=== PATIENT | male | born 1940 | race Caucasian/White ===

== ENCOUNTER 2019-09-06 23:20 | Emergency (ER) | payer OTHER, BC ==
[2019-09-07 00:04] VITALS: BP 121/58; PULSE 66; TEMP 98.1; BMI 41.3
[2019-09-07] MEDS ORDERED: ACETAMINOPHEN 500 MG TABLET (FP) PO ONE (00:17)
--- NOTE | 2019-09-07 00:17 | PDOC ---
History of Present Illness - General Chief Complaint: Injury Stated Complaint: FALL Time Seen by Provider: 09/06/19 23:56 Past History - Medical History Allergies/Adverse Reactions: Allergies Allergy/AdvReac Type Severity Reaction Status Date / Time No Known Allergies Allergy Verified 09/06/19 23:54 - Psycho-Social/Smoking History Smoking History: Never smoked - Substance Abuse Hx (Audit-C & DAST Scrn) How often the patient has a drink containing alcohol: Never Score: In Men: 4 or > Positive; In Women: 3 or > Positive: 0 Screen Result (Pos requires Nsg. Audit-10AR): Negative In the last yr the pt used illegal drug/Rx for NonMed reason: No Score: Yes response is considered Positive: 0 Screen Result (Positive result requires Nsg. DAST-10): Negative *Physical Exam - Vital Signs Last Vital Signs Temp Pulse Resp BP Pulse Ox 98.1 F 66 20 121/58 L 98 09/06/19 23:25 09/06/19 23:25 09/06/19 23:25 09/06/19 23:25 09/06/19 23:25 Discharge - Discharge Information Condition: Fair - Follow up/Referral - Patient Discharge Instructions - Post Discharge Activity
--- NOTE | 2019-09-07 00:35 | PDOC ---
History of Present Illness - General Chief Complaint: Injury Stated Complaint: FALL Time Seen by Provider: 09/06/19 23:56 History Source: Patient Exam Limitations: No Limitations - History of Present Illness Initial Comments: 09/07/19 00:19 78y M with PMH of CAD s/p stent x3, CHF, COPD (on 3L prn), SBO 01/2019, HTN, IDDM, BPH, Parkinson's Disease presenting to the ER via EMS s/p fall today. Pt states he was in the bathroom and when he got off the toilet, he lost balance and fell. He thinks he may have hit his head on the sink and his back on the tub. He did not attempt to stand up afterward. He is endorsing pain in the lower back. Denies numbness, LOC, headache, changes in vision, chest pain, sob, weakness, abdominal pain, n/v. Per daughter, pt has has been falling frequently, most recently last month where he was evaluated at [facility] and the month prior when he obtained a laceration. PMD has arranged [employer] DEVELOP[employer] but per insurance problems, there is no aide at home at the moment. Uses a walker/wheelchair at home. Daughter also states that patient has chronic erythema of the lower extremity proximal to the ankles for which he has taken antibiotics for 1.5 months ago. Shes states that there is no acute flair up and the erythema is getting better. Pt has been in his usual state of health prior to the fall. PMD: N[place]? PMH: see hpi PSh: see hpi Meds: see med rec Allergies: nkda Social: denies Past History - Medical History Allergies/Adverse Reactions: Allergies Allergy/AdvReac Type Severity Reaction Status Date / Time No Known Allergies Allergy Verified 09/06/19 23:54 - Psycho-Social/Smoking History Smoking History: Never smoked - Substance Abuse Hx (Audit-C & DAST Scrn) How often the patient has a drink containing alcohol: Never Score: In Men: 4 or > Positive; In Women: 3 or > Positive: 0 Screen Result (Pos requires Nsg. Audit-10AR): Negative In the last yr the pt used illegal drug/Rx for NonMed reason: No Score: Yes response is considered Positive: 0 Screen Result (Positive result requires Nsg. DAST-10): Negative Review of Systems - Review of Systems Constitutional: No: Symptoms Reported HEENTM: No: Symptoms Reported Respiratory: No: Symptoms reported Cardiac (ROS): No: Symptoms Reported ABD/GI: No: Symptoms Reported : No: Symptoms Reported Musculoskeletal: Yes: See HPI Integumentary: No: Symptoms Reported Neurological: Yes: See HPI *Physical Exam - Vital Signs Last Vital Signs Temp Pulse Resp BP Pulse Ox 98.1 F 66 20 121/58 L 98 09/06/19 23:25 09/06/19 23:25 09/06/19 23:25 09/06/19 23:25 09/06/19 23:25 - Physical Exam General Appearance: Yes: Nourished, Appropriately Dressed, Obese. No: Apparent Distress HEENT: positive: EOMI, CHRISTINE, Normal ENT Inspection Neck: positive: Trachea midline, Supple Respiratory/Chest: positive: Lungs Clear, Normal Breath Sounds. negative: Chest Tender, Paradoxal Breathing, Crackles, Rales, Rhonchi, Stridor, Wheezing Cardiovascular: positive: Regular Rhythm, Regular Rate, S1, S2. negative: JVD, Murmur Vascular Pulses: Dorsalis-Pedis (R): 2+, Doralis-Pedis (L): 2+ Gastrointestinal/Abdominal: positive: Normal Bowel Sounds, Soft, Other (healed surgical incision scar from suprapubic area to umbilicus). negative: Tender Musculoskeletal: negative: CVA Tenderness, Decreased Range of Motion, Muscle Spasm, Vertebral Tenderness Extremity: positive: Normal Capillary Refill, Pedal Edema (swelling of bilateral feet to ankles) Integumentary: positive: Normal Color, Dry, Warm, Erythema (of BLE proximal to a nkles with induration and warmth. 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 vitals wnl pt complaining of lower back pain. otherwise no neurological deficits, full ROM. erythema and warmth of ble appears cellutic, per pt and daughter, pt has chronic erythema, has been getting treatment. will hold off on abx/labs. -ct head, cspine, lumbar spine. -tylenol ct's negative for fracture. pt is able to ambulate with assistance. spoke to daughter about findings. will dc home. given return precatuions. ambulance called to take pt home. Discharge - Discharge Information Problems reviewed: Yes Clinical Impression/Diagnosis: Fall Qualifiers: Encounter type: initial encounter Qualified Code(s): W19.XXXA - Unspecified fall, initial encounter Condition: Fair Disposition: HOME - Admission No - Follow up/Referral - Patient Discharge Instructions Patient Printed Discharge Instructions: How to Prevent Falls Additional Instructions: You were seen in the ER today for a fall. The CT scans do not show a fracture. I recommend using your walker and/or wheelchair at all times. Please call your primary care doctor about needing assistance at home. Come back to the ER if you have a head injury, have weakness in the arm or leg, have stroke-like symptoms, have difficulty breathing, or if any new or concerning symptom develops. Thank you - Post Discharge Activity
[2019-09-07] MEDS ORDERED: ACETAMINOPHEN 325 MG TABLET (FP) ONE (00:37)
--- NOTE | 2019-09-07 00:58 | PDOC ---
Documentation entered by Barrie Staley SCRIBE, acting as scribe for Luis F Rojas MD. Luis F Rojas MD: This documentation has been prepared by the Rebeka hurley Nirvannie, SCRIBE, under my direction and personally reviewed by me in its entirety. I confirm that the documentation accurately reflects all work, treatment, procedures, and medical decision making performed by me. Attending Attestation - Resident Resident Name: Luzmaria Mathews - ED Attending Attestation I have performed the following: I have examined & evaluated the patient, The case was reviewed & discussed with the resident, I agree w/resident's findings & plan, Exceptions are as noted - HPI HPI: 09/07/19 00:47 The patient is a 78 year old male with a significant past medical hisotry of CAD (s/p cardiac stenting x3), CHF, COPD (3L as needed), HTN, IDDM, Parkinsons Disease, BPH, SBO (01/2019), who presents to the ED s/p fall. Pt states he lost his balance in the bathroom and fell backwards. Patient is unaware if he hit his head on the bathtub. He denies any LOC. Was unable to get up on his own after the fall so called EMS. Pt denies any lightheadedness/SOB/chest pain, or focal weakness/change in sensation. Allergies: NKDA - Physicial Exam PE: 09/07/19 00:59 See resident exam - Medical Decision Making 09/07/19 00:59 78 M with mechanical fall at home. No LOC. - CTs 09/07/19 02:30 CTs unremarkable Incidentally found to have bibasilar atelectasis vs PNA. Pt without respiratory symptoms, no cough, no fever. Low suspicion for PNA Pt ambulatory in ED with minimal assistance (at his baseline) Pt is well appearing, with normal vitals. Clinically stable for DC at this time. I discussed the physical exam findings, ancillary test results and final diagnoses with the patient. I answered all of the patient's questions. The patient was satisfied with the care received and felt comfortable with the discharge plan and treatment plan. The patient agrees to follow up with the primary care physician within 24-72 hours. Please note this patient was evaluated during the COVID-19 crisis with the presidential [place] Act Declaration and the [place] governor executive order number 202. He/she was evaluated and clinical decisions were made relative to healthcare system resources as well as clinical picture during a pandemic crisis situation. Discharge - Discharge Information Problems reviewed: Yes Clinical Impression/Diagnosis: Fall Qualifiers: Encounter type: initial encounter Qualified Code(s): W19.XXXA - Unspecified fall, initial encounter Condition: Fair Disposition: HOME - Follow up/Referral - Patient Discharge Instructions Patient Printed Discharge Instructions: How to Prevent Falls Additional Instructions: You were seen in the ER today for a fall. The CT scans do not show a fracture. I recommend using your walker and/or wheelchair at all times. Please call your primary care doctor about needing assistance at home. Come back to the ER if you have a head injury, have weakness in the arm or leg, have stroke-like symptoms, have difficulty breathing, or if any new or concerning symptom develops. Thank you - Post Discharge Activity
== END 2019-09-07 01:00 | disposition home or self-care (01) ==
LOC: JER 23:20
DX: S09.90XA Unspecified injury of head, initial encounter (principal); W19.XXXA Unspecified fall, initial encounter
CPT/HCPCS: 70450-TC; 72125-TC; 72131-TC; 99284-25

== ENCOUNTER 2019-12-12 13:52 | Inpatient (IN) | payer OTHER, BC ==
--- OUTSIDE RECORDS SUMMARY | 2019-12-12 14:12 | XMS ---
:1940 [facility] Providers Name Role Phone MD Gaudencio Unavailable Unavailable MD Gaudencio Unavailable Unavailable MD Gaudencio Unavailable Unavailable MD Gaudencio Unavailable Unavailable MD Gaudencio Unavailable Unavailable ESTHER KIMBROUGH Unavailable Unavailable KEVIN THAKKAR Unavailable Unavailable LILIANA RIVERA Unavailable Unavailable AMOS, ELENA Unavailable Unavailable NAV CARMONA Unavailable Unavailable EDILSON POLLARD Unavailable Unavailable DANIELLE CHACKO Unavailable Unavailable MD DESTINEY W Unavailable Unavailable EMERGENCY SERVICE, X Unavailable Unavailable Chandy Unavailable Unavailable Chandy Unavailable Unavailable Chandy Unavailable Unavailable Chandy Unavailable Unavailable Chandy Unavailable Unavailable DESTINEY, Devan Unavailable Devan CABELLO Unavailable Devan CABELLO Unavailable Devan CABELLO Unavailable CABELLO, W Unavailable CABELLO, W Unavailable DESTINEY, W Unavailable DESTINEY W Unavailable DESTINEY W Unavailable DESTINEY W Unavailable CABELLO, W Unavailable DESTINEY W Unavailable Devan CABELLO Unavailable MD DESTINEY W Unavailable Unavailable MD DESTINEY W Unavailable Unavailable Re-disclosure Warning The records that you are about to access may contain information from federally- assisted alcohol or drug abuse programs. If such information is present, then the following federally mandated warning applies: This information has been disclosed to you from records protected by federal confidentiality rules (42 CFR part 2). The federal rules prohibit you from making any further disclosure of this information unless further disclosure is expressly permitted by the written consent of the person to whom it pertains or as otherwise permitted by 42 CFR part 2. A general authorization for the release of medical or other information is NOT sufficient for this purpose. The Federal rules restrict any use of the information to criminally investigate or prosecute any alcohol or drug abuse patient.The records that you are about to access may contain highly sensitive health information, the redisclosure of which is protected by Article 27-F of the [facility] Public Health law. If you continue you may haveaccess to information: Regarding HIV / AIDS; Provided by facilities licensed or operated by the [facility] Office of Mental Health; or Provided by the [facility] Office for People With Developmental Disabilities. If such information is present, then the following [facility] mandated warning applies: This information has been disclosed to you from confidential records which are protected by state law. State law prohibits you from making any further disclosure of this information without the specific written consent of the person to whom it pertains, or as otherwise permitted by law. Any unauthorized further disclosure in violation of state law may result in a fine or half-way sentence or both. A general authorization for the release of medical or other information is NOT sufficient authorization for further disclosure. Allergies and Adverse Reactions Type Description Substance Reaction Status Data Source(s ) 9 N/A N/A [facility]) Encounters Encounter Providers Location Date Indications Data Source(s ) Emergency Attender: ATUL 07/19/2019 FINGER INJURY [facility] IVANAttender: 06:01:00 PM Health Car e EMERGENCY SERVICE, EDT Corpor ation XAdmitter: EDILSON POLLARD FINGER INJURY Emergency Attender: Cullen 05/22/2019 BOWEL OBSTUCTION [facility] MDAttender: 12:26:00 PM EDT Health Care EMERGENCY SERVICE, Corpor ation XAdmitter: Cullen Ratliff MD BOWEL OBSTUCTION Outpatient Attender: Woody 05/18/2019 06:00:00 R06.02 [facility] ChandyAdmitter: Woody AM EDT [facility] Care RobertoyReferrer: Woody Cor poration Marie R06.02 Outpatient Attender: AMOS 03/11/2019 06:00:00 S09.90 XA [facility] ZVIAdmitter: AM EST [facility] Care ActiveO ZVIReferrer: ELENA TRINIDAD S09.90XA Inpatient Attender: MIGUEL 01/08/2019 06:01:00 [facility] MARU [facility]A EST - 01/21/2019 [facility] MIGUEL, 06:44:00 PM [facility] Patient admitted. Emergency Attender: MIGUEL 01/08/2019 01:25:00 [facility] MARU RIVERA EST [facility] PAIN Outpatient Attender: MD STACIE RANDLE XR-YSKY 01/05/2019 lab test JEFF Alarcon: 06:00:00 AM [facility]: MD STACIE Alarcon: STACIE CABELLOReferrer: MD STACIE CABELLO lab test P Attender: MD STACIE RANDLE XR-YSKY 01/02/2019 lab test JEFF Alarcon: 10:37:46 PM EDT H [facility] Dorian: MD STACIE Alarcon: MD STACIE CABELLOReferrer: MD STACIE CABELLO lab test Inpatient Attender: 5th Floor-5th 01/02/2019 [facility] ( Abdi View [facility] 01:00:00 PM EDT - Rehabil itation & CABELLO 01/08/2019 Health Care nter 12:30:00 AM EST LLC) Patient discharged. Inpatient Attender: BIJAN 12/25/2018 01:55:00 [facility] PM EDT - 01/02/2019 [facility] 01:40:00 PM EDT Corporati on DISABILITY Patient admitted. Inpatient Attender: BIJAN 12/25/2018 12:58:00 DISABILIT [facility] MARIOAdmitter: BIJAN, PM EDT [facility] DISABILITY Inpatient Attender: BIJAN, 12/25/2018 06:00:00 DISABILIT Y [facility] MARIOAdmitter: BIJAN, AM EDT [facility] Inpatient Attender: LUIS E, 12/20/2018 10:40:00 [facility]BD [facility] MARU CARMONA EDT - 12/25/2018 Health Care NEALAttender: GINNA, 01:54:00 PM EDT C orporation RICHARDAdmitter: ESTHER KIMBROUGH COBD EXAC Outpatient Attender: GINNA, 12/18/2018 COBD EXAC [facility] RICHARDAttender: LUIS E, 02:22:00 PM EDT Health Care CHIKEREAdmitter: Maryse KIMBROUGH rpananya SANTANA COBD EXAC Emergency Attender: LUIS E, 12/18/2018 08:44:00 [facility]U KIMBROUGH EDT [facility] FoxyP2 Outpatient Attender: Woody 04/02/2018 06:00:00 J44.9 [facility] Woody MAHONEY EST [facility] Care ChandyReferrer: Woody Cor poration [facility] J44.9 Medications Medication Brand Start Product Dose Route Administrative Pharmacy [facility] Indications Reaction Description Data Name Date Form Instructions Instructions Source(s) Tdap Tdap 0.5 UNK active Tdap [facility] (Adacel) (Adace 2019 mL (Adacel) Inj r [facility] Inj l) Inj 07:14: 0.5 mL Health 53 PM Care EDT Corporatio n Medication administered onsite Lidocaine 1% Lidocaine 1% 07/19/2019 0 MG UNK active Lidocaine [place] ; Give ; Give 05:52:48 PM 1% ; Give [facility] EDT to provider Care to admin [facility] Medication administered onsite Ondansetron 05/22/2019 999 UNK completed On dansetron [place] HCl 4 MG Oral 05:23:16 PM MG HCl 4 MG [facility] [place] [place] EDT Oral Tablet Health C are TAKE 1 Corporation TABLET EVERY 6 TO 8 HOURS NEEDED FOR PAIN. Dispense: 12 Supervising physician: Cullen Ratliff MD Ondansetron 05/22/2019 999 UNK completed On dansetron [place] HCl 4 MG Oral 05:23:16 PM MG HCl 4 MG [facility] Tab EDT Oral Tablet Health C are TAKE 1 Corporation TABLET EVERY 6 TO 8 HOURS NEEDED FOR PAIN. Dispense: 12 Supervising physician: Cullen Ratliff MD Gastroview PO Gastroview 05/22/2019 1000 UNK active Gastroview [place] Contra PO Contra 01:04:55 PM mL PO Con trast [facility] EDT (Adult) 1000 Health Care mL PO Corporation Medication administered onsite 0.9% 0.9% 05/22/2019 1000 mL UNK active 0.9% NaC l [place] NaCl IV NaCl IV 01:04:55 PM IV 1000 mL; [facility] EDT IV rate: Care Bolus over Corporati on 30 minutes Medication administered onsite Zofran Zofran 05/22/2019 4 mg UNK active Zofran 4mg/2mL [place] 4mg/2mL 4mg/2mL 01:04:55 PM (Ondans etron) [facility] (Onda (Onda EDT Injection 4 mg Car e IV Corporation Medication administered onsite Zofran Zofran 01/08/2019 4 mg UNK active Zofran 4mg/2mL [place] 4mg/2mL 4mg/2mL 03:26:31 AM (Ondans etron) [facility] (Onda (Onda EST Injection 4 mg Car e IVP Corporation Medication administered onsite 0.9% 0.9% 01/08/2019 1000 mL UNK active 0.9% NaC l [place] NaCl IV NaCl IV 01:58:07 AM IV 1000 mL; [facility] EST IV rate: Care Bolus over Corporati on 30 minutes Medication administered onsite Gastroview Gastroview 01/08/2019 1000 UNK active Gastroview [place] PO Contra PO Contra 01:44:50 AM mL PO Contrast [facility] EST (Adult) Health Care 1000 mL PO Corporati on Medication administered onsite lactulose 10 Lactulose 667 01/07/2019 completed lactulose 10 [facility] (Abdi gram/15 mL MG/ML Oral 11:41:11 AM g deamrco/15 mL View oral solution Solution EST oral Re habilitation solution & Health Ca re [facility]) prednisone Prednisone 01/05/2019 completed prednisone [facility] (Abdi 2.5 mg tablet 2.5 MG Oral 11:00:00 PM 2.5 mg View Tablet EST tablet Rehabilitat ion & [facility] Care [facility]) Miriam [id number] 01/05/2019 completed Mylanta [facility] (Abdi Maximum 07:00:00 PM Maximum Vi ew Strength EST Strength 400 Jane abilitation (alum-mag mg-400 mg-40 & Health Care hydroxide-sim mg/5 mL ora l [facility]) eth) 400 suspension mg-400 mg-40 mg/5 mL oral suspension Prilosec [id number] 01/05/2019 completed Prilosec 20 [facility] (Abdi (omeprazole) 07:00:00 PM mg View 20 mg EST capsule,hermes Rehabi litation capsule,delay yed release & Health Care ed release [place] [facility]) Miriam [id number] 01/05/2019 completed Mylanta [facility] (Abdi Maximum 01:33:41 AM Maximum Vi ew Strength EST Strength 400 Jane abilitation (alum-mag mg-400 mg-40 & Health Care hydroxide-sim mg/5 mL [facility]) eth) 400 suspension mg-400 mg-40 mg/5 mL oral suspension Zofran [id number] 01/04/2019 completed Zofran 8 mg [facility] (Abdi (ondansetron 08:00:00 PM table t View hcl) 8 mg EST Rehabilita tion tablet & [facility]) metoprolol [id number] 01/04/2019 completed metoprolol [facility] (Abdi succinate ER 03:46:26 PM succi lissette ER View 50 mg EST 50 mg Rehabilitatio n tablet,extend tablet,exte n & Health Care ed release 24 ded release [facility]) hr 24 hr Fleet Enema Sodium 01/04/2019 completed Fleet Enema [facility] (Abdi (sodium Phosphate, 01:56:53 PM 19 g demarco-7 View phosphates) Dibasic 59.3 EST gram/ 118 mL Rehabilitation 19 gram-7 MG/ML / & Healt h Care gram/118 mL Sodium [facility]) Phosphate, Monobasic 161 MG/ML Enema [Fleet Enema] prednisone 5 Prednisone 5 01/03/2019 completed prednisone 5 [facility] (Abdi mg tablet MG Oral 12:00:00 AM mg ta blet View Tablet EDT Rehabilitatio n & Health Care [facility]) zinc oxide 20 Zinc Oxide 01/02/2019 completed zinc oxide [facility] (Abdi % topical 0.2 MG/MG 10:20:49 AM 20 % topical View ointment Topical EDT ointment Reha bilitation Ointment & Health [facility]) ammonium ammonium 01/02/2019 completed a mmonium [facility] (Abdi lactate 12 % lactate 120 10:20:49 AM lactate 12 % View lotion MG/ML Topical EDT lotion Re habilitation Lotion & Health Care [facility]) Lantus 3 ML Insulin 01/02/2019 completed Lantus [facility] (Abdi Solostar Glargine 100 08:20:13 AM S olostar View U-100 Insulin UNT/ML Pen EDT U-100 Rehabilitation (insulin Injector Insulin 100 & Health Care glargine) 100 [Lantus] unit/mL ( Center [facility]) unit/mL (3 mL) mL) subcutaneous subcutaneous pen pen Humalog 3 ML Insulin 01/02/2019 completed Humalog [facility] (Abdi KwikPen Lispro 100 06:25:45 AM Kwik Pen View (U-100) UNT/ML Pen EDT (U-100) Jane abilitation (insulin Injector Insulin 100 & Health Care lispro) [Humalog] unit/mL [facility]) Insulin 100 subcutaneous unit/mL subcutaneous senna 8.6 mg sennosides, 01/02/2019 completed senna 8.6 mg [facility] (Abdi tablet SENIOR CARE 8.6 MG 06:12:04 AM table t View Oral Tablet EDT Rehabili [facility] & [facility] Care [facility]) Spiriva with tiotropium 01/02/2019 completed Spiriva with [facility] (Abdi HandiHaler 0.018 MG 06:12:04 AM Win diHaler View (tiotropium Inhalation EDT 18 mcg and Rehabilitation bromide) 18 Powder inhalation & Health Care mcg and [Spiriva] capsules [facility]) inhalation capsules Saline Nasal Sodium 01/02/2019 completed Saline Nasal [facility] (Abdi [place] (sodium Chloride 06:12:04 AM [place] 0.65 % View chloride) 0.111 MEQ/ML EDT aerosol Rehabilitation 0.65 % Nasal [place] & [facility] aerosol [facility]) Symbicort 120 ACTUAT 01/02/2019 completed Symbicort [facility] (Abdi (budesonide-f Budesonide 06:12:04 AM 160 mcg-4.5 View ormoterol) 0.16 EDT mcg/actuatio R ehabilitation 160 mcg-4.5 MG/ACTUAT / n HFA & Health Care mcg/actuation formoterol [facility] ol [facility]) HFA aerosol fumarate inhaler inhaler 0.0045 MG/ACTUAT Metered Dose Inhaler [Symbicort] Flomax [id number] 01/02/2019 completed Flomax 0.4 [facility] (Abdi (tamsulosin) 06:12:04 AM mg ca psule View 0.4 mg [facility]T [facility] & Health Car e [facility]) mirtazapine Mirtazapine 01/02/2019 completed mirtazapine [facility] (Abdi 15 mg tablet 15 MG Oral 06:12:04 AM 15 mg tablet View Tablet EDT [facility] [place] [facility] & [facility]) metoprolol Metoprolol 01/02/2019 completed metoprolol [facility] (Abdi tartrate 50 Tartrate 50 06:12:04 AM tartrate 50 View mg tablet MG Oral EDT mg tablet Re habilitation Tablet & [facility] Care [facility]) losartan 50 Losartan 01/02/2019 completed losartan 50 [facility] (Abdi mg tablet Potassium 50 06:12:04 AM mg tablet View MG Oral EDT Rehabilitati on Tablet & [facility] Care [facility]) potassium Microencapsul 01/02/2019 completed potassium [facility] (Abdi chloride ER ated 06:12:04 AM chlori de ER View 20 mEq Potassium EDT 20 mEq Rehabi litation tablet,extend Chloride 20 tabl et,exten & Health Care ed MEQ Extended ded [facility]) release(part/ Release Oral rel ease(part cryst) Tablet /cryst) isosorbide 24 HR 01/02/2019 completed is osorbide [facility] (Abdi mononitrate Isosorbide 06:12:03 AM mononitrate View ER 60 mg Mononitrate EDT ER 60 mg Rehabilitation tablet,extend 60 MG tablet,ext en & Health Care ed release 24 Extended ded rel ease [facility]) hr Release Oral 24 hr Tablet gabapentin gabapentin 01/02/2019 completed gabapentin [facility] (Abdi 600 mg tablet 600 MG Oral 05:53:08 AM 600 mg View Tablet EDT tablet Rehabilitat ion & Health [facility] [place] [facility]) heparin heparin 01/02/2019 completed hep cydney [facility] (Abdi (porcine) sodium, 05:53:08 AM (porc ine) View 5,000 unit/mL porcine 5000 EDT 5,0 00 Rehabilitation injection UNT/ML unit/mL & [facility] Care solution Injectable injection [facility]) Solution solution finasteride 5 Finasteride 5 01/02/2019 completed finasteride [facility] (Abdi mg tablet MG Oral 05:53:08 AM 5 mg tablet View Tablet EDT Rehabilitatio n & Health Care [facility]) Lasix Furosemide 80 01/02/2019 completed Lasix 80 mg [facility] (Abdi (furosemide) MG Oral 05:53:08 AM ta blet View 80 mg tablet Tablet EDT Rehab ilitation [Lasix] & Health Car e [facility]) Cymbalta duloxetine 60 01/02/2019 completed Cymbalta 60 [facility] (Abdi (duloxetine) MG Delayed 05:53:07 AM mg View 60 mg Release Oral EDT capsule,del a Rehabilitation capsule,delay Capsule yed rele [facility] & Health Care ed release [Cymbalta] [facility]) docusate [id number] 01/02/2019 completed docusate [facility] (Abdi sodium 100 mg 05:53:07 AM sodi um 100 View tablet EDT mg tablet [facility] Health Care [facility]) Plavix clopidogrel 01/02/2019 completed Plavix 75 mg [facility] (Abdi (clopidogrel) 75 MG Oral 05:53:07 AM tablet View 75 mg tablet Tablet EDT Rehab ilitation [Plavix] & Health Ca re [facility]) Aspirin Aspirin 81 MG 01/02/2019 completed Aspirin [facility] (Abdi Childrens Chewable 05:53:07 AM Chil drens 81 View (aspirin) 81 Tablet EDT mg chewabl e Rehabilitation mg chewable tablet & [facility] tablet [facility]) carbidopa 25 Carbidopa 25 01/02/2019 completed carbidopa 25 [facility] (Abdi mg-levodopa MG / Levodopa 05:53:07 AM mg-levodopa View 100 mg tablet 100 MG Oral EDT 100 mg Rehabilitation Tablet tablet & Health Ca re Center [facility]) Wellbutrin XL 24 HR 01/02/2019 completed Wellbutrin [facility] (Abdi (bupropion Bupropion 05:53:07 AM XL 300 mg 24 View hcl) 300 mg Hydrochloride EDT hr t ablet, Rehabilitation 24 hr tablet, 300 MG extended & Health Care extended Extended [facility]) release Release Oral Tablet [Wellbutrin] atorvastatin atorvastatin 01/02/2019 completed atorvastatin [facility] (Abdi 80 mg tablet 80 MG Oral 05:53:07 AM 80 mg tablet View Tablet EDT [facility] Care [facility]) amlodipine 10 Amlodipine 10 01/02/2019 completed amlodipine [facility] (Abdi mg tablet MG Oral 05:53:07 AM 10 mg tablet View Tablet EDT [facility] & [facility] Care [facility]) Tubersol Purified 01/02/2019 completed T ubersol 5 [facility] (Abdi (tuberculin Protein 05:40:09 AM tub . View ppd) 5 tub. Derivative of EDT unit /0.1 mL Rehabilitation unit/0.1 mL Tuberculin 50 intr adermal & Health Care intradermal UNT/ML injection C enter [facility]) injection Injectable solution solution Solution [Tubersol] Milk of Magnesium 01/02/2019 completed M ilk of [facility] (Abdi Magnesia Hydroxide 80 05:40:09 AM M agnesia 400 View (magnesium MG/ML Oral EDT mg/5 mL oral Rehabilitation hydroxide) Suspension suspensi on & Health Care 400 mg/5 mL Center L ) oral suspension acetaminophen Acetaminophen 01/02/2019 completed acetaminophe [facility] (Abdi 325 mg tablet 325 MG Oral 05:40:09 AM n 325 mg View Tablet EDT tablet Rehabilitat ion & Health Care [facility]) bisacodyl 5 Bisacodyl 5 01/02/2019 completed bisacodyl 5 [facility] (Abdi mg MG Delayed 05:40:08 AM mg Vi ew tablet,delaye Release Oral EDT tab let,delay Rehabilitation d release Tablet ed release & Health Care Center [facility]) Solu-Medrol Solu-Medrol 12/18/2018 40 UNK active Solu-Medrol [place] (Methylp (Methylp 01:33:41 PM mg (Meth ylpredn [facility] EDT isolone Sod Care Succ) Corporation Injection 40 mg IVP Medication administered onsite Diazepam Diazepam 12/18/2018 2 mg UNK active Sharifa zepam [place] 10mg / 2 mL 10mg / 2 mL 10:37:19 AM 10mg/2mL [facility] EDT (Valium) Care Injection 2 Corporat ion mg IVP Medication administered onsite Ketorolac 30 Ketorolac 30 12/18/2018 15 UNK active Ketorolac [place] mg / mL mg / mL 10:37:10 AM mg 30 mg/m L [facility] EDT (Toradol) Care Injection Corporatio n 15 mg IVP Medication administered onsite DuoNeb DuoNeb 12/18/2018 0.5 UNK active DuoNeb 0.5/3mg/3mL [place] 0.5/3mg/3mL 0.5/3mg/3mL 09:03:35 AM /3 (Ipratropium/Albuterol) [facility] EDT Inh Give 0.5/3mg /3 mL Health Care Inhalation (3 times in May) Medication administered onsite Furosemide Furosemide 12/18/2018 80 UNK active Furosemide [place] (Lasix) I (Lasix) I 09:03:35 AM mg (La six) [facility] Give 80 mg Corporat ion IVP Medication administered onsite 3 ML Insulin Lantus Solostar 12/18/2018 completed [place] Glargine 100 (Insulin 12:00:00 AM [facility] UNT/ML Pen Glargine) [100 EDT Care Injector Lantus unit/mL (3 mL) Corporation Solostar Insulin Pen]: 38 (Insulin Unit Glargine) [100 Subcutaneous unit/mL (3 mL) DAILY Insulin Pen]: 38 Unit Subcutaneous DAILY Insurance Providers Payer name Policy type Policy ID Covered Covered republican's Policy P nathan / Coverage republican ID relationship to Foster Inf ormation type foster PPO [id number] MEDICARE [id number] SP [id number] UNK UNK UNK UNK [id number] UNK UNK UNK Blue Cross / Blue Cross / [id number] Self [id number] [facility] 79 Medicare Medicare [id number] Self [id number] Part B Part B 8 Medicare Medicare [id number] Self [id number] Part A Part A 8 SELF PAY SP Medicare Medicare [id number] Self [id number] Part A Part A 8 UNK [id number] UNK UNK UNK Blue Cross / 6 [id number] Self [id number] [place] [id number] Medicare 2 [id number] Self [id number] Part B 8 Medicare 18 [id number] Self [id number] Part A 8 SELF PAY SP UNK [id number] UNK UNK UNK Problems, Conditions, and Diagnoses Code Display Name Description Problem Type Effective Data Sour ce(s) Dates Z79.4 [facility] (current) RESIDENTIAL [facility] (CURRENT) USE OF 06:01:00 PM Cou [facility] [employer] INSULIN EDT Care Corporati on G20 Parkinson's disease PARKINSON'S Diagnosis 07/19/2019 [facility] DISEASE 06:01:00 PM [facility] EDT Care Corporati on 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 07/19/2019 [facility] infarction INFARCTION 06:01:00 PM [facility] EDT Care Corporati on J44.9 Chronic obstructive CHRONIC Diagnosis 07/19/2019 [facility], OBSTRUCTIVE 06:01:00 PM [facility] unspecified PULMONARY EDT Care Corporat ion DISEASE, UNSPECIFIED E11.9 Type 2 diabetes TYPE 2 DIABETES [facility]LL[facility] WITHOUT 06:01:00 PM C ount Health complications COMPLICATIONS EDT Care Cor poration I50.32 Chronic diastolic CHRONIC DIASTOLIC Diagnosis 07/19/2019 [place] (congestive) heart (CONGESTIVE) 06:01:00 PM [facility] [employer] [facility] failure HEART FAILURE EDT Care Corpor ation I11.0 Hypertensive heart HYPERTENSIVE Diagnosis 07/19/2019 [place] [facility] disease with heart HEART DISEASE 06:01:00 PM Co unty Health failure WITH HEART EDT Care Corporati on FAILURE Z23 Encounter for ENCOUNTER FOR Diagnosis 07/19/2019 [facility] immunization IMMUNIZATION 06:01:00 [facility] alth EDT Care Corporati on Y99.8 Other external OTHER EXTERNAL Diagnosis 07/19/2019 [facility] geraldine cause status CAUSE STATUS 06:01:00 [facility] EDT Care Corporati on Y92.[address] O[address] PLACE IN OTH Diagnosis 07/19/2019 [place] other NON-INSTITUTIONAL 06:01:00 PM [facility] non-institutional RESIDENCE EDT Care Corporation residence as the PLACE place of occurrence of the external cause W05.0XXA Fall from FALL FROM Diagnosis 07/19/2019 [place] non-moving NON-MOVING 06:01:00 PM [facility] wheelchair, initial WHEELCHAIR, EDT Care Corporation encounter INITIAL ENCOUNTER S80.11XA Contusion of right CONTUSION OF Diagnosis 07/19/2019 [place] lower leg, initial RIGHT LOWER LEG, 06:01:00 PM [facility] encounter INITIAL ENCOUNTER EDT Care Co rporation S50.01XA Contusion of right CONTUSION OF Diagnosis 07/19/2019 [place] elbow, initial RIGHT ELBOW, 06:01:00 [facility] encounter INITIAL ENCOUNTER EDT Care Co rporation S61.216A Laceration without LAC W/O FB OF R Diagnosis 07/19/2019 [facility] foreign body of LITTLE FINGER W/O 06:01:00 PM [facility] [employer] right little finger DAMAGE TO NAIL, EDT [facility] [employer] without damage to INIT nail, initial encounter Z98.890 Other specified OTHER SPECIFIED Diagnosis 05/22/2019 [place] postprocedural POSTPROCEDURAL 12:26:00 PM [facility] y Health states STATES EDT Care [facility] on 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 05/22/2019 [facility] use of oral (CURRENT) USE OF 12:26:00 PM [facility] hypoglycemic drugs ORAL HYPOGLYCEMIC EDT Care [employer] DRUGS Z87.2 Personal history of PERSONAL HISTORY Diagnosis 05/22/2019 [place] diseases of the OF DISEASES OF 12:26:00 PM [facility] skin and THE SKIN, SUBCU EDT Care Janie oration subcutaneous tissue E04.9 Nontoxic goiter, NONTOXIC GOITER, Diagnosis 05/22/2019 Reynaldo jacinto unspecified UNSPECIFIED 12:26:00 [facility] EDT Care [employer] on M19.90 Unspecified UNSPECIFIED Diagnosis 05/22/2019 [place] osteoarthritis, OSTEOARTHRITIS, 12:26:00 PM [facility] Health unspecified site UNSPECIFIED SITE EDT Ca re Corporation F32.9 Major depressive MAJOR DEPRESSIVE Diagnosis 05/22/2019 Reynaldo [facility] disorder, single DISORDER, SINGLE 12:26:00 PM [facility] episode, EPISODE, EDT Care [employer] on unspecified UNSPECIFIED I50.30 Unspecified UNSPECIFIED Diagnosis 05/22/2019 [place] diastolic DIASTOLIC 12:26:00 PM [facility] (congestive) heart (CONGESTIVE) EDT [facility] failure HEART FAILURE J45.909 Unspecified asthma, UNSPECIFIED Diagnosis 05/22/2019 [place] uncomplicated ASTHMA, 12:26:00 PM [facility] UNCOMPLICATED EDT Care Corpor ation R10.84 Generalized GENERALIZED Diagnosis 05/22/2019 [place] abdominal pain ABDOMINAL PAIN 12:26:00 PM [facility] Health EDT Care [employer] on R19.7 Diarrhea, DIARRHEA, Diagnosis 05/22/2019 [place] unspecified UNSPECIFIED 12:26:00 PM [facility] EDT Care [facility] on R11.2 Nausea with NAUSEA WITH Diagnosis 05/22/2019 [place] vomiting, VOMITING, 12:26:00 PM [facility] unspecified UNSPECIFIED EDT Care Corpora tion R06.02 Shortness of breath SHORTNESS OF Diagnosis 05/18/2019 [place] BREATH 06:00:00 AM [facility] EDT Care Corpor[facility] on S09.90XA Unspecified injury UNSPECIFIED Diagnosis 03/11/2019 [facility] lopez of head, initial INJURY OF HEAD, 06:00:00 AM [facility] Health encounter INITIAL ENCOUNTER EST Care Co rporation 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 ACQUIRED ABSENCE Diagnosis 01/21/2019 [place] stomach [part of] OF STOMACH (PART 06:44:00 PM [facility] OF) EST [facility] [employer] on E66.9 Obesity, OBESITY, Diagnosis 01/21/2019 [place] unspecified UNSPECIFIED 06:44:00 PM [facility] EST [facility] on K59.09 Other constipation OTHER Diagnosis 01/21/2019 [facility] geraldine CONSTIPATION 06:44:00 PM [facility] EST [facility] on Z87.891 Personal history of PERSONAL HISTORY Diagnosis 01/21/2019 [place] nicotine dependence OF NICOTINE 06:44:00 PM [facility] Health DEPENDENCE EST [facility] [employer] on Z79.899 Other shelter OTHER RESIDENTIAL Diagnosis 01/21/2019 [place] (current) drug (CURRENT) DRUG 06:44:00 PM Count y Health therapy THERAPY EST [facility] [employer] on 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 01/21/2019 [facility] heart disease of DISEASE OF [place] 06:44:00 PM [facility] kashia coronary CORONARY ARTERY EST [facility] artery without W/O ANG PCTRS angina pectoris Z68.41 Body mass index BODY MASS INDEX Diagnosis 01/21/2019 [place] (BMI) 40.0-44.9, (BMI) 40.0-44.9, 06:44:00 PM [facility] [employer] adult ADULT EST [facility] [employer] on K56.50 Intestinal INTESTNL Diagnosis 01/08/2019 [place] adhesions [bands], ADHESIONS, UNSP 06:01:00 AM [facility] unspecified as to TO PARTIAL EST [facility] partial versus VERSUS COMPLETE complete OBST obstruction E66.01 Morbid (severe) Morbid (severe) Diagnosis 01/08/2019 [facility] ([place] obesity due to obesity due to 12:00:00 AM View excess calories excess calories EST [facility]ha bilitation & [facility]) 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 01/08/2019 [facility] ([place] peripheral peripheral 12:00:00 AM View autonomic autonomic EST Rehabilitation & neuropathy neuropathy [facility]) K30 Functional Functional Diagnosis 01/05/2019 [facility] ([place] dyspepsia dyspepsia 12:00:00 AM View EST [facility]) R11.2 Nausea with Nausea with Diagnosis 01/05/2019 [facility] ([place] vomiting, vomiting, 12:00:00 AM View unspecified unspecified EST Rehabilitati on & [facility]) I50.33 Acute on chronic Acute on chronic Diagnosis 01/05/2019 [facility] ([place] diastolic diastolic 12:00:00 AM View (congestive) heart (congestive) EST Reha bilitation & failure heart failure [facility]) K59.09 Other constipation Other Diagnosis 01/04/2019 [facility] (Abdi constipation 12:00:00 AM View ED [facility]) Z95.1 Presence of PRESENCE OF Diagnosis 01/02/2019 [place] aortocoronary AORTOCORONARY 01:40:00 PM [facility] bypass graft BYPASS GRAFT EDT Care [employer]po ration F41.8 Other specified OTHER SPECIFIED Diagnosis 01/02/2019 [place] anxiety disorders ANXIETY DISORDERS 01:40:00 PM [facility] EDT Care [employer] on N40.0 Benign prostatic BENIGN PROSTATIC Diagnosis 01/02/2019 [facility] hyperplasia without HYPERPLASIA 01:40:00 PM [facility] lower urinary tract WITHOUT LOWER EDT Ca Corporation symptoms URINRY TRACT SYMP E78.5 Hyperlipidemia, HYPERLIPIDEMIA, Diagnosis 01/02/2019 [place] unspecified UNSPECIFIED 01:40:00 PM [facility] EDT [facility] on E66.01 Morbid (severe) MORBID (SEVERE) Diagnosis 01/02/2019 [place] obesity due to OBESITY DUE TO 01:40:00 PM Count y Health excess calories EXCESS CALORIES EDT [facility] J18.9 Pneumonia, PNEUMONIA, Diagnosis 01/02/2019 [place] unspecified UNSPECIFIED 01:40:00 PM [facility] organism ORGANISM EDT [facility] on L30.9 Dermatitis, Dermatitis, Diagnosis 01/02/2019 [facility] ([place] unspecified unspecified 12:00:00 AM View EDT [facility]) L85.3 Xerosis cutis Xerosis cutis Diagnosis 01/02/2019 [facility] (Abdi 12:00:00 AM View ED [facility]) R09.81 Nasal congestion Nasal congestion Diagnosis 01/02/2019 [facility] (Abdi 12:00:00 AM View [facility]) E87.6 Hypokalemia Hypokalemia Diagnosis 01/02/2019 [facility] ([place] 12:00:00 AM View [facility]) F32.0 Major depressive Major depressive Diagnosis 01/02/2019 [facility] ([place] disorder, single disorder, single 12:00:00 AM V iew episode, mild episode, mild EDT Rehabili [facility]) Z29.9 Encounter for Encounter for Diagnosis 01/02/2019 [facility] ([place] prophylactic prophylactic 12:00:00 AM View measures, measures, EDT Rehabilitation & unspecified unspecified [facility]) 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 01/02/2019 [facility] ([place]di due to underlying undrl condition w 12:00:00 AM View condition with diabetic EDT Rehabilita tion & diabetic mononeuropathy [facility] ) Z11.1 Encounter for Encounter for Diagnosis 01/02/2019 [facility] ([place] screening for screening for 12:00:00 AM View respiratory respiratory EDT Rehabilitati on & tuberculosis tuberculosis Health [facility] Center [facility]) R52 Pain, unspecified Pain, unspecified Diagnosis 01/02/2019 [facility] (Abdi 12:00:00 AM View EDT [facility]) K59.00 Constipation, Constipation, Diagnosis 01/02/2019 [facility] ([place] unspecified unspecified 12:00:00 AM View EDT [facility]) G47.30 Sleep apnea, Sleep apnea, Diagnosis 01/02/2019 [facility] ([place] unspecified unspecified 12:00:00 AM View EDT [facility]) R06.02 Shortness of breath Shortness of Diagnosis 01/02/2019 [facility] ([place] breath 12:00:00 AM View EDT [facility]) N40.1 Benign prostatic Benign prostatic Diagnosis 01/02/2019 [facility] ([place] hyperplasia with hyperplasia with 12:00:00 AM V iew lower urinary tract lower urinary EDT Re habilitation & symptoms tract symp [facility]) F32.1 Major depressive Major depressive Diagnosis 01/02/2019 [facility] ([place] disorder, single disorder, single 12:00:00 AM V iew episode, moderate episode, moderate EDT [facility]) G20 Parkinson's disease Parkinson's Diagnosis 01/02/2019 [facility] ([place] disease 12:00:00 AM View EDT [facility]) E11.9 Type 2 diabetes Type 2 diabetes Diagnosis 01/02/2019 [facility] ([place] mellitus without mellitus without 12:00:00 AM V iew complications complications EDT Rehabili tation & [facility]) E78.5 Hyperlipidemia, Hyperlipidemia, Diagnosis 01/02/2019 [facility] ([place] unspecified unspecified 12:00:00 AM View EDT [facility]) 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 01/02/2019 [facility] RE (Abdi heart disease of disease of kashia 12:00:00 AM View k[place]ia coronary coronary artery EDT Reha bilitation & artery without w/o ang pctrs [facility] angina [facility]) I10 Essential (primary) Essential Diagnosis 01/02/2019 [facility] ([place] hypertension (primary) 12:00:00 AM View hypertension EDT Rehabilitati on & [facility]) J44.9 Chronic obstructive Chronic Diagnosis 01/02/2019 [facility] ([place] pulmonary disease, obstructive 12:00:00 AM View unspecified pulmonary EDT Rehabilitatio n & disease, [facility] Care unspecified [facility]) I50.32 Chronic diastolic Chronic diastolic Diagnosis 01/02/2019 [facility] (Abdi (congestive) heart (congestive) 12:00:00 AM Vie w failure heart failure EDT Rehabilitat ion & [facility]) R53.81 Other malaise OTHER MALAISE Diagnosis 12/25/2018 [facility] 01:55:00 PM [facility] EDT Care Corpor[facility] on G89.29 Other chronic pain OTHER CHRONIC Diagnosis 12/25/2018 [place] PAIN 01:54:00 PM [facility] EDT Care Corporati on J96.11 Chronic respiratory CHRONIC Diagnosis 12/25/2018 [facility] lopez failure with RESPIRATORY 01:54:00 PM [facility] hypoxia FAILURE WITH EDT Care Corpora tion HYPOXIA N39.0 Urinary tract URINARY TRACT Diagnosis 12/25/2018 [facility] infection, site not INFECTION, SITE 01:54:00 PM [facility] specified NOT SPECIFIED EDT Care Corpor ation G62.9 Polyneuropathy, POLYNEUROPATHY, Diagnosis 12/25/2018 [place] unspecified UNSPECIFIED 01:54:00 PM [facility] EDT Care Corporati on D50.9 Iron deficiency IRON DEFICIENCY Diagnosis 12/25/2018 [place] anemia, unspecified ANEMIA, 01:54:00 PM Coun [facility] UNSPECIFIED EDT Care Corporat ion K21.9 Gastro-esophageal GASTRO-ESOPHAGEAL Diagnosis 12/25/2018 [place] reflux disease REFLUX DISEASE 01:54:00 PM Count y Health without esophagitis WITHOUT EDT [facility] ESOPHAGITIS Results ID Date Data Source [id number] 01/21/2019 02:15:00 AM EST [facility] [id number] Corporation Name Value Range Interpretation Description Data Sup porting Code Source(s) Document(s ) Erythrocytes 4.48 m/mm3 4.70-6 <td> 01/21/2019 [facility] [#/volume] in .10 02:15</td><td> [facility] Blood m/mm3 RBC Health Care </td><td><Nexgence raph styleCode="Bold "> 4.48 L </paragraph>
(4.70-6.10) m/mm3 </td> Hemoglobin 9.6 g/dL 14.0-1 <td> 01/21/2019 [place] [Mass/volume] 8.0 02:15</td><td> [facility] in Blood g/dL HGB [facility] </td><td><Nexgence raph styleCode="Bold "> 9.6 L </paragraph>
(14.0-18.0) g/dL </td> Leukocytes 9.6 k/mm3 4.8-10 <td> 01/21/2019 [place] [#/volume] in .8 02:15</td><td> [facility] Blood by k/mm3 WBC </td><td> Health Care Automated Corporation count 9.6
(4.8-10.8) k/mm3 </td> Hematocrit 33.2 % 40.8-4 <td> 01/21/2019 [place] [Volume 6.9 % 02:15</td><td> County Fraction] of HCT Health Care Blood by </td><td><Nexgence Automated raph count styleCode="Bold "> 33.2 L </paragraph>
(40.8-46.9) % </td> Erythrocyte 74.1 fL 80.0-9 <td> 01/21/2019 [place] mean 4.0 fL 02:15</td><td> [facility] corpuscular [facility] volume </td><td><frank Corporation [Entitic raph volume] by styleCode="Bold Automated "> count 74.1 L </paragraph>
(80.0-94.0) fL </td> Erythrocyte 21.4 pg 27.0-3 <td> 01/21/2019 [place] mean 1.5 pg 02:15</td><td> [facility] corpuscular [facility] hemoglobin </td><td><frank Corporation [Entitic mass] raph by Automated styleCode="Bold count "> 21.4 L </paragraph>
(27.0-31.5) pg </td> Erythrocyte 28.9 % 32.0-3 <td> 01/21/2019 [place] mean 6.0 % 02:15</td><td> [facility] corpuscular [facility] hemoglobin </td><td><frank Corporation concentration raph [Mass/volume] styleCode="Bold in Blood from "> Fetus by 28.9 Automated L count </paragraph>
(32.0-36.0) % </td> Lymphocytes 8.8 % 16.0-5 <td> 01/21/2019 [place] [#/volume] in 0.0 % 02:15</td><td> [facility] Blood by Lymphocytes Health Care Automated </td><td><[employer] count raph styleCode="Bold "> 8.8 L </paragraph>
(16.0-50.0) % </td> Platelets 425 k/mm3 160-41 <td> 01/21/2019 [place] [#/volume] in 0 02:15</td><td> [facility] Blood by k/mm3 Platelet Count Health Care Automated </td><td><frank Corporation count raph styleCode="Bold "> 425 H </paragraph>
(160-410) k/mm3 </td> Platelet mean 9.6 fL 9.8-12 <td> 01/21/2019 [facility] r volume .8 fL 02:15</td><td> County [Entitic MPV [facility] volume] in </td><td><Nexgence Blood by raph Automated styleCode="Bold count "> 9.6 L </paragraph>
(9.8-12.8) fL </td> Erythrocyte 19.7 % 11.5-1 <td> 01/21/2019 [place] distribution 4.5 % 02:15</td><td> [place] width [Entitic RDW Health Care volume] by </td><td><frank [employer] Automated raph count styleCode="Bold "> 19.7 H </paragraph>
(11.5-14.5) % </td> Basophils 0.4 % 0.0-2. <td> 01/21/2019 [place] [#/volume] in 0 % 02:15</td><td> [facility] Blood by Basophils Health Care Automated </td><td> Corporation count 0.4
(0.0-2.0) % </td> Monocytes/Leuk 12.1 % 0.0-11 <td> 01/21/2019 [facility] er ocytes [Pure .0 % 02:15</td><td> [facility] number Monocytes. Health Care fraction] in </td><td><frankatHomestars Blood by raph Automated styleCode="Bold count "> 12.1 H </paragraph>
(0.0-11.0) % </td> Basophils+Eosi 2.5 % 0.0-5. <td> 01/21/2019 [facility] er nophils+Monocy 0 % 02:15</td><td> [facility] marlen [#/volume] Eosinophils Health Care in Blood by </td><td> Corporation Automated count 2.5
(0.0-5.0) % </td> Anisocytosis Slight <td> 01/21/2019 [place] [Presence] in 02:15</td><td> [facility] Blood by Light Anisocytosis Health Care microscopy </td><td> Corporation Slight
</td> Neutrophils 75.3 % 34.0-7 <td> 01/21/2019 [place] [#] in Body 6.0 % 02:15</td><td> [facility] fluid by Neutrophils Health Care Manual count </td><td> Corporation 75.3
(34.0-76.0) % </td> Immature 0.9 % 0.0-0. <td> 01/21/2019 [place] granulocytes/1 5 % 02:15</td><td> [facility] 00 leukocytes IG% Health Care in Blood by </td><td><Nexgence Automated raph count styleCode="Bold "> 0.9 H </paragraph>
(0.0-0.5) %
The IG fraction represents metamyelocytes, myelocytes and/or
promyelocytes and is only reported as part of the automated
differential when found at a percentage of less than 6.
If higher than 6%, a manual differential will be performed.

(0.0-0.5) % </td> Metamyelocytes 2.0 % % <td> 01/15/2019 [facility] er [#/volume] in 02:39</td><td> [facility] Blood by Metamyelocytes Health Care Manual count </td><td><Nexgence raph styleCode="Bold "> 2.0 * AB </paragraph>
% </td> Poikilocytosis SLIGHT <td> 01/18/2019 [facility] er [Presence] in 06:48</td><td> [facility] Blood by Light Poikilocytosis Health Car e microscopy </td><td> [employer] SLIGHT
</td> Polychromasia Slight <td> 01/19/2019 [facility] r [Presence] in 01:13</td><td> [facility] Blood by Light Polychromasia Health Care microscopy </td><td> [employer] Slight
</td> Microcytes Slight <td> 01/21/2019 [place] [Presence] in 02:15</td><td> [facility] Blood by Light Microcytic Health Care microscopy </td><td> [employer] Slight
</td> Hypochromia Slight <td> 01/15/2019 [place] [Presence] in 02:39</td><td> [facility] Blood by Light Hypochromia Health Care microscopy </td><td> [employer] Slight
</td> Glucose 143 mg/dL 70-105 <td> 01/21/2019 [place] [Mass/volume] mg/dL 02:15</td><td> [place] in Blood Glucose-Serum Health Care </td><td><Nexgence raph styleCode="Bold "> 143 H </paragraph>
(70-105) mg/dL </td> Sodium 137 mEq/L 135-14 <td> 01/21/2019 [place] [Moles/volume] 5 02:15</td><td> [place] in Serum or mEq/L Sodium-Serum Health Care Plasma </td><td> [employer] 137
(135-145) mEq/L </td> Ovalocytes Few <td> 01/19/2019 [place] [Presence] in 01:13</td><td> [facility] Blood by Light Ovalocytes Health Care microscopy </td><td> [employer] Few
</td> Schistocytes Occasional <td> 01/19/2019 [facility] [Presence] in 01:13</td><td> [facility] Blood by Light Schistocytes Health Care microscopy </td><td> [employer] Occasional
</td> Carbon 22 mEq/L 22-30 <td> 01/21/2019 [place] dioxide, total mEq/L 02:15</td><td> County [Moles/volume] CO2 </td><td> Health Car e in Serum or Corporation Plasma 22
(22-30) mEq/L </td> Chloride 108 mEq/L 98-107 <td> 01/21/2019 [place] [Moles/volume] mEq/L 02:15</td><td> [place] in Serum or Chloride Health Care Plasma </td><td><Nexgence raph styleCode="Bold "> 108 H </paragraph>
(98-107) mEq/L </td> Potassium 4.1 mEq/L 3.5-5. <td> 01/21/2019 [place] [Moles/volume] 1 02:15</td><td> [place] in Serum or mEq/L Potassium-Serum Health Care Plasma </td><td> [employer] 4.1
(3.5-5.1) mEq/L </td> Aspartate 15 U/L 4-35 <td> 01/21/2019 [place] aminotransfera U/L 02:15</td><td> County se [Enzymatic AST (SGOT) Health Care activity/volum </td><td> Corporation e] in Serum or Plasma 15
(4-35) U/L </td> Alanine 7 U/L 6-55 <td> 01/21/2019 [place] aminotransfera U/L 02:15</td><td> County se [Enzymatic ALT (SGPT) Health Care activity/volum </td><td> Corporation e] in Serum or Plasma 7
(6-55) U/L </td> Creatinine 0.83 mg/dL 0.72-1 <td> 01/21/2019 [place] [Moles/volume] .25 02:15</td><td> [place] in Serum or mg/dL Creatinine. Health Care Plasma </td><td> [employer] 0.83
(0.72-1.25) mg/dL </td> Urea nitrogen 11 mg/dL 6-22 <td> [facility]dL 02:15</td><td> [place] in Blood BUN </td><td> Health Care [employer] 11
(6-22) mg/dL </td> Bilirubin.tota 0.2 mg/dL 0.2-1. <td> 01/21/2019 [facility] er l 3 02:15</td><td> [facility] [Mass/volume] mg/dL Bilirubin - Health Care in Blood [employer] </td><td> 0.2
(0.2-1.3) mg/dL </td> Calcium 8.4 mg/dL 8.6-10 <td> 01/21/2019 [place] [Mass/volume] .2 02:15</td><td> [place] in Blood mg/dL Calcium Health Care </td><td><Nexgence raph styleCode="Bold "> 8.4 L </paragraph>
(8.6-10.2) mg/dL </td> Albumin 2.6 g/dL 3.4-4. <td> 01/21/2019 [place] [Mass/volume] 8 g/dL 02:15</td><td> [place] in Serum or Albumin Health Care Plasma </td><td><Nexgence raph styleCode="Bold "> 2.6 L </paragraph>
(3.4-4.8) g/dL </td> Proteins - 5.8 g/dL 6.4-8. <td> 01/21/2019 [place] Total 3 g/dL 02:15</td><td> [facility] Proteins - Health Care [employer] </td><td><ICRTec raph styleCode="Bold "> 5.8 L </paragraph>
(6.4-8.3) g/dL </td> Lipemic index No Lipemia <td> 01/21/2019 [facility] er of Serum or 02:15</td><td> [facility] Plasma Lipemia Index Health Care </td><td> [employer] No Lipemia
</td> Globulin 3.2 gm/dL 2.9-4. <td> 01/21/2019 [place] [Mass/volume] 0 02:15</td><td> [place] in Serum gm/dL Globulin Health Care </td><td> Corporation 3.2
(2.9-4.0) gm/dL </td> Hemolysis No <td> 01/21/2019 [place] index of Serum Hemolysis 02:15</td><td> County or Plasma Hemolysis Index Health Care </td><td> Corporation No Hemolysis
</td> Anion gap in 7 mEq/L 7-13 <td> 01/21/2019 [place] Serum or mEq/L 02:15</td><td> [facility] Plasma Anion Gap Health Care </td><td> [employer] 7
(7-13) mEq/L </td> Prothrombin 10.7 secs 9.8-12 <td> 01/09/2019 [place] time (PT) .0 03:48</td><td> [facility] secs Prothrombin Health Care Time. [facility] </td><td> 10.7
(9.8-12.0) secs </td> Phosphate 2.6 mg/dL 2.3-4. <td> 01/21/2019 [place] [Mass/volume] 7 02:15</td><td> [facility] in Serum or mg/dL Inorganic Health Care Plasma Phosphorus [facility] </td><td> 2.6
(2.3-4.7) mg/dL </td> Icteric index Non Icteric <td> 01/21/2019 [facility] of Serum or 02:15</td><td> [facility] Plasma Icteric Index Health Care </td><td> [employer] Non Icteric
</td> aPTT panel - 25.6 secs 25.0-3 <td> 01/09/2019 [place] Platelet poor 2.0 03:48</td><td> [facility] plasma secs Partial [facility] Care Thromboplastin [facility] Time </td><td> 25.6
(25.0-32.0) secs </td> Triglyceride 146 mg/dL 30-200 <td> 01/14/2019 [place] [Mass/volume] mg/dL 15:30</td><td> [facility] in Serum or Triglyceride Health Care Plasma </td><td> [facility] 146
(30-200) mg/dL </td> Magnesium 1.8 mg/dL 1.6-2. <td> 01/21/2019 [place] [Mass/volume] 6 02:15</td><td> [facility] in Serum or mg/dL Magnesium Level Health Care Plasma </td><td> [facility] 1.8
(1.6-2.6) mg/dL </td> Glucose 135 mg/dL 70-105 <td> 01/21/2019 [place] [Mass/volume] mg/dL 11:42</td><td> [facility] in Capillary Glucose - Health Care blood by Finger Stick [employer] Glucometer </td><td><frank raph styleCode="Bold "> 135 H </paragraph>
(70-105) mg/dL </td> ID Date Data Source [id number] 01/17/2019 12:00:00 AM [facility] [id number] [facility] [employer] Name Value Range Interpretation Description Data Sup porting Code Source(s) Document(s ) Abdomen 1 (PACSIMAGE <td> 01/17/2019 [place] 00:00</td><td> [facility] ) Final Abdomen 1 View Health Care Result </td><td><Nexgence Name: иван MENA MRN: styleCode="Ital [id number] Sex: M ics">(PACSIMAGE : 1940 Location: M )</paragraph><b Admitting r/>
Physician: Final Result LILIANA RIVERA Requesting

Physician: Name: SANTHOSH MENA SHAHLA Christiansen Exam:
ABDOMEN 1 VW 01/17/2019 Sex: M 00:26
Clinical : 1940 indication:Smal Location: M l bowel
follow-through Admitting Comparison: Physician: Abdominal LILIANA RIVERA radiograph
01/16/2019 Requesting Technique: 2 Physician: supine views of SANTHOSH BARBOUR the abdomen are performed.

Findings: Exam: ABDOMEN 1 Evaluation is VW 01/17/2019 limited by 00:26 patient body

<br/ habitus. > Clinical There are loops indication:Smal of nondilated l bowel small and large follow-through bowel. No radiographic

evidence to Comparison: suggest Abdominal obstruction. radiograph Impression: 01/16/2019 Nonobstructive

bowel gas Technique: 2 pattern. supine views of Resident the abdomen are Radiologist: performed. Attending Radiologist:

Gail Findings: Vini MEZA

Finalizing Evaluation Radiologist: is limited by Gail Martini MD habitus. Transcribed

Date: There are 01/17/2019 loops of 14:58 nondilated Finalized Date: small and large 01/17/2019 bowel. No 14:59 radiographic
evidence to suggest obstruction.

Impression:

Nonobstructive bowel gas pattern.

Resident Radiologist:
Attending Radiologist: Gail Martini MD
Finalizing Radiologist: Gail Martini MD
Transcribed Date: 01/17/2019 14:58
Finalized Date: 01/17/2019 14:59

</td > Chest PA & (PACSIMAGE <td> 01/08/2019 [place] Lateral 02:39</td><td> [facility] Final Chest PA & Health Care Result [facility] Name: TRINA, </td><td>bev Christiansen MRN: raph [id number] Sex: M styleCode="Ital : ics">(PACSIMAGE 1940 Location: Admitting )</paragraph><b Physician: r/>
EMERGENCY Final Result SERVICE Requesting

Physician: Name: CHIP MENA Exam: CHEST
PA AND LATERAL 01/08/2019 Sex: M 02:48
Clinical : 1940 information: Location: Fever
Comparison: Admitting 12/18/2018 Physician: Technique: PA EMERGENCY and lateral SERVICE radiographs of
the chest. Requesting Findings: Physician: Low lung CHIP BETTS volumes. Enlarged

cardiac Exam: CHEST PA silhouette AND LATERAL accentuated by 01/08/2019 the poor 02:48 inspiration.

<br/ Lung brown > Clinical grossly clear. information: IMPRESSION: Fever Cardiomegaly.

Poor Comparison: inspiration. 12/18/2018 Resident

Radiologist: Technique: HAILY Chua and lateral Resident radiographs of Radiologistt the chest. Attending Radiologist:

Caryn Monae Findings: Finalizing

Radiologist: Low lung Caryn Monae volumes. MD Enlarged Transcribed cardiac Date: silhouette 01/08/2019 accentuated by 04:00
Finalized Date: the poor 01/08/2019 inspiration. 07:44 Lung brown grossly clear.

IMPRESSION: Cardiomegaly. Poor inspiration.

Resident Radiologist: José Chua MD Resident Radiologistt
Attending Radiologist: Caryn Monae MD
Finalizing Radiologist: Caryn Monae MD
Transcribed Date: 01/08/2019 04:00
Finalized Date: 01/08/2019 07:44

</td > Bladder US (PACSIMAGE <td> 01/20/2019 [place] 13:12</td><td> [facility] ) Final Bladder US Health Care Result </td><td>Tax Alli Name: иван MENA MRN: styleCode="Ital [id number] Sex: M ics">(PACSIMAGE : 1940 Location: )</paragraph><b Admitting r/>
Physician: Final Result LILIANA RIVERA Requesting

Physician: Name: SHANNON MENA
Exam: US BLADDER Sex: M 01/20/2019
13:30 : 1940 CLINICAL Location: INDICATION:
Assess post Admitting void residual. Physician: TECHNIQUE: LILIANA RIVERA Limited
ultrasound Requesting examination was Physician: Ros the bladder. ANNY Examination was

technically Exam: US limited as the BLADDER patient had 01/20/2019 voided just 13:30 prior to the

<br/ exam and > CLINICAL indicates that INDICATION: he does not Assess post need to void. void residual. COMPARISON: No prior

ultrasound TECHNIQUE: examination of Limited the bladder was ultrasound just a examination was [facility]. performed of FINDINGS: the The volume of
urine within bladder. the bladder is Examination was 33.3 mL. technically Bladder wall limited as the appears patient had thickened which
may be voided just artifactual prior to the secondary to exam and under indicates that distention. he does not Other
etiologies are need to void. not excluded. IMPRESSION:

Limited COMPARISON: No exam. prior Bladder volume ultrasound at the time of examination of imaging is 33.3 the bladder was mL. Resident
just Radiologist: a [facility] Attending [facility]. Radiologist:

Mikael Mckinley FINDINGS: The Finalizing volume of urine Radiologist: within the Mikael Mckinley bladder is 33.3 mL. Transcribed
Date: Bladder wall 01/20/2019 appears 16:02 thickened which Finalized Date: july be 01/20/2019 artifactual 16:04 secondary
to under distention. Other etiologies are not excluded.

IMPRESSION:

Limited exam.

Bladder volume at the time of imaging is 33.3 mL.

Resident Radiologist:
Attending Radiologist: Mikael Mckinley MD
Finalizing Radiologist: Mikael Mckinley MD
Transcribed Date: 01/20/2019 16:02
Finalized Date: 01/20/2019 16:04

</td > Chest (PACSIMAGE <td> 01/19/2019 [place] Portable 05:00</td><td> [facility] ) Final Chest Portable Health Care Result </td><td>[facility] Name: иван MENA MRN: styleCode="Ital [id number] Sex: M ics">(PACSIMAGE : 1940 Location: M )</paragraph><b Admitting r/>
Physician: Final Result LILIANA RIVERA Requesting

Physician: Name: ALONA MENARA SHAHLA Christiansen [facility]
Exam: CHEST PORTABLE Sex: M 01/19/2019
06:10 : 1940 HISTORY: Small Location: M bowel
obstruction. Admitting Shortness of Physician: breath LILIANA RIVERA PROCEDURE:
Portable AP Requesting radiograph Physician: IMPRESSION: [facility] and MONITORING DEVICES: None

LUNGS and Exam: CHEST PLEURA: Linear PORTABLE opacities at 01/19/2019 the left lung 06:10 base,

<br/ atelectasis > HISTORY: versus minor Small bowel scarring, obstruction. without change Shortness of since one day breath earlier HEART

and PROCEDURE: MEDIASTINUM: Portable AP Stable radiograph cardiovascular silhouette

IMPRESSION: Resident Radiologist:

Attending LIFE SUPPORT Radiologist: and MONITORING Keely DEVICES: None Fozia MEZA
Finalizing LUNGS and Radiologist: PLEURA: Linear Keely opacities at Fozia MEZA the left lung Transcribed base, Date: atelectasis 01/19/2019
09:17 versus minor Finalized Date: scarring, 01/19/2019 without change 09:18 since one day earlier
HEART and MEDIASTINUM: Stable cardiovascular silhouette

Resident Radiologist:
Attending Radiologist: Keely Marcelo MD
Finalizing Radiologist: Keely Marcelo MD
Transcribed Date: 01/19/2019 09:17
Finalized Date: 01/19/2019 09:18

</td > ID Date Data Source [id number] 01/09/2019 12:00:00 AM [facility] [id number] Corporation Name Value Range Interpretation Description Data Sup porting Code Source(s) Document(s ) Operative Operative <td> 01/09/2019 [place] Report Report </td><td> County NAME: RTINA, Operative Report Renard GALE MR#: </td><td>
< Corporati on [id number] ADMIT br/>

<b DATE: r/> 01/08/2019 Operative Report SURGERY DATE: 01/09/2019

DISCHARGE NAME: TRINA, DATE: SHAHLA SURGEON:
MR#: [id number] [id number] NUMBER:
ADMIT [id number] DATE: DATE OF 01/08/2019 PROCEDURE:
January 09 DATE: 201801/09/2019 ATTENDING
SURGEON: DISCHARGE DATE: Rebeca Guerrero MD
RESIDENTS: SURGEON: Nel
MD Ady BILLING NUMBER: and Jaswinder Ordoñez, [phone]

PREOPERATIVE DATE OF DIAGNOSIS: PROCEDURE: Small bowel January 09, 2019 obstruction.

POSTOPERATIVE ATTENDING DIAGNOSIS: SURGEON: Rebeca Guerrero MD obstruction.

PROCEDURES: RESIDENTS: Exploratory Ady Medellin MD and lysis of Jaswinder Ordoñez MD adhesions, repair of

serosal PREOPERATIVE tears. DIAGNOSIS: INDICATIONS Small bowel FOR PROCEDURE: obstruction. 78-year-old male with a

history of POSTOPERATIVE partial DIAGNOSIS: gastrectomy, Small bowel cholecystectom obstruction. y and inguinal hernia repair

as well as PROCEDURES: COPD on 3 Exploratory liters of laparotomy, nasal cannula lysis of at home, adhesions, hypertension, repair of diabetes, CHF, serosal Parkinson
disease, tears. coronary

artery disease INDICATIONS FOR status post PROCEDURE: stenting and 78-year-old male lower with a history extremity of partial cellulitis,
who presents gastrectomy, with 5-day cholecystectomy history of and inguinal obstipation hernia repair as and feculent well as COPD on vomiting. NG
tube was 3 liters of placed when he nasal cannula at was in the home, hospital. The hypertension, patient diabetes, CHF, failed to Parkinson resolve with
nonoperative disease, management and coronary artery was taken to disease status the post stenting operating and lower room. extremity DESCRIPTION OF
PROCEDURE: cellulitis, who The patient presents with was brought 5-day history of into the obstipation and operating room feculent and
positioned vomiting. NG supine on the tube was placed operating when he was in table. the hospital. General The patient endotracheal
anesthesia was failed to induced. The resolve with patient's nonoperative abdomen was management and shaved and was taken to the prepped with
ChloraPrep in operating the usual room. sterile

fashion. DESCRIPTION OF Timeout was PROCEDURE: The performed per patient was protocol. A brought into the midline operating room incision was
made with a and positioned #10 scalpel supine on the over his operating table. previous General midline scar. endotracheal The incision
was extended anesthesia was to slightly induced. The below where patient's the scar had abdomen was ended under shaved and his umbilicus prepped with to enter in
[place] ChloraPrep in territory. the usual Electrocautery sterile fashion. was used to Timeout was divide the performed per subcutaneous
tissue. The protocol. A peritoneum midline incision was entered. was made with a With the #10 scalpel over fingers his underneath the
fascia, previous midline electrocautery scar. The was used to incision was incise the extended to remainder of slightly below the fascia where along the
the length of the scar had ended incision. under his Upon entry umbilicus to into the enter in virgin peritoneum, territory. there was a
murky fluid Electrocautery that was was used to suctioned out. divide the There were subcutaneous extensive tissue. The adhesions on peritoneum the left side
of the was entered. abdomen, and With the fingers some adhesions underneath the in the right fascia, upper quadrant electrocautery as well. All was adhesions
used were lysed to incise the with a remainder of the combination of fascia along the Metzenbaum length of the scissors,
electrocautery incision. Upon and LigaSure. entry into the The bowel was peritoneum, ran from the there was a terminal ileum murky fluid that to ligament
of Treitz. was Serosal tears suctioned out. that were There were inherent to extensive the procedure adhesions on the were left side of the identified and
repaired with abdomen, and 3-0 silk and some adhesions Lembert in the right sutures. No upper quadrant enterotomies as well. All were created
during the adhesions were procedure. lysed with a The bowel from combination of the mid Metzenbaum jejunum to scissors, about 10 cm
away from the electrocautery ligament of and LigaSure. Trietz The bowel was appeared ran from the congested terminal ileum with to fecalization
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 Serosal obstruction; tears that were however, it inherent to the appeared procedure viable and was
deemed to not were identified require and repaired resection. At with 3-0 silk the and Lembert conclusion of sutures. No the case, the
peritoneum was enterotomies irrigated with were created normal saline. during the The incision procedure. The was closed bowel from the with running mid continuous #1
looped Maxon jejunum to about sutures, the 10 cm away from skin was the ligament of closed with Trietz appeared skin staplers congested and covered
with a Prevena with VAC. Debrief fecalization of was performed small bowel due per protocol. to chronic The patient obstruction; remained however, it intubated at
the appeared viable conclusion of and was deemed the surgery to not require and was resection. At transferred to the the ICU for
further conclusion of management. the case, the Dr. Guerrero was peritoneum was present for irrigated with duration of normal saline. the case.
The incision DICT: was closed with Nel Garsia M.D. continuous #1 looped Maxon 11 54 AM sutures,
the 12:55:40/HN skin was closed with skin staplers and covered with a ======= END OF Prevena VAC. DOCUMENT /
CHANGE LOG Debrief was FOLLOWS performed per protocol. The === patient remained Elec. Signed intubated at the By ANNA
REBECA #[id number] conclusion on 01/13/2019 of the surgery 11:29 ET and was NATIVIDADDAVID, transferred to NEL the ICU for #[id number] on further 01/12/2019
00:[address] Guerrero was present for duration of the case.

< br/>

DICT: Nel Garsia M.D.
11 54 AM
/HN

===== END OF DOCUMENT / CHANGE LOG FOLLOWS =

Elec. Signed By
REBECA GUERRERO #[id number]
on 01/13/2019 11:29 ET
NEL GARSIA #[id number]
on 01/12/2019 00:26 ET

</td> ID Date Data Source [id number] 01/08/2019 12:18:00 AM EST [facility] [id number] Corporation Name Value Range Interpretation Description Data Source(s ) Supporting Code Document(s ) ABO-Rh Type O POS <td> [place] 01/08/2019 [facility] 00:18</td><td> Care ABO-Rh Type Corporation </td><td> O POS
</td> Antibody NEG <td> [place] Screen 01/08/2019 [facility] 00:18</td><td> Care Antibody Corporation Screen </td><td> NEG
</td> Specimen 01/12/20 <td> [place] expiration 19 23:59 01/08/2019 [facility] date of Blood 00:18</td><td> Care Specimen Corporation Expiration Date </td><td> 01/11/2019 23:59
</td> ID Date Data Source [id number] 12/29/2018 05:43:00 AM EDT [facility] [id number] Corporation Name Value Range Interpretation Description Data Sup porting Code Source(s) Document(s ) Leukocytes 7.2 k/mm3 4.8-10 <td> 12/29/2018 [place] [#/volume] in .8 05:43</td><td> [facility] Blood by k/mm3 WBC </td><td> Health Care Automated count Corporation 7.2
(4.8-10.8) k/mm3 </td> Erythrocytes 5.34 m/mm3 4.70-6 <td> 12/29/2018 [facility] [#/volume] in .10 05:43</td><td> [facility] Blood m/mm3 RBC </td><td> Health Care Corporation 5.34
(4.70-6.10) m/mm3 </td> Hematocrit 39.8 % 40.8-4 <td> 12/29/2018 [place] [Volume 6.9 % 05:43</td><td> [facility] Fraction] of HCT Health Care Blood by </td><td><Nex[employer] Automated count raph styleCode="Bold "> 39.8 L </paragraph>
(40.8-46.9) % </td> Hemoglobin 11.3 g/dL 14.0-1 <td> 12/29/2018 [place] [Mass/volume] 8.0 05:43</td><td> [facility] in Blood g/dL [facility] </td><td><Nexgence raph styleCode="Bold "> 11.3 L </paragraph>
(14.0-18.0) g/dL </td> Erythrocyte 74.5 fL 80.0-9 <td> 12/29/2018 [place] mean 4.0 fL 05:43</td><td> [facility] corpuscular [facility] volume [Entitic </td><td><frank Corporat ion volume] by raph Automated count styleCode="Bold "> 74.5 L </paragraph>
(80.0-94.0) fL </td> Erythrocyte 21.2 pg 27.0-3 <td> 12/29/2018 [place] mean 1.5 pg 05:43</td><td> [facility] corpuscular [facility] Health Care hemoglobin </td><td><frank Corporation [Entitic mass] raph by Automated styleCode="Bold count "> 21.2 L </paragraph>
(27.0-31.5) pg </td> Erythrocyte 18.6 % 11.5-1 <td> 12/29/2018 [place] distribution 4.5 % 05:43</td><td> [facility] width [Entitic RDW Health Care volume] by </td><td><frank [employer] Automated count raph styleCode="Bold "> 18.6 H </paragraph>
(11.5-14.5) % </td> Platelet mean 10.7 fL 9.8-12 <td> 12/29/2018 [facility] r volume [Entitic .8 fL 05:43</td><td> County volume] in MPV </td><td> Health Care Blood by Corporation Automated count 10.7
(9.8-12.8) fL </td> Erythrocyte 28.4 % 32.0-3 <td> 12/29/2018 [place] mean 6.0 % 05:43</td><td> [facility] corpuscular [facility] Health Care hemoglobin </td><td><frank Corporation concentration raph [Mass/volume] styleCode="Bold in Blood from "> Fetus by 28.4 Automated count L </paragraph>
(32.0-36.0) % </td> Platelets 273 k/mm3 160-41 <td> 12/29/2018 [place] [#/volume] in 0 05:43</td><td> [facility] Blood by k/mm3 Platelet Count Health Care Automated count </td><td> Corporation 273
(160-410) k/mm3 </td> Sodium 138 mEq/L 135-14 <td> 12/29/2018 [place] [Moles/volume] 5 05:43</td><td> County in Serum or mEq/L Sodium-Serum Health Care Plasma </td><td> [employer] 138
(135-145) mEq/L </td> Glucose 144 mg/dL 70-105 <td> 12/29/2018 [place] [Mass/volume] mg/dL 05:43</td><td> [facility] in Blood Glucose-Serum Health Care </td><td><Nexgence raph styleCode="Bold "> 144 H </paragraph>
(70-105) mg/dL </td> Carbon dioxide, 28 mEq/L 22-30 <td> 12/29/[facility] total mEq/L 05:43</td><td> County [Moles/volume] CO2 </td><td> Health Car e in Serum or Corporation Plasma 28
(22-30) mEq/L </td> Chloride 101 mEq/L 98-107 <td> 12/29/2018 [place] [Moles/volume] mEq/L 05:43</td><td> [facility] in Serum or Chloride Health Care Plasma </td><td> [employer] 101
(98-107) mEq/L </td> Potassium 3.9 mEq/L 3.5-5. <td> 12/29/2018 [place] [Moles/volume] 1 05:43</td><td> [facility] in Serum or mEq/L Potassium-Serum Health Care Plasma </td><td> [employer] 3.9
(3.5-5.1) mEq/L </td> Urea nitrogen 26 mg/dL 6-22 <td> 12/29/2018 [facility] [Mass/volume] mg/dL 05:43</td><td> [facility] in Blood BUN Health Care </td><td><Nexgence raph styleCode="Bold "> 26 H </paragraph>
(6-22) mg/dL </td> Alanine 12 U/L 6-55 <td> 12/26/2018 [place] aminotransferas U/L 06:31</td><td> County e [Enzymatic ALT (SGPT) Health Care activity/volume </td><td> Corporation ] in Serum or Plasma 12
(6-55) U/L </td> Creatinine 1.25 mg/dL 0.72-1 <td> 12/29/2018 [place] [Moles/volume] .25 05:43</td><td> County in Serum or mg/dL Creatinine. Health Care Plasma </td><td> [employer] 1.25
(0.72-1.25) mg/dL </td> Aspartate 12 U/L 4-35 <td> 12/26/2018 [place] aminotransferas U/L 06:31</td><td> County e [Enzymatic AST (SGOT) Health Care activity/volume </td><td> [employer] ] in Serum or Plasma 12
(4-35) U/L </td> Bilirubin.total 0.2 mg/dL 0.2-1. <td> 12/26/2018 [facility] [Mass/volume] 3 06:31</td><td> [place] in Blood mg/dL Bilirubin - Health Care Total Corporation </td><td> 0.2
(0.2-1.3) mg/dL </td> Albumin 3.3 g/dL 3.4-4. <td> 12/26/2018 [place] [Mass/volume] 8 g/dL 06:31</td><td> [facility] in Serum or Albumin Health Care Plasma </td><td><frank Corporation raph styleCode="Bold "> 3.3 L </paragraph>
(3.4-4.8) g/dL </td> Calcium 8.7 mg/dL 8.6-10 <td> 12/29/2018 [place] [Mass/volume] .2 05:43</td><td> [place] in Blood mg/dL Calcium Health Care </td><td> Corporation 8.7
(8.6-10.2) mg/dL </td> Proteins - 6.0 g/dL 6.4-8. <td> 12/26/2018 [place] Total 3 g/dL 06:31</td><td> [facility] Proteins - Health Care [employer] Corporation </td><td><frank raph styleCode="Bold "> 6.0 L </paragraph>
(6.4-8.3) g/dL </td> Globulin 2.7 gm/dL 2.9-4. <td> 12/26/2018 [place] [Mass/volume] 0 06:31</td><td> [facility] in Serum gm/dL Globulin Health Care </td><td><frank Corporation raph styleCode="Bold "> 2.7 L </paragraph>
(2.9-4.0) gm/dL </td> Hemolysis index No <td> 12/29/2018 [facility] of Serum or Hemolysis 05:43</td><td> [facility] Plasma Hemolysis Index [facility] </td><td> [employer] No Hemolysis
</td> Anion gap in 9 mEq/L 7-13 <td> 12/29/2018 [place] Serum or Plasma mEq/L 05:43</td><td> [facility] Anion Gap [facility] </td><td> [employer] 9
(7-13) mEq/L </td> Lipemic index No Lipemia <td> 12/29/2018 [facility] er of Serum or 05:43</td><td> [facility] Plasma Lipemia Index [facility] </td><td> [employer] No Lipemia
</td> Icteric index Not <td> 12/29/2018 [facility] r of Serum or Icteric 05:43</td><td> [facility] Plasma Icteric Index [facility] </td><td> [employer] Not Icteric
</td> aPTT panel - 25.2 secs 25.0-3 <td> 12/26/2018 [place] Platelet poor 2.0 06:31</td><td> [facility] plasma secs Partial [facility] Thromboplastin [facility] Time </td><td> 25.2
(25.0-32.0) secs </td> Prothrombin 10.4 secs 9.8-12 <td> 12/26/2018 [place] time (PT) .0 06:31</td><td> County secs Prothrombin Health Care Time. Corporation </td><td> 10.4
(9.8-12.0) secs </td> Protein Negative <td> 12/25/2018 [place] [Presence] in 18:00</td><td> [facility] Urine by Protein Health Care Automated test [employer] Corporation strip </td><td> Negative
(NEGATIVE) </td> Specific 1.011 {} 1.000- <td> 12/25/2018 [place] gravity of 1.035 18:00</td><td> [facility] Urine by Test Specific Health Care strip [place] Corporation </td><td> 1.011
(1.000-1.035) </td> Appearance of Clear <td> 12/25/2018 [facility] r Urine 18:00</td><td> [facility] Appearance Health Care </td><td> Corporation Clear
(CLEAR) </td> Urobilinogen 0.2 mg/dL 0.0-2. <td> 12/25/2018 [place] [Presence] in 0 18:00</td><td> [facility] Urine by mg/dL Urobilinogen Health Care Automated test </td><td> Corporation strip 0.2
(0.0-2.0) mg/dL </td> Nitrite Negative <td> 12/25/2018 [place] [Presence] in 18:00</td><td> [facility] Urine by Test Nitrites Health Care strip </td><td> Corporation Negative
(NEGATIVE) </td> Leukocyte 1+ <td> 12/25/2018 [place] esterase 18:00</td><td> County [Presence] in Leukocytes Health Care Urine by Test Esterase Corporation strip </td><td><frank raph styleCode="Bold "> 1+ * AB </paragraph>
(NEGATIVE) </td> Glucose Negative <td> 12/25/2018 [place] [Presence] in 18:00</td><td> [facility] Urine by Test Glucose_ Health Care strip </td><td> Corporation Negative
(NEGATIVE) </td> Leukocytes 4 /HPF 0-5 <td> 12/25/2018 [place] [Presence] in /HPF 18:00</td><td> [facility] Urine by WBC </td><td> Health Care Automated Corporation 4
(0-5) /HPF </td> Bacteria NONE SEEN <td> 12/25/2018 [place] [#/area] in 18:00</td><td> [facility] Urine sediment Bacteria Health Care by Microscopy </td><td> [employer] high power field NONE SEEN
(NONE) /HPF </td> Erythrocytes 1 /HPF 0-2 <td> 12/25/2018 [place] [#/area] in /HPF 18:00</td><td> [facility] Urine sediment RBC </td><td> Health Car e by Automated [employer] count 1
(0-2) /HPF </td> Epithelial RARE <td> 12/25/2018 [place] cells [#/area] <= FEW 18:00</td><td> [facility] in Urine Epithelial Health Care sediment by [employer] Automated count </td><td> RARE
/LPF
<= FEW

/LPF </td> Glucose 160 mg/dL 70-105 <td> 01/02/2019 [place] [Mass/volume] mg/dL 11:24</td><td> [facility] in Capillary Glucose - Health Care blood by Finger [employer] Glucometer </td><td><frank raph styleCode="Bold "> 160 H </paragraph>
(70-105) mg/dL </td> Mucous RARE <td> 12/25/2018 [place] <= FEW 18:00</td><td> [facility] Mucous Health Care </td><td> Corporation RARE
/LPF
<= FEW

/LPF </td> ID Date Data Source [id number] 12/25/2018 12:00:00 AM EDT [facility] [id number] Corporation Name Value Range Interpretation Description Data Sup porting Code Source(s) Document(s ) Glucose [place] <td> 12/25/2018 [place] [[facility] </td><td> [facility]] in DISCHARGE Discharge Health Care Capillary SUMMARY Summary Carmine blood by NAME: TRINA </td><td>
< Glucometer SHAHLA br/>

< MR#: [id number] br/>

< ADMIT DATE: br/> 12/20/2018 [facility] CENTER SUMMARY
COMPLETION DISCHARGE DATE: SUMMARY 12/25/2018
BILLING NAME: TRINA NUMBER: SHAHLA [id number]
[id number] MR#: [id number] Attending
Physician:[id number] ADMIT DATE: 53 NAV CARMONA 12/20/2018 [facility] Rehab to
[facility] SUMMARY [id number] COMPLETION Written and DATE: Reviewed 12/25/2018 by:[id number]
NAV CARMONA BILLING NUMBER: REASON FOR [id number] HOSPITALIZATIO
N: [id number] Dizziness,
UTI, Pneumonia Attending DISCHARGE Physician:[id number] SUMMARY 3 NAV CARMONA DEPARTMENT OF
MEDICINE, [facility] Rehab to [facility],
[place], [place] [id number] I. General
Information Written and Name and Title Reviewed of person by:[id number] ankita CARMONA the NAV summary: Nav
Ila II. REASON FOR Diagnosis HOSPITALIZATION Primary : Diagnosis:
UTI Dizziness, UTI, Secondary Pneumonia Diagnoses:
Pneumonia DISCHARGE Procedures: SUMMARY CT Chest,
Head, Echo DEPARTMENT OF III. Hospital MEDICINE, Course Chief [facility], Dizziness/Fall [place], [place] s Reason for admission:

Falls I. General Hospital Information course:
Mr. Mena is a Name and Title 78 y/o M with of person hx of COPD on preparing the 3L Home O2, summary: Nav Hypertension, Ila IDDM,

Diastolic II. Diagnosis Heart Fialure,
CAD s.p PCI, Primary parkinsons, Diagnosis: UTI Chronic LE edema/Venous
stasis, who Secondary presents with Diagnoses: recurrent Pneumonia falls.
Recurrent Procedures: CT falls: Chest, Head, Differential Echo likely due to

underlying III. Hospital infection as Course well as
Orthostatic Chief Complaint Hypotension. Dizziness/Falls Patient also noted to be on
many Reason for medications admission: which may Falls contribute to
patient s Hospital condition. course: Patient had

CT head which Mr. Mena is was a 78 y/o M with unremarkable. hx of COPD on Patient s 3L Home O2, Lasix was Hypertension, reduced to
80mg ONCE a IDDM, day at this Diastolic Heart time. Please Octavio CAD monitor his s.p PCI, fluid status parkinsons, and adjust Chronic LE dose as
tolerated. In edema/Venous addition, stasis, who his Losartan presents with was decreased recurrent from 50mg to falls. 25mg at this

time. Patient Recurrent had an Echo falls: completed on Differential this admission likely due to which was underlying unchanged. Can infection as consider
reducing Imdur well as if patient Orthostatic continues to Hypotension. be Patient also orthostatic. noted to be on many UTI/Pneumonia:
Patient was medications noted to have which may UTI as well as contribute to Pneumonia on patient s CT scan. condition. Patient needs Patient had to continue [address] head which ANTIBIOTICS. was Patient unremarkable. should
continue Patient s Levofloxacin. Lasix was Please reduced to 80mg complete taper ONCE a day at of steroids at this time. this time Please Abnormal CT
chest: patient monitor his was noted to fluid status have Mild and adjust dose pulmonary as tolerated. fibrotic In addition, changes.
Mucous plug his Losartan with was decreased surrounding from 50mg to tree-in-bud 25mg at this opacities time. Patient within the had right middle
an lobe. . He Echo completed will need a on this follow up CT admission which Chest in 6-8 was unchanged. weeks and Can consider follow up with
pulmonology. reducing CAD s/p Imdur if PCI: Patient patient was continued continues to be on Aspirin, orthostatic. Plavix, metoprolol,

ARB, at this UTI/Pneumonia: time. Patient was IDDM: Patient noted to have was continued UTI as well as on his home Pneumonia on dose of
Lantus/Lispro CT scan. at this Patient needs time. His to continue 4 blood sugars MORE DAYS OF have been well ANTIBIOTICS. controlled. Patient BPH
Patient was should continue continue on Levofloxacin. his tamsulosin Please complete and taper of finasteride. steroids at Chronic
Neck/back this time pain: Patient was continued

on Cymbalta Abnormal CT and chest: patient gabapentin at was noted to this time. have Mild Depression:
patient was pulmonary continued on fibrotic Bupropion and changes. Mucous mirtazapine. plug with COPD: surrounding Please tree-in-bud complete
Prednisone opacities taper. within the Continue Nebs. right middle Patient at lobe. . He will baseline O2 need a follow with 3L at up CT this time.
IV. Chest in 6-8 Physical Exam weeks and and mental follow up with status : AAO x pulmonology. 3 V. Code status:

Full CAD s/p PCI: Patient was Information To continued on Contact [facility] Aspirin, [facility] Plavix, metoprolol, Medical
Records (303) ARB, at this [phone] time. Medical

Attendings IDDM: Patient Office ([phone]) was continued [phone] on his home Exam: CT dose of THORAX C- Lantus/Lispro 12/19/2018 at this 14:05
CLINICAL time. His blood INDICATION: sugars have COPD been well exacerbation, controlled. rule out pneumonia

TECHNIQUE: BPH Noncontrast CT
of the chest Patient was was performed. continue on his Images are tamsulosin and reformatted in finasteride. the coronal and sagittal

planes. Chronic Up-to-date CT Neck/back pain: equipment Patient was using continued on Automatic Cymbalta and Exposure
Control, dose gabapentin at modulation, this time. and iterative reconstruction

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 continued on The total Bupropion and study DLP is mirtazapine. approximately 823 mGy-cm.

COPD: Please COMPARISON: CT complete angiogram of Prednisone the chest taper. Continue abdomen and Nebs. Patient pelvis dated at 04/25/2018.
INTERPRETATIO baseline O2 N: TUBES with 3L at this AND LINES: time. None.

<br/ AIRWAYS, > IV. LUNGS, and Physical Exam PLEURA: Small and mental amount of status : AAO x mucus within 3 the upper

thoracic V. Code trachea. status: Full Emphysema. Diffuse mosaic

attenuation

throughout the Information To lungs with Contact [facility] multiple
tree-in-bud [facility] opacities throughout
the left upper Medical lobe. There is Records ([phone]) focal airspace [phone] disease within
the left Medical lower lobe Attendings consistent Office ([phone]) with [phone] developing
left lower Exam: CT THORAX lobe C- 12/19/2018 pneumonia. 14:05 Trace left

<br/ pleural > CLINICAL effusion with INDICATION: associated COPD atelectasis. exacerbation, Mild rule out pulmonary pneumonia fibrotic

changes. TECHNIQUE: Mucous plug Noncontrast CT with of the chest surrounding was performed. tree-in-bud Images opacities
are within the reformatted in right middle the coronal and lobe. sagittal MEDIASTINUM: planes. There are
mildly Up-to-date CT enlarged equipment using mediastinal Automatic lymph nodes, Exposure with Control, dose persistent
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
1.6 cm in was employed. short axis, is
unchanged from The total the prior study DLP is examination. approximately Unchanged, 823 mGy-cm. prominent bilateral

hilar lymph COMPARISON: nodes CT angiogram of measuring up the chest to 1.2 cm in abdomen and short axis. pelvis dated These may be
reactive in 04/25/2018. nature. There are no

enlarged INTERPRETATION: axillary lymph nodes The

visualized TUBES AND portion of the LINES: None. thyroid gland is

unremarkable. AIRWAYS, LUNGS, HEART AND and PLEURA: VESSELS: The Small amount of heart is mucus within normal in the size. There
upper are aortic thoracic and coronary trachea. artery Emphysema. calcifications Diffuse mosaic . The thoracic attenuation aorta has a
normal throughout the caliber. There lungs with is no multiple pericardial tree-in-bud effusion. opacities UPPER ABDOMEN: throughout The anterior
abdominal wall the left upper is not lobe. There is included focal airspace within the disease within [id number]. the Post
left cholecystectom lower lobe y. Surgical consistent with material is developing left seen within lower lobe the josiah pneumonia. hepatis. Fatty
atrophy of the Trace left pancreas. pleural Distal effusion with gastrectomy associated with atelectasis. gastrojejunost Mild raul. Haziness
of the pulmonary mesentery, fibrotic stable from changes. Mucous the prior plug with examination. surrounding BONES AND tree-in-bud SOFT TISSUES:
Revisualized opacities hemangiomas of within the the spine. right middle The soft lobe. tissues are

unremarkable. MEDIASTINUM: There are IMPRESSION: mildly enlarged 1. Left mediastinal lower lobe lymph nodes, pneumonia.
Additional with foci of persistent suspected right infection in paratracheal the right lymph node middle lobe enlargement and lingula. measuring Follow-up to
resolution approximately is recommended 1.6 cm in short given the axis, is nodular unchanged from appearance of the prior some of the
opacities.. examination. 2. Air Unchanged, trapping. prominent Echo bilateral hilar Interpretation lymph nodes Summary
The left measuring up ventricle is to 1.2 cm in normal in short axis. size. These may be There is reactive in normal left
ventricular nature. There wall are no enlarged thickness. axillary lymph Left nodes The ventricular visualized ejection
fraction is portion of the 60%. thyroid gland There is is hypokinesis of unremarkable. the basal inferior wall.

There is HEART AND hypokinesis of VESSELS: The the mid heart is normal inferior wall in size. There . There are aortic is hypokinesis
of the basal and coronary inferoseptal artery wall. calcifications. 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
consistent normal with abnormal caliber. There LV is no relaxation. pericardial The right effusion. ventricular

systolic UPPER function is ABDOMEN: The normal. anterior Indexed left abdominal wall atrial volume is not included is normal. within There is no
the aortic [id number]. stenosis. Post Trivial mitral cholecystectomy valve . Surgical regurgitation. material is Trivial
tricuspid seen within valve the josiah regurgitation. hepatis. Fatty The aortic atrophy of the root is normal pancreas. in size.
There was Distal insufficient gastrectomy tricuspid with regurgitation gastrojejunosto detected to my. Haziness of calculate the mesentery, pulmonary
artery stable from systolic the prior pressure. examination. The inferior vena cava is

normal in size BONES AND SOFT and collapses TISSUES: normally Revisualized with hemangiomas of respiration, the spine. suggestive of
normal right The soft atrial tissues are pressure (3 unremarkable. mmHg). There is no

pericardial IMPRESSION: effusion. Compared with

the previous 1. Left lower echo performed lobe pneumonia. on 03.22.2018, Additional foci there is no of suspected significant infection change.
in the right ======== END middle lobe and OF DOCUMENT / lingula. CHANGE LOG Follow-up to FOLLOWS resolution
=== Elec. is recommended Signed By given the NAV CARMONA #[id number] on appearance of 01/01/2019 some of the 11:45 ET opacities..
2. Air trapping.

Echo
Interpretation Summary

The left ventricle is normal in size.

There is normal left ventricular wall thickness.

Left ventricular ejection fraction is 60%.

There is hypokinesis of the basal inferior wall.

There is hypokinesis of the mid inferior wall .

There is hypokinesis of the basal inferoseptal wall.

<br/ > Grade I diastolic dysfunction, consistent with abnormal LV
relaxation.

The right ventricular systolic function is normal.

Indexed left atrial volume is normal.

There is no aortic stenosis.

Trivial mitral valve regurgitation.

Trivial tricuspid valve regurgitation.
The aortic root is normal in size.
There was insufficient tricuspid regurgitation detected to
calculate
pulmonary artery systolic pressure.
The inferior vena cava is normal in size and collapses normally
with
respiration, suggestive of normal right atrial pressure (3
mmHg).
There is no pericardial effusion.
Compared with the previous echo performed on 03.22.2018, there
is no
significant change.

====== END OF DOCUMENT / CHANGE LOG FOLLOWS ==

Elec. Signed By
NAV CARMONA #[id number]
on 01/01/2019 11:45 ET

</td> ID Date Data Source [id number]- 12/24/2018 06:54:00 AM EDT [facility] [id number] Corporation Name Value Range Interpretation Description Data Sup porting Code Source(s) Document(s ) Leukocytes 8.1 k/mm3 4.8-10 <td> 12/24/2018 [facility] [#/volume] in .8 06:54</td><td> [facility] Blood by k/mm3 WBC </td><td> Health Care Automated count Corporation 8.1
(4.8-10.8) k/mm3 </td> Erythrocytes 5.35 m/mm3 4.70-6 <td> 12/24/2018 [facility] r [#/volume] in .10 06:54</td><td> [facility] Blood m/mm3 RBC </td><td> [employer] [facility] [employer] 5.35
(4.70-6.10) m/mm3 </td> Hemoglobin 11.2 g/dL 14.0-1 <td> 12/24/2018 [facility] [Mass/volume] 8.0 06:54</td><td> [facility] in Blood g/dL [facility] </td><td><[employer] raph styleCode="Bold "> 11.2 L </paragraph>
(14.0-18.0) g/dL </td> Erythrocyte 20.9 pg 27.0-3 <td> 12/24/2018 [facility] mean 1.5 pg 06:54</td><td> [facility] corpuscular [facility] hemoglobin </td><td><[facility]gence [Entitic mass] raph by Automated styleCode="Bold count "> 20.9 L </paragraph>
(27.0-31.5) pg </td> Erythrocyte 18.5 % 11.5-1 <td> 12/24/2018 [facility] distribution 4.5 % 06:54</td><td> [facility] width [Entitic [facility] volume] by </td><td><[employer] Automated count raph styleCode="Bold "> 18.5 H </paragraph>
(11.5-14.5) % </td> Platelet mean 9.8 fL 9.8-12 <td> 12/24/2018 [facility] r volume [Entitic .8 fL 06:54</td><td> County volume] in MPV </td><td> Health Care Blood by Corporation Automated count 9.8
(9.8-12.8) fL </td> Erythrocyte 75.3 fL 80.0-9 <td> 12/24/2018 [facility] mean 4.0 fL 06:54</td><td> [facility] corpuscular [facility] volume [Entitic </td><td><frank Corporat ion volume] by raph Automated count styleCode="Bold "> 75.3 L </paragraph>
(80.0-94.0) fL </td> Hematocrit 40.3 % 40.8-4 <td> 12/24/2018 [facility] [Volume 6.9 % 06:54</td><td> [facility] Fraction] of [facility] Blood by </td><td><[employer] Automated count raph styleCode="Bold "> 40.3 L </paragraph>
(40.8-46.9) % </td> Erythrocyte 27.8 % 32.0-3 <td> 12/24/2018 [facility] mean 6.0 % 06:54</td><td> [facility] corpuscular [facility] hemoglobin </td><td><Nexgence concentration raph [Mass/volume] styleCode="Bold in Blood from "> Fetus by 27.8 Automated count L </paragraph>
(32.0-36.0) % </td> Monocytes/Leuko 14.1 % 0.0-11 <td> 12/24/2018 [facility] cytes [Pure .0 % 06:54</td><td> County number Monocytes. Health Care fraction] in </td><td><[employer]exgence Blood by raph Automated count styleCode="Bold "> 14.1 H </paragraph>
(0.0-11.0) % </td> Basophils 0.4 % 0.0-2. <td> 12/24/2018 [facility] [#/volume] in 0 % 06:54</td><td> [facility] Blood by Basophils [facility] Automated count </td><td> [facility] 0.4
(0.0-2.0) % </td> Lymphocytes 17.6 % 16.0-5 <td> 12/24/2018 [facility] [#/volume] in 0.0 % 06:54</td><td> [facility] Blood by Lymphocytes [facility] Automated count </td><td> Corporation 17.6
(16.0-50.0) % </td> Neutrophils [#] 65.6 % 34.0-7 <td> 12/24/2018 [facility] in Body fluid 6.0 % 06:54</td><td> [facility] by Manual count Neutrophils [facility] </td><td> [facility] 65.6
(34.0-76.0) % </td> Platelets 296 k/mm3 160-41 <td> 12/24/2018 [facility] [#/volume] in 0 06:54</td><td> [facility] Blood by k/mm3 Platelet Count [facility] Automated count </td><td> [facility] 296
(160-410) k/mm3 </td> Immature 0.4 % 0.0-0. <td> 12/24/2018 [facility] granulocytes/10 5 % 06:54</td><td> [facility] 0 leukocytes in IG% </td><td> [facility] Blood by [facility] Automated count 0.4
(0.0-0.5) %
The IG fraction represents metamyelocytes, myelocytes and/or
promyelocytes and is only reported as part of the automated
differential when found at a percentage of less than 6.
If higher than 6%, a manual differential will be performed.

(0.0-0.5) % </td> Basophils+Eosin 1.9 % 0.0-5. <td> 12/24/2018 [facility] ophils+Monocyte 0 % 06:54</td><td> [facility] s [#/volume] in Eosinophils [facility] Blood by </td><td> [facility] Automated count 1.9
(0.0-5.0) % </td> Ovalocytes Moderate <td> 12/24/2018 [facility] [Presence] in 06:54</td><td> [facility] Blood by Light Ovalocytes Health Care microscopy </td><td> [facility] Moderate
</td> Glucose 208 mg/dL 70-105 <td> 12/24/2018 [facility] [Mass/volume] mg/dL 06:54</td><td> [facility] in Blood Glucose-Serum Health Care </td><td><frank Corporation raph styleCode="Bold "> 208 H </paragraph>
(70-105) mg/dL </td> Sodium 137 mEq/L 135-14 <td> 12/24/2018 [facility] [Moles/volume] 5 06:54</td><td> [facility] in Serum or mEq/L Sodium-Serum Health [facility] Plasma </td><td> [facility] 137
(135-145) mEq/L </td> Anisocytosis Slight <td> 12/24/2018 [facility] [Presence] in 06:54</td><td> [facility] Blood by Light Anisocytosis Health Care microscopy </td><td> [facility] Slight
</td> Potassium 3.8 mEq/L 3.5-5. <td> 12/24/2018 [facility] [Moles/volume] 1 06:54</td><td> [facility] in Serum or mEq/L Potassium-Serum [facility] Plasma </td><td> [facility] 3.8
(3.5-5.1) mEq/L </td> Poikilocytosis Slight <td> 12/24/2018 [facility] er [Presence] in 06:54</td><td> [facility] Blood by Light Poikilocytosis Health Car e microscopy </td><td> [facility] Slight
</td> Calcium 8.9 mg/dL 8.6-10 <td> 12/24/2018 [facility] [Mass/volume] .2 06:54</td><td> [facility] in Blood mg/dL Calcium Health Care </td><td> [facility] 8.9
(8.6-10.2) mg/dL </td> Anion gap in 10 mEq/L 7-13 <td> 12/24/2018 [facility] Serum or Plasma mEq/L 06:54</td><td> [facility] Anion Gap Health Care </td><td> [facility] 10
(7-13) mEq/L </td> Chloride 99 mEq/L 98-107 <td> 12/24/2018 [facility] [Moles/volume] mEq/L 06:54</td><td> [facility] in Serum or Chloride Health Care Plasma </td><td> [facility] 99
(98-107) mEq/L </td> Creatinine 1.27 mg/dL 0.72-1 <td> 12/24/2018 [facility] [Moles/volume] .25 06:54</td><td> [facility] in Serum or mg/dL Creatinine. Health Care Plasma </td><td><Nexgence raph styleCode="Bold "> 1.27 H </paragraph>
(0.72-1.25) mg/dL </td> Carbon dioxide, 28 mEq/L 22-30 <td> 12/24/2018 [facility] total mEq/L 06:54</td><td> [facility] [Moles/volume] CO2 </td><td> Health Car e in Serum or Corporation Plasma 28
(22-30) mEq/L </td> Urea nitrogen 27 mg/dL 6-22 <td> 12/24/2018 [facility] r [Mass/volume] mg/dL 06:54</td><td> [facility] in Blood BUN Health Care </td><td><Nexgence raph styleCode="Bold "> 27 H </paragraph>
(6-22) mg/dL </td> Phosphate 2.7 mg/dL 2.3-4. <td> 12/21/2018 [facility] [Mass/volume] 7 05:29</td><td> [facility] in Serum or mg/dL Inorganic Health Care Plasma Phosphorus [facility] </td><td> 2.7
(2.3-4.7) mg/dL </td> Hemolysis index No <td> 12/24/2018 [facility] of Serum or Hemolysis 06:54</td><td> [facility] Plasma Hemolysis Index Health Care </td><td> Corporation No Hemolysis
</td> Appearance of Slightly-C <td> 12/20/2018 [facility] er Urine loudy 13:40</td><td> [facility] Appearance Health Care </td><td><frank Corporation raph styleCode="Bold "> Slightly-Cloudy * AB </paragraph>
(CLEAR) </td> Icteric index Non <td> 12/24/2018 [facility] r of Serum or Icteric 06:54</td><td> [facility] Plasma Icteric Index Health [facility] </td><td> [facility] Non Icteric
</td> Lipemic index No Lipemia <td> 12/24/2018 [facility] er of Serum or 06:54</td><td> [facility] Plasma Lipemia Index [facility] </td><td> [facility] No Lipemia
</td> Specific 1.006 {} 1.000- <td> 12/20/2018 [facility] gravity of 1.035 13:40</td><td> [facility] Urine by Test Specific Health Care strip [place] [facility] </td><td> 1.006
(1.000-1.035) </td> Urobilinogen 0.2 mg/dL 0.0-2. <td> 12/20/2018 [facility] [Presence] in 0 13:40</td><td> [facility] Urine by mg/dL Urobilinogen Health Care Automated test </td><td> Corporation strip 0.2
(0.0-2.0) mg/dL </td> Glucose Negative <td> 12/20/2018 [facility] [Presence] in 13:40</td><td> [facility] Urine by Test Glucose_ Health Care strip </td><td> Corporation Negative
(NEGATIVE) </td> Protein Negative <td> 12/20/2018 [facility] [Presence] in 13:40</td><td> [facility] Urine by Protein Health Care Automated test [employer] Corporation strip </td><td> Negative
(NEGATIVE) </td> Leukocyte 3+ <td> 12/20/2018 [facility] esterase 13:40</td><td> County [Presence] in Leukocytes Health Care Urine by Test Esterase Corporation strip </td><td><frank raph styleCode="Bold "> 3+ * AB </paragraph>
(NEGATIVE) </td> Leukocytes 98 /HPF 0-5 <td> 12/20/2018 [facility] [Presence] in /HPF 13:40</td><td> [facility] Urine by WBC Health Care Automated </td><td><frank Corporation raph styleCode="Bold "> 98 * AB </paragraph>
(0-5) /HPF </td> Nitrite Negative <td> 12/20/2018 [facility] [Presence] in 13:40</td><td> [facility] Urine by Test Nitrites Health Care strip </td><td> Corporation Negative
(NEGATIVE) </td> Glucose 199 mg/dL 70-105 <td> 12/25/2018 [facility] [Mass/volume] mg/dL 07:51</td><td> [facility] in Capillary Glucose - Health Care blood by [employer] [facility] Glucometer </td><td><frank raph styleCode="Bold "> 199 H </paragraph>
(70-105) mg/dL </td> Magnesium 2.5 mg/dL 1.6-2. <td> 12/24/2018 [facility] [Mass/volume] 6 06:54</td><td> [facility] in Serum or mg/dL Magnesium Level Health Care Plasma </td><td> [facility] 2.5
(1.6-2.6) mg/dL </td> Epithelial RARE <td> 12/20/2018 [facility] cells [#/area] <= FEW 13:40</td><td> [facility] in Urine Epithelial Health Care sediment by [employer] Automated count </td><td> RARE
/LPF
<= FEW

/LPF </td> Erythrocytes 4 /HPF 0-2 <td> 12/20/2018 [facility] [#/area] in /HPF 13:40</td><td> County Urine sediment RBC Health Care by Automated </td><td><frank Corporation count raph styleCode="Bold "> 4 * AB </paragraph>
(0-2) /HPF </td> Bacteria FEW <td> 12/20/2018 [facility] [#/area] in 13:40</td><td> [facility] Urine sediment Bacteria Health Care by Microscopy </td><td><frank Corporatio n high power raph field styleCode="Bold "> FEW * AB </paragraph>
(NONE) /HPF </td> Procedure Vital Signs ID Date Data Source UNK Name Value Range Interpretation Code Description Data Source(s) Diastolic blood 69 {} Normal (applies to 69 {} [place] pressure non-numeric results) [facility] Corpor[facility] on Systolic blood 151 {} Normal (applies to 151 {} [place] pressure non-numeric results) [facility] ty [facility] Corpor[facility] on First Respiration 19.0000 {} Normal (applies to 19.0000 {} [facility] [facility] rate Set non-numeric results) Coun ty [facility] Corporati on Heart rate 77.0000 {} Normal (applies to 77.0000 {} [facility] non-numeric results) [facility] ty [facility] Corpor[facility] on Body temperature 96.6000 {} Normal (applies to 96.6000 {} [facility] non-numeric results) [facility] Corpor[facility] on wt - obtain Normal (applies to {} [facility] [place] non-numeric results) [facility] Corpor[facility] on weight - kg 150.4000 {} Normal (applies to 150.4000 {} [place] non-numeric results) [facility] Corpor[facility] on Mean blood 77.0000 {} Normal (applies to 77.0000 {} [place] pressure non-numeric results) [facility] ty [facility] Corporati on height - cm Normal (applies to {} [facility] [place] non-numeric results) Coun ty [facility] Corporati on Diastolic blood 65 {} Normal (applies to 65 {} [place] pressure non-numeric results) Coun ty [facility] Corpor[facility] on Systolic blood 116 {} Normal (applies to 116 {} [place] pressure non-numeric results) Coun ty [facility] Corporati on First Respiration 17.0000 {} Normal (applies to 17.0000 {} [place] rate Set non-numeric results) Coun ty [facility] Corporati on Heart rate 58.0000 {} Normal (applies to 58.0000 {} [facility] [place] non-numeric results) Coun ty [facility] Corporati on Body temperature 97.3000 {} Normal (applies to 97.3000 {} [facility] [facility] non-numeric results) Coun ty [facility] wt - obtain Normal (applies to {} West[facility] lopez non-numeric results) [facility] weight - kg 154.9000 {} Normal (applies to 154.9000 {} Will [place] non-numeric results) [facility] height - cm Normal (applies to {} [facility] lopez non-numeric results) [facility] Diastolic blood 68 {} Normal (applies to 68 {} [place] pressure non-numeric results) [facility] Systolic blood 127 {} Normal (applies to 127 {} [place] pressure non-numeric results) [facility] First Respiration 18.0000 {} Normal (applies to 18.0000 {} [place] rate Set non-numeric results) [facility] Heart rate 64.0000 {} Normal (applies to 64.0000 {} West[facility] geraldine non-numeric results) [facility] Body temperature 97.0000 {} Normal (applies to 97.0000 {} [place] non-numeric results) [facility] wt - obtain Normal (applies to {} [facility] lopez non-numeric results) [facility] weight - kg 157.3000 {} Normal (applies to 157.3000 {} [place] non-numeric results) [facility] Diastolic blood 78 {} Normal (applies to 78 {} [place] pressure non-numeric results) [facility] Systolic blood 152 {} Normal (applies to 152 {} [place] pressure non-numeric results) [facility] First Respiration 17.0000 {} Normal (applies to 17.0000 {} [place] rate Set non-numeric results) [facility] Heart rate 66.0000 {} Normal (applies to 66.0000 {} [facility] geraldine non-numeric results) [facility] Body temperature 97.0000 {} Normal (applies to 97.0000 {} [place] non-numeric results) [facility] wt - obtain Normal (applies to {} [facility] lopez non-numeric results) [facility] weight - kg 157.9000 {} Normal (applies to 157.9000 {} [place] non-numeric results) [facility] height - cm Normal (applies to {} [facility] lopez non-numeric results) [facility] ID Date Data Source [id number] 01/09/2019 11:39:32 AM EST [facility] ([facility]) Name Value Range Interpretation Code Description Data Source(s) PAIN LEVEL 0 0 [facility] ([facility]) BLOOD SUGAR 142 mg/dL 142 mg/dL [facility] ([facility]) BLOOD SUGAR 205 mg/dL 205 mg/dL [facility] ([facility]) PAIN LEVEL 0 0 [facility] ([facility]) PAIN LEVEL 4 4 [facility] ([facility]) PAIN LEVEL 0 0 [facility] ([facility]) BLOOD SUGAR 200 mg/dL 200 mg/dL [facility] ([facility]) PAIN LEVEL 2 2 [facility] ([facility]) PAIN LEVEL 0 0 [facility] ([facility]) BLOOD SUGAR 224 mg/dL 224 mg/dL [facility] ([facility]) TEMPERATURE 98.1 F 98.1 F [facility] ([facility]) RESPIRATION 18 rpm 18 rpm [facility] ([facility]) PULSE 66 bpm 66 bpm [facility] ([facility]) OXYGEN SATURATION 97 % 97 % [facility] RE ([facility]) PAIN LEVEL 0 0 [facility] ([facility]) DIASTOLIC BLOOD 79 mmHg 79 mmHg [facility] ([facility]) SYSTOLIC BLOOD 145 mmHg 145 mmHg [facility] ([facility]) BLOOD SUGAR 256 mg/dL 256 mg/dL [facility] ([facility]) WEIGHT 344 lbs 344 lbs [facility] ([facility]) DIASTOLIC BLOOD 80 mmHg 80 mmHg [facility] ([facility]) SYSTOLIC BLOOD 174 mmHg 174 mmHg [facility] ([facility]) TEMPERATURE 96.8 F 96.8 F [facility] ([facility] [employer] [facility]) PAIN LEVEL 0 0 [facility] ([facility]) WEIGHT 342.1 lbs 342.1 lbs [facility] ([facility]) HEIGHT 74 in 74 in [facility] ([facility]) BLOOD SUGAR 130 mg/dL 130 mg/dL [facility] ([facility]) Patient Treatment Plan of Care Planned Activity Planned Date Details Description Data Source (s) Tdap (Adacel) Inj 07/19/2019 07:14:53 [facility] Lidocaine 1% ; Give 07/19/2019 05:52:48 [facility]T [facility] Zofran 4mg/2mL (Onda 05/22/2019 01:04:55 [facility] EDT [facility] 0.9% NaCl IV 05/22/2019 01:04:55 [facility] EDT [facility] Gastroview PO Contra 05/22/2019 01:04:55 [facility]T [facility] Zofran 4mg/2mL (Onda 01/08/2019 03:26:31 [facility] EST [facility] 0.9% NaCl IV 01/08/2019 01:58:07 [facility] EST [facility] Gastroview PO Contra 01/08/2019 01:44:50 [facility] EST [facility] Solu-Medrol (Methylp 12/18/2018 01:33:41 [facility] EDT [facility] Diazepam 10mg / 2 mL 12/18/2018 10:37:19 [facility] Ketorolac 30 mg / mL 12/18/2018 10:37:10 [facility] Furosemide (Lasix) I 12/18/2018 09:03:35 [facility] DuoNeb 0.5/3mg/3mL 12/18/2018 09:03:35 [facility]
--- NOTE | 2019-12-12 14:57 | PDOC ---
History of Present Illness - General Chief Complaint: Shortness of Breath Stated Complaint: SOB Time Seen by Provider: 12/12/19 14:56 - History of Present Illness Initial Comments: 12/12/19 15:50 HPI: This is a 79 y/o male with a PMH of CAD s/p 3 stents, CHF, COPD (on 3L home o2), HTN, IDDM, BPH, and parkinsons presenting to the ED due to intermittent SOB since last night. Last night he used his inhaler with improvement. This morning he was saturating in the 78-82% range on 3L NC. He was unable to find his inhaler, and there was no improvement with the use of oxygen so he came into the ED. He admits to an increased cough with sputum production over the past few days. He denied any accompanying chest pain, lightheadedness, fever/chills. Also admits to orthopnea at baseline. Spoke with his daughter who lives upstairs. Reports that patient is confused and forgetful at baseline due to Parkinsons. She reports that he has been experiencing an increased cough for the past few days. This morning he was having trouble breathing on his home oxygen. He was saturating 83% and then dropped to 55% at which point he was still responding but seemed more confused. Last hospitalized for COPD exacerbation and CHF exacerbation last year. ROS: GENERAL/CONSTITUTIONAL: No fever/chills, diaphoresis, or weakness. HEENT: No change in vision. No ear pain. No sore throat. CARDIOVASCULAR: No chest pain, palpitations or peripheral edema RESPIRATORY: Yes shortness of breath, dypnea on exertion, increased cough with sputum production, and orthopnea. GASTROINTESTINAL: No abdominal pain, nausea, vomiting, diarrhea or constipation. GENITOURINARY: No dysuria, frequency, or change in urination. MUSCULOSKELETAL: No joint or muscle swelling or pain. SKIN: No rash or hives NEUROLOGIC: No headache, vertigo, focal weakness, loss of consciousness, or change in strength/sensation. ENDOCRINE: No increased thirst. No unexplained weight loss. HEMATOLOGIC/LYMPHATIC: No anemia, easy bleeding, or history of blood clots. PMH: CAD s/p 3 stents, CHF, COPD (on 3L home o2), HTN, IDDM, BPH, and parkinsons PSx: Hernia, cholecystectomy, appendectomy Social Hx: Denied etoh, drug use. Quit tobacco 25 years ago. Meds: See nurse note Allergies: See nurse note PCP: Juan Najera Pulm: Ladonna Salazar PE: GENERAL: Awake, alert, and oriented obese man laying in bed. He is conversational, but hard to understand due to his Parkinsons. Confused at baseline. HEENT: Normocephalic, atraumatic. PERRLA, EOMI. No conjunctival pallor. Moist mucous membranes. NECK: Normal ROM and supple. No lymphadenopathy, JVD, or masses. CARDIOVASCULAR: Regular rate and rhythm, normal S1 and S2, no murmurs, rubs or g allops PULMONARY: Not in acute respiratory distress. Breath sounds equal. Bilateral ral es at the bases. Comfortable on 4L NC. ABDOMEN: Soft, nontender, normoactive bowel sounds. No guarding, no rebound. EXTREMITIES: Normal range of motion, no edema or erythema, no calf tenderness. No clubbing or cyanosis. Chronic venous stasis changes on l. leg. NEUROLOGICAL: Cranial nerves II through XII grossly intact. Normal speech, normal gait SKIN: Warm, Dry, normal turgor, no rashes or lesions noted. Normal capillary refill. PSYCHIATRIC: Cooperative, appropriate affect MDM: 12/12/19 16:03 This is a 79 y/o male with a PMH of CAD s/p 3 stents, CHF, COPD (on 3L home o2), HTN, IDDM, BPH, and parkinsons presenting to the ED due to intermittent SOB since last night, hypoxia, and increased cough with sputum production the past few days. - Patient is non-toxic in appearance, no acute respiratory distress - Laying in bed comfortably - Saturating in high 90's on 4L NC - Patient took 80mg Furosemide this morning ddx: CHF vs COPD exaxcerbation, pneumonia, ACS EKG, CXR CBC, CMP, BNP, Cardiac panel Dexamethasone 10mg, Albuterol inhaler, Azithromycin 500mg CXR: There are no prior studies for comparison. There is a large heart, prominent knob, fullness and blurring of the hilar and congestive changes. There is a slightly elevated right hemidiaphragm. A discrete infiltrate or pneumothorax is not seen. The bones and soft tissues are intact. Impression: Large heart. Congestive changes. EKG: No ST elevations or T wave inversions No prior EKG for comparison Sinus 1st degree AV block Vent rate 63 CT 226 QTc 460 QRS 102 12/12/19 18:22 Na 146 CO2 39 BUN 20.8 BNP 677 Ca 5.6 Albumin 2.5 Troponin negative - Corrected calcium still low at 6.5mg - Will supplement Calcium gluconate - Do not want to give furosemide due to decreased calcium 12/12/19 19:13 Microblog sent. Admit to tele due to calcium - Patient signed out to night team Past History - Medical History Allergies/Adverse Reactions: Allergies Allergy/AdvReac Type Severity Reaction Status Date / Time No Known Allergies Allergy Verified 12/12/19 14:19 Home Medications: Ambulatory Orders Cetirizine HCl [Zyrtec] 10 mg PO DAILY 12/12/19 Furosemide [Lasix] 80 mg PO DAILY 12/12/19 Pantoprazole Sodium 40 mg PO DAILY 12/12/19 Amlodipine Besylate 5 mg PO DAILY 12/13/19 Carbidopa-Levodopa 25-100 Tab 25 - 100 mg PO DAILY 12/13/19 Cetirizine HCl [Zyrtec] 10 mg PO DAILY 12/13/19 Clopidogrel Bisulfate [Plavix] 75 mg PO DAILY 12/13/19 Combivent Respimat 20-100 Mcg 12/13/19 Duloxetine HCl 60 mg PO BID 12/13/19 Finasteride 5 mg PO DAILY 12/13/19 Gabapentin 600 mg PO DAILY 12/13/19 Isosorbide Mononitrate ER 60 mg PO DAILY 12/13/19 Lantus 26 units SQ HS 12/13/19 Losartan Potassium 25 mg PO DAILY 12/13/19 Metoprolol Succinate 50 mg PO DAILY 12/13/19 Mirtazapine 15 mg PO HS 12/13/19 Novolog 6 unit SQ AC 12/13/19 Ranolazine ER 500 mg PO DAILY 12/13/19 Spiriva 18 mcg IH 12/13/19 Tamsulosin HCl [Flomax] 0.4 mg PO BID 12/13/19 Wellbutrin - 300 mg PO DAILY 12/13/19 COPD: Yes CHF: Yes Diabetes: Yes HTN: Yes Psychiatric Problems: Yes - Immunization History Td Vaccination: Yes TDAP Vaccination: Yes Immunization Up to Date: Yes - Psycho-Social/Smoking History Smoking History: Unknown if ever smoked - Substance Abuse Hx (Audit-C & DAST Scrn) In the last yr the pt used illegal drug/Rx for NonMed reason: No Score: Yes response is considered Positive: 0 Screen Result (Positive result requires Nsg. DAST-10): Negative *Physical Exam - Vital Signs Last Vital Signs Temp Pulse Resp BP Pulse Ox 98.2 F 64 18 117/54 L 96 12/12/19 13:52 12/12/19 13:52 12/12/19 13:52 12/12/19 13:52 12/12/19 13:52 ED Treatment Course - LABORATORY CBC & Chemistry Diagram: 12/13/19 06:25 12/13/19 06:25 Discharge - Discharge Information Problems reviewed: Yes Clinical Impression/Diagnosis: Congestive heart failure Qualifiers: Heart failure type: unspecified Heart failure chronicity: unspecified Qualified Code(s): I50.9 - Heart failure, unspecified - Follow up/Referral - Patient Discharge Instructions - Post Discharge Activity
--- NOTE | 2019-12-12 15:05 | PDOC ---
Attending Attestation - Resident Resident Name: Nick,Breanna - HPI HPI: 12/12/19 17:59 Pt presents to the ED complaining of shortness of breath and worsening hypoxia after running out of his inhaler. Extensive past medical history as described in resident note. Patient reports hypoxia into the 80s on 3 L NC. History of COPD and CHF. Reports compliance with his medications, including lasix. Denies chest pain. Patient is an extremely poor historian. 12/12/19 17:59 12/12/19 18:05 12/12/19 18:05 12/12/19 18:09 - Physicial Exam PE: 12/12/19 18:12 Agree with resident exam. Patient is alert and oriented and in no acute distres s. Cv; rrr no m/r/g pulm: cta b/l abd: soft, non tender, non distended, non guarding or rebound. Ext: no edema or tenderness. - Medical Decision Making 12/12/19 18:37 Pt presents to the ED complaining of shortness of breath. Differential included CHF exacerbation, COPD exacerbation, PNA, ACS. Labs show pronounced hypocalcemia. Troponin is normal and EKG shows no evidence of ischemia. CXR shows congestion. Will admit to medicine for continued management. Discharge - Discharge Information Problems reviewed: Yes Clinical Impression/Diagnosis: Congestive heart failure - Follow up/Referral - Patient Discharge Instructions - Post Discharge Activity
[2019-12-12] MEDS ORDERED: ALBUTEROL SO4 HFA INHALER IH ONE ×2 (15:31→16:35)
[2019-12-12] MEDS ORDERED: AZITHROMYCIN 250 MG TABLET PO ONE (15:31)
[2019-12-12] MEDS ORDERED: DEXAMETHASONE 4 MG TABLET (FP) PO ONE (15:34)
[2019-12-12] MEDS ORDERED: DEXAMETHASONE SOD PHOSPHATE 10 MG/1 ML VIAL ONE (16:28)
[2019-12-12] MEDS ORDERED: AZITHROMYCIN 250 MG TABLET ONE (16:29)
[2019-12-12] MEDS ORDERED: DEXAMETHASONE SOD PHOSPHATE 10 MG/1 ML VIAL IVPUSH ONE (16:32)
[2019-12-12 17:13] LABS: BASO % 0.4 % (0-2.0); EOS % 1.9 % (0-4.5); HEMATOCRIT 33.6 % (35.4-49); HEMOGLOBIN 10.2 GM/dL (11.7-16.9); LYMPH % 13.2 % (8-40); MCH 20.3 pg (25.7-33.7); MCHC 30.3 g/dl (32.0-35.9); MEAN PLT VOLUME 8.8 fl (7.5-11.1); MONO % 12.4 % (3.8-10.2); NEUT % 72.1 % (42.8-82.8); PLATELET COUNT 270 K/MM3 (134-434); RBC 5.01 M/mm3 (4.00-5.60); RDW 20.6 % (11.9-15.9); WHITE BLOOD COUNT 6.3 K/mm3 (4.0-10.0)
[2019-12-12 17:43] LABS: ALBUMIN 2.5 g/dl (3.4-5.0); ALK PHOS 161 U/L (45-117); ANION GAP 3 MMOL/L (8-16); BILIRUBIN,TOTAL 0.2 mg/dL (0.2-1); BLOOD UREA NITROGEN 20.8 mg/dL (7-18); CHLORIDE 104 mmol/L (98-107); CO2 39 mmol/L (21-32); GLUCOSE,RANDOM 97 mg/dL (74-106); POTASSIUM 3.4 mmol/L (3.5-5.1); SGOT/AST 23 U/L (15-37); SGPT/ALT 10 U/L (13-61); SODIUM 146 mmol/L (136-145); TOT PROT 6.3 g/dl (6.4-8.2)
[2019-12-12 17:55] LABS: CALCIUM 5.6 mg/dL (8.5-10.1)
[2019-12-12] MEDS ORDERED: CALCIUM GLUCONATE 10% - 1,000 MG/10 ML VIAL IVPB ONE (18:05)
[2019-12-12] MEDS ORDERED: CALCIUM GLUCONATE 10% - 1,000 MG/10 ML VIAL ONE (18:42)
--- NOTE | 2019-12-12 19:23 | PN ---
Teaching Attending Note Name of Resident: Nallely Nagy ATTENDING PHYSICIAN STATEMENT I saw and evaluated the patient. I reviewed the resident's note and discussed the case with the resident. I agree with the resident's findings and plan as documented. SUBJECTIVE: Patient is a 79 year old man with a PMH of CAD (s/p 3 stents), CHF, COPD (on 3L home O2), HTN, SBO (01/2019), Insulin-treated DM, BPH and Parkinson's disease presenting to the ER with complaint of intermittent SOB since last night. Last night he used his inhaler which improved his breathing. This morning he was saturating in the 78-82% range on 3L NC. He was unable to find his inhaler, and there was no improvement with the oxygen so he came into the ER. He denied any accompanying chest pain, lightheadedness, fever or chills. He admits to an increased cough with yellow sputum production over the past few days. Patient reports that he has orthopnea at baseline and is bedbound. Patient denies chest pain, abdominal pain, headache, palpitations, dizziness, nausea, vomiting, diarrhea, constipation, dysuria, frequency, urgency, melena, hematochezia or hematuria. Denies alcohol, tobacco or illicit drug use. No sick contacts or recent travels. Family history is unremarkable. OBJECTIVE: Alert Vital Signs Period Temp Pulse Resp BP Sys/Cole Pulse Ox Last 24 Hr 98.2 F 64-75 18-19 117/54 95-96 HEENT: No Jaundice, eye redness or discharge, PERRLA, EOMI. Normocephalic, atraumatic. External ears are normal and hearing is grossly intact. No nasal discharge. Neck: Supple, nontender. No palpable adenopathy or thyromegaly. No JVD Chest: Good effort. Clear to auscultation and percussion. Heart: Regular. No S3, rub or murmur Abdomen: Not distended, soft, nontender and no HSM. No rebound or guarding. Normal bowel sounds. Ext: Peripheral pulses intact. Leg edema. Chronic stasis dermatitis changes in legs. Skin: Warm and dry. No petechiae, rash or ecchymosis. Neuro: Alert. Oriented x3. CN 2-12 grossly intact. Sensation grossly intact in all four extremities and DTR are symmetric. Psych: Appropriate mood and affect. Good insight. Home Medications Medication Instructions Recorded Cetirizine HCl [Zyrtec] 10 mg PO DAILY 12/12/19 Furosemide [Lasix] 80 mg PO DAILY 12/12/19 Pantoprazole Sodium 40 mg PO DAILY 12/12/19 Abnormal Lab Results 12/12/19 12/12/19 10:28 10:28 Hgb 10.2 L Hct 33.6 L MCV 67.0 L MCH 20.3 L MCHC 30.3 L RDW 20.6 H Monocytes % 12.4 H Sodium 146 H Potassium 3.4 L Carbon Dioxide 39 H Anion Gap 3 L BUN 20.8 H Calcium 5.6 L* ALT 10 L Alkaline Phosphatase 161 H Total Protein 6.3 L Albumin 2.5 L ASSESSMENT AND PLAN: 1. CHF/COPD exacerbation - CXR shows cardiomegaly with increased interstitial infiltrates and blunted left costophrenic angle. ER staff prescribed Dexamethasone, Albuterol, Calcium gluconate and IV Azithromycin for the patient. EKG shows NSR at 63/minute, 1o AV block and QTc 460 with no significant acute ischemic ST-T wave changes. No old EKG available for comparison. Initial troponin is negative. Will avoid drugs that may prolong QTc. Will get urinalysis, CTA chest/thorax, treat with IV Lasix, get ECHO, restrict dietary salt intake, monitor renal function, monitor and replete electrolytes, get daily weight and consult Cardiology. Consult Pulmonary. Will treat with Xopenex, Solumedrol 40 mg q 8 hours, Symbicort and Azithromycin 500 mg IV QD and monitor peak flow. Hypocalcemia is likely partly due to hypoalbuminemia. Will get PTH, phosphate, vitamin D and urine calcium. Treat with Vitamin d analogue and Oscal. Hypokalemia likely partly due to diuresis with Lasix. Will check serum magnesium, give IV and PO KCL. Viral testing for COVID-19 ordered and patient placed on airborne, droplet and contact isolation. Started on supplemental oxygen via nasal cannula. Will continue comprehensive care for all of patients comorbid conditions. 2. Hypoalbuminemia - Possibly due to combined effects of malnutrition and infl ammation associated with comorbid conditions. Will ensure adequate dietary protein intake and also consult roof slater. Urinalysis pending. 3. DM For now, we will hold the home diabetes drugs and implement sliding scale insulin regimen. Provide comprehensive diabetes care with patient teaching and counseling about the importance of adherence to prescribed diabetes regimen, euglycemia, eye care and foot care. 4. Low MCV Anemia Will do basic anemia work up including serial stool guaiacs, reticulocyte count and iron studies. Consult GI for colonoscopy. 5. Morbid obesity Counseled on the risks associated with obesity. Will provide patient all the necessary assistance, counseling and positive reinforcement to facilitate weight loss. Consult roof slater. 6. Hypertension Will restart suitable outpatient antihypertensive drugs when clinically appropriate. Subsequently, will revise regimen to ensure [id number] excellent BP control. Patient counseled on the injurious effects of uncontrolled hypertension. Nonpharmacologic measures to control hypertension like weight loss, salt restriction and exercise stressed. Importance of adherence to treatment regimen and attainment of normotension emphasized. 7. DVT prophylaxis - Lovenox 40 mg SQ q 24 hours. 8. Advance directives - Full code
--- OUTSIDE RECORDS SUMMARY | 2019-12-12 20:11 | XMS ---
:1940 [facility] Providers Name Role Phone MD Gaudencio Unavailable Unavailable MD Gaudencio Unavailable Unavailable MD Gaudencio Unavailable Unavailable MD Gaudencio Unavailable Unavailable MD Gaudencio Unavailable Unavailable LUIS E, CHIKERE Unavailable Unavailable KEVIN THAKKAR Unavailable Unavailable LILIANA RIVERA Unavailable Unavailable ELENA TRINIDAD Unavailable Unavailable NAV THORPE Unavailable Unavailable EDILSON POLLARD Unavailable Unavailable DANIELLE CHACKO Unavailable Unavailable MD Devan CABELLO Unavailable Unavailable EMERGENCY SERVICE, X Unavailable Unavailable Chandy Unavailable Unavailable Chandy Unavailable Unavailable Chandy Unavailable Unavailable Chandy Unavailable Unavailable Chandy Unavailable Unavailable CABELLO, W Unavailable CABELLO, W Unavailable CABELLO, W Unavailable CABELLO, W Unavailable CABELLO, W Unavailable CABELLO, W Unavailable CABELLO, W Unavailable CABELLO, W Unavailable CABELLO, W Unavailable CABELLO, W Unavailable CABELLO, W Unavailable CABELLO, W Unavailable Devan CABELLO Unavailable MD DESTINEY [...] is protected by Article 27-F of the [facility] Public Health law. If you continue you may haveaccess to information: Regarding HIV / AIDS; Provided by facilities licensed or operated by the [facility] Office of Mental Health; or Provided by the [facility] Office for People With Developmental Disabilities. If such information is present, then the following [facility] mandated warning applies: This information has [...] law may result in a fine or intermediate sentence or both. A general authorization for the release of medical or other information is NOT sufficient authorization for further disclosure. Allergies and Adverse Reactions Type Description Substance Reaction Status Data Source(s ) 9 N/A N/A [employer] ([facility] [employer]) Encounters Encounter Providers Location Date Indications Data Source(s ) Emergency Attender: ATUL 07/19/2019 FINGER INJURY [facility] IVANAttender: 06:01:00 PM Health Car e EMERGENCY SERVICE, EDT Corpor ation XAdmitter: EDILSON POLLARD FINGER INJURY Emergency Attender: Cullen 05/22/2019 BOWEL OBSTUCTION [facility] MDAttender: 12:26:00 PM EDT Health Care EMERGENCY SERVICE, Corpor ation XAdmitter: Cullen Ratliff MD BOWEL OBSTUCTION Outpatient Attender: Woody 05/18/2019 06:00:00 R06.02 [facility] ChandyAdmitter: Woody AM EDT He[facility] Care ChandyReferrer: Woody Cor poration Marie R06.02 Outpatient Attender: AMOS, 03/11/2019 06:00:00 S09.90 XA [facility] ZVIAdmitter: AM EST [facility] ZVIReferrer: ELENA TRINIDAD S09.90XA Inpatient Attender: MIGUEL 01/08/2019 06:01:00 [facility] MARU RIVERA - [facility]21/2019 [facility]EL 06:44:00 PM [facility] Patient admitted. Emergency Attender: MIGUEL 01/08/2019 01:25:00 [facility]: MARU RIVERA [facility] PAIN Outpatient Attender: MD QUINONES CS XR-YSKY 01/05/2019 lab test JEFF Alarcon: 06:00:00 AM EST - [facility] Edson Alarcon: MD STACIE Alarcon: STACIE Garza: MD STACIE CABELLO lab test P Attender: MD QUINONES CS XR-YSKY 01/02/2019 lab test JEFF CABELLOAttender: 10:37:46 PM EDT [facility]: MD STACIE Alarcon: MD STACIE CABELLORefdexter: MD STACIE CABELLO lab test Inpatient Attender: 5th Floor-5th 01/02/2019 [facility] ( Abdi View STACIE Floor 01:00:00 PM EDT - Rehabil earlene & DESTINEY 01/08/2019 Health Care Ce nter 12:30:00 AM EST LLC) Patient discharged. Inpatient Attender: BIJAN 12/25/2018 01:55:00 DISABILIT Y [facility] MARIOAdmitter: BIJAN PM EDT - 01/02/2019 Health Care KEVIN 01:40:00 PM EDT Corporati on DISABILITY Patient admitted. Inpatient Attender: BIJAN 12/25/2018 12:58:00 DISABILIT Y [facility] MARIOAdmitter: BIJAN, PM EDT [facility] [employer] DISABILITY Inpatient Attender: BIJAN, 12/25/2018 06:00:00 DISABILIT Y [facility] MARIOAdmitter: BIJAN, AM EDT [facility] DISABILITY Inpatient Attender: LUIS E, 12/20/2018 10:40:00 COBD EXSTEFANO [facility] CHRISTIANOEAttender: MARU THORPE EDT - 12/25/2018 Health Care NEALAttender: GINNA, 01:54:00 PM EDT C laurie RICHARDAdmitter: ESTHER KIMBROUGH COBD EXAC Outpatient Attender: GINNA, 12/18/2018 COBD EXAC [facility]: LUIS E, 02:22:00 PM EDT [facility]: Maryse KIMBROUGH rporation CHIKERE COBD EXAC Emergency Attender: LUIS E 12/18/2018 08:44:00 [facility]U KIM[facility]OUGH EDT Figment Outpatient Attender: Woody 04/02/2018 06:00:00 J44.9 [facility] Woody MAHONEY EST Hea [employer] [facility] Clinicerrer: Woody Cor poration Roberto J44.9 Medications Medication Brand Start Product Dose Route Administrative Pharmacy [facility] Indications Reaction Description Data Name Date Form Instructions Instructions Source(s) Tdap Tdap 07/18/ 0.5 UNK active Tdap [facility] (Adacel) (Adace 2019 mL (Adacel) [place] [facility] [place]) Inj 07:14: 0.5 mL Health 53 PM Care EDT Corporatio n Medication administered onsite Lidocaine 1% Lidocaine 1% 07/19/2019 0 MG UNK active Lidocaine [place] ; Give ; Give 05:52:48 PM 1% ; Give [facility] EDT to provider Care to admin Corporation Medication administered onsite Ondansetron 05/22/2019 999 UNK completed On dansetron [place] HCl 4 MG Oral 05:23:16 PM MG HCl 4 MG [facility] EDT Oral Tablet Health C are TAKE 1 Corporation TABLET EVERY 6 TO 8 HOURS NEEDED FOR PAIN. Dispense: 12 Supervising physician: Cullen Ratliff MD Ondansetron 05/22/2019 999 UNK completed On dansetron [place] HCl 4 MG Oral 05:23:16 PM MG HCl 4 MG [facility] ED Oral Tablet Health are TAKE 1 Corporation TABLET EVERY 6 TO 8 HOURS NEEDED FOR PAIN. Dispense: 12 Supervising physician: Cullen Ratliff MD Gastroview PO Gastroview 05/22/2019 1000 UNK active Gastroview [place] Contra PO Contra 01:04:55 PM mL PO Con trast [facility] EDT (Adult) 1000 Health Care mL PO Corporation Medication administered onsite 0.9% 0.9% 05/22/2019 1000 mL UNK active 0.9% NaC l [place] NaCl IV NaCl IV 01:04:55 PM IV 1000 mL; [facility] EDT IV rate: Care Bolus over Corporati on 30 minutes Medication administered onsite Zofran Zofran 05/22/2019 4 mg UNK active Zofran 4mg/2mL [place] 4mg/2mL 4mg/2mL 01:04:55 PM (Ondans etron) [facility] (Onda (Onda EDT Injection 4 mg Car e IV Corporation Medication administered onsite Zofran Zofran 01/08/2019 4 mg UNK active Zofran 4mg/2mL [place] 4mg/2mL 4mg/2mL 03:26:31 AM (Ondans etron) [facility] (Onda (Onda EST Injection 4 mg Car e IVP Corporation Medication administered onsite 0.9% 0.9% 01/08/2019 1000 mL UNK active 0.9% NaC l [place] NaCl IV NaCl IV 01:58:07 AM IV 1000 mL; [facility] IV rate: Care Bolus over Corporati on 30 minutes Medication administered onsite Gastroview Gastroview 01/08/2019 1000 UNK active Gastroview [place] PO Contra PO Contra 01:44:50 AM mL PO Contrast County EST (Adult) Health Care 1000 mL PO Corporati on Medication administered onsite lactulose 10 Lactulose 667 01/07/2019 completed lactulose 10 [facility] (Abdi gram/15 mL MG/ML Oral 11:41:11 AM g demarco/15 mL View oral solution Solution EST oral Re habilitation solution & Health Ca re [facility]) prednisone Prednisone 01/05/2019 completed prednisone [facility] (Abdi 2.5 mg tablet 2.5 MG Oral 11:00:00 PM 2.5 mg View Tablet EST tablet Rehabilitat ion & Health Care [facility]) Miriam [id number] 01/05/2019 completed Mylanta [facility] (Abdi Maximum 07:00:00 PM Maximum Vi ew Strength EST Strength 400 Jane abilitation (alum-mag mg-400 mg-40 & Health Care hydroxide-sim mg/5 mL ora l [facility]) eth) 400 suspension mg-400 mg-40 mg/5 mL oral suspension Prilosec [id number] 01/05/2019 completed Prilosec 20 [facility] (Abdi (omeprazole) 07:00:00 PM mg View 20 mg EST capsule,hermes Rehabi litation capsule,delay yed release & Health Care ed release [facility]) Miriam [id number] 01/05/2019 completed Mylanta [facility] (Abdi Maximum 01:33:41 AM Maximum Vi ew Strength EST Strength 400 Jane abilitation (alum-mag mg-400 mg-40 & Health Care hydroxide[facility]sim [facility]) 400 suspension mg-400 mg-40 mg/5 mL oral suspension Zofran [id number] 01/04/2019 completed Zofran 8 mg [facility] (Abdi (ondansetron 08:00:00 PM table t View hcl) 8 mg EST Rehabilita tion tablet & Health Care [facility]) metoprolol [id number] 01/04/2019 completed metoprolol [facility] (Abdi succinate ER 03:46:26 PM succi lissette ER View 50 mg EST 50 mg Rehabilitatio n tablet,extend tablet,exte n & Health Care ed release 24 ded release [facility]) hr 24 hr Fleet Enema Sodium 01/04/2019 completed Fleet Enema [facility] (Abdi (sodium Phosphate, 01:56:53 PM 19 g demarco-7 View phosphates) Dibasic 59.3 EST gram/ 118 mL Rehabilitation 19 gram-7 MG/ML / & Healt h Care gram/118 mL Sodium [facility]) Phosphate, Monobasic 161 MG/ML Enema [Fleet Enema] prednisone 5 Prednisone 5 01/03/2019 completed prednisone 5 [facility] (Abdi mg tablet MG Oral 12:00:00 AM mg ta blet View Tablet EDT Rehabilitatio & [facility] Care [facility]) zinc oxide 20 Zinc Oxide 01/02/2019 completed zinc oxide [facility] (Abdi % topical 0.2 MG/MG 10:20:49 AM 20 % topical View ointment Topical EDT ointment Reha bilitation Ointment & Health Ca [facility]) ammonium ammonium 01/02/2019 completed a mmonium [facility] (Abdi lactate 12 % lactate 120 10:20:49 AM lactate 12 % View lotion MG/ML Topical EDT lotion Re habilitation Lotion & Health Care [facility]) Lantus 3 ML Insulin 01/02/2019 completed Lantus [facility] (Abdi Solostar Glargine 100 08:20:13 AM S olostar View U-100 Insulin UNT/ML Pen EDT U-100 Rehabilitation (insulin Injector Insulin 100 & Health Care glargine) 100 [Lantus] unit/mL ( Center [facility]) unit/mL (3 mL) mL) subcutaneous subcutaneous pen pen Humalog 3 ML Insulin 01/02/2019 completed Humalog [facility] (Abdi KwikPen Lispro 100 06:25:45 AM Kwik Pen View (U-100) UNT/ML Pen EDT (U-100) Jane abilitation (insulin Injector Insulin 100 & Health Care lispro) [Humalog] unit/mL [facility]) Insulin 100 subcutaneous unit/mL subcutaneous senna 8.6 mg sennosides, 01/02/2019 completed senna 8.6 mg [facility] (Abdi tablet PENITENTIARY 8.6 MG 06:12:04 AM table t View Oral Tablet EDT [facility]) Spiriva with tiotropium 01/02/2019 completed Spiriva with [facility] (Abdi HandiHaler 0.018 MG 06:12:04 AM Win diHaler View (tiotropium Inhalation EDT 18 mcg and Rehabilitation bromide) 18 Powder inhalation & Health Care mcg and [Spiriva] capsules [facility]) inhalation capsules Saline Nasal Sodium 01/02/2019 completed Saline Nasal [facility] (Abdi Ford (sodium Chloride 06:12:04 AM Ford 0.65 % View chloride) 0.111 MEQ/ML EDT aerosol Rehabilitation 0.65 % Nasal Ford & [facility] Care aerosol [facility]) Symbicort 120 ACTUAT 01/02/2019 completed Symbicort [facility] (Abdi (budesonide-f Budesonide 06:12:04 AM 160 mcg-4.5 View ormoterol) 0.16 EDT mcg/actuatio R ehabilitation 160 mcg-4.5 MG/ACTUAT / n HFA & Health Care mcg/actuation formoterol [facility]) HFA aerosol fumarate inhaler inhaler 0.0045 MG/ACTUAT Metered Dose Inhaler [Symbicort] Flomax [id number] 01/02/2019 completed Flomax 0.4 [facility] (Abdi (tamsulosin) 06:12:04 AM mg ca psule View 0.4 mg [facility]T [facility] Car e [facility]) mirtazapine Mirtazapine 01/02/2019 completed mirtazapine [facility] (Abdi 15 mg tablet 15 MG Oral 06:12:04 AM 15 mg tablet View Tablet EDT [facility] Care [facility]) metoprolol Metoprolol 01/02/2019 completed metoprolol [facility] (Abdi tartrate 50 Tartrate 50 06:12:04 AM tartrate 50 View mg tablet MG Oral EDT mg tablet Re habilitation [facility]) losartan 50 Losartan 01/02/2019 completed losartan 50 [facility] (Abdi mg tablet Potassium 50 06:12:04 AM mg tablet View MG Oral EDT Rehabilitati on [facility]) potassium Microencapsul 01/02/2019 completed potassium [facility] (Abdi chloride ER ated 06:12:04 AM chlori de ER View 20 mEq Potassium EDT 20 mEq Rehabi litation tablet,extend Chloride 20 tabl et,exten & Health Care ed MEQ Extended ded [facility]) release(part/ Release Oral rel ease(part cryst) Tablet /cryst) isosorbide 24 HR 01/02/2019 completed is osorbide [facility] (Abdi mononitrate Isosorbide 06:12:03 AM mononitrate View ER 60 mg Mononitrate EDT ER 60 mg Rehabilitation tablet,extend 60 MG tablet,ext en & Health Care ed release 24 Extended ded rel ease [facility]) hr Release Oral 24 hr Tablet gabapentin gabapentin 01/02/2019 completed gabapentin [facility] (Abdi 600 mg tablet 600 MG Oral 05:53:08 AM 600 mg View Tablet EDT tablet Rehabilitat ion & Health Care [facility]) heparin heparin 01/02/2019 completed hep cydney [facility] (Abdi (porcine) sodium, 05:53:08 AM (porc ine) View 5,000 unit/mL porcine 5000 EDT 5,0 00 Rehabilitation injection UNT/ML unit/mL & Hea [facility] Care solution Injectable injection [facility]) Solution solution finasteride 5 Finasteride 5 01/02/2019 completed finasteride [facility] (Abdi mg tablet MG Oral 05:53:08 AM 5 mg tablet View Tablet EDT Rehabilitatio n & Health Care [facility]) Lasix Furosemide 80 01/02/2019 completed Lasix 80 mg [facility] (Abdi (furosemide) MG Oral 05:53:08 AM ta blet View 80 mg tablet Tablet EDT Rehab ilitation [Lasix] & Health Car e [facility]) Cymbalta duloxetine 60 01/02/2019 completed Cymbalta 60 [facility] (Abdi (duloxetine) MG Delayed 05:53:07 AM mg View 60 mg Release Oral EDT capsule,del a Rehabilitation capsule,delay Capsule yed rele [facility] & Health Care ed release [Cymbalta] [facility]) docusate [id number] 01/02/2019 completed docusate [facility] (Abdi sodium 100 mg 05:53:07 AM sodi um 100 View tablet EDT mg tablet [facility]) Plavix clopidogrel 01/02/2019 completed Plavix 75 mg [facility] (Abdi (clopidogrel) 75 MG Oral 05:53:07 AM tablet View 75 mg tablet Tablet EDT Rehab ilitation [Plavix] & Health Ca re [facility]) Aspirin Aspirin 81 MG 01/02/2019 completed Aspirin [facility] (Abdi Childrens Chewable 05:53:07 AM Chil drens 81 View (aspirin) 81 Tablet EDT mg chewabl e Rehabilitation mg chewable tablet & [facility] Care tablet [facility]) carbidopa 25 Carbidopa 25 01/02/2019 completed carbidopa 25 [facility] (Abdi mg-levodopa MG / Levodopa 05:53:07 AM mg-levodopa View 100 mg tablet 100 MG Oral EDT 100 mg Rehabilitation Tablet tablet & Health Ca re [facility]) Wellbutrin XL 24 HR 01/02/2019 completed Wellbutrin [facility] (Abdi (bupropion Bupropion 05:53:07 AM XL 300 mg 24 View hcl) 300 mg Hydrochloride EDT hr t ablet, Rehabilitation 24 hr tablet, 300 MG extended & Health Care extended Extended release Cent er [facility]) release Release Oral Tablet [Wellbutrin] atorvastatin atorvastatin 01/02/2019 completed atorvastatin [facility] (Abdi 80 mg tablet 80 MG Oral 05:53:07 AM 80 mg tablet View [facility]t [facility]) amlodipine 10 Amlodipine 10 01/02/2019 completed amlodipine [facility] (Abdi mg tablet MG Oral 05:53:07 AM 10 mg tablet View Tablet EDT [facility]) Tubersol Purified 01/02/2019 completed T ubersol 5 [facility] (Abdi (tuberculin Protein 05:40:09 AM tub . View ppd) 5 tub. Derivative of EDT unit /0.1 mL Rehabilitation unit/0.1 mL Tuberculin 50 intr adermal & Health Care intradermal UNT/ML injection C enter [facility]) injection Injectable solution solution Solution [Tubersol] Milk [...] EDT tablet Rehabilitat ion & Health Care [facility]) bisacodyl 5 Bisacodyl 5 01/02/2019 completed bisacodyl 5 [facility] (Abdi mg MG Delayed 05:40:08 AM mg Vi ew tablet,delaye Release Oral EDT tab let,delay Rehabilitation d release Tablet ed release & Health Care [facility]) Solu-Medrol Solu-Medrol 12/18/2018 40 UNK active Solu-Medrol [place] (Methylp (Methylp 01:33:41 PM mg ([facility] isolone Sod Care Succ) Corporation Injection 40 mg IVP Medication administered onsite Diazepam Diazepam 12/18/2018 2 mg UNK active Sharifa zepam [place] 10mg / 2 mL 10mg / 2 mL 10:37:19 AM 10mg/[facility]mL [facility] Care Injection 2 Corporat ion mg IVP Medication administered onsite Ketorolac 30 Ketorolac 30 12/18/2018 15 UNK active Ketorolac [place] mg / mL mg / mL 10:37:10 AM mg 30 mg/m L [facility] EDT (Toradol) Care Injection Corporatio n 15 mg IVP Medication administered onsite DuoNeb DuoNeb 12/18/2018 0.5 UNK active DuoNeb 0.5/3mg/3mL [place] 0.5/3mg/3mL 0.5/3mg/3mL 09:03:35 AM /3 (Ipratropium/Albuterol) [facility] Inh Give 0.5/3mg /3 mL Health Care Inhalation (3 times in May) Medication administered onsite Furosemide Furosemide 12/18/2018 80 UNK active Furosemide [place] (Lasix) I (Lasix) I 09:03:35 AM mg (La six) [facility] e Give 80 mg Corporat ion IVP Medication administered onsite 3 ML Insulin Lantus Solostar 12/18/2018 completed [place] Glargine 100 (Insulin 12:00:00 AM [facility] UNT/ML Pen Glargine) [100 EDT Care Injector Lantus unit/mL (3 mL) [facility] Solostar Insulin Pen]: 38 (Insulin Unit Glargine) [100 Subcutaneous unit/mL (3 mL) DAILY Insulin Pen]: 38 Unit Subcutaneous DAILY Insurance Providers Payer name Policy type Policy ID Covered Covered alliance party's Policy P nathan / Coverage alliance party ID relationship to Foster Inf ormation type foster BC PPO [id number] SP [id number] MEDICARE [id number] SP [id number] UNK [id number] UNK UNK UNK UNK [id number] UNK UNK UNK Blue Cross / Blue Cross / [id number] Self [id number] [facility] 79 Medicare Medicare [id number] Self [id number] Part B Part B 8 Medicare Medicare [id number] Self [id number] Part A Part A 8 SELF PAY SP Medicare Medicare [id number] Self [id number] Part A Part A 8 UNK [id number] UNK UNK UNK Blue Cross / 6 [id number] Self [id number] [facility] 79 Medicare 2 [id number] Self [id number] Part B 8 Medicare 18 [id number] Self [id number] Part A 8 SELF PAY SP UNK [id number] UNK UNK UNK Problems, Conditions, and Diagnoses Code Display Name Description Problem Type Effective Data Sour ce(s) Dates Z79.4 [facility] (current) SENIOR CARE Diagnosis 07/19/2019 [facility] lopez use of insulin (CURRENT) USE OF 06:01:00 PM [facility] INSULIN EDT Care Corporati on G20 Parkinson's disease PARKINSON'S Diagnosis 07/19/2019 [place] art DISEASE 06:01:00 PM [facility] EDT Care Corporati on 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 07/19/2019 [facility] geraldine infarction INFARCTION 06:01:00 PM [facility] EDT Care Corporati on J44.9 Chronic obstructive CHRONIC [facility]IVE 06:01:00 PM [facility] unspecified PULMONARY EDT Care Corporat ion DISEASE, UNSPECIFIED E11.9 Type 2 diabetes TYPE 2 DIABETES Diagnosis 07/19/[address] mellitus without MELLITUS WITHOUT 06:01:00 PM [facility] complications COMPLICATIONS EDT Care Cor poration I50.32 Chronic diastolic CHRONIC DIASTOLIC Diagnosis 07/19/2019 [place] (congestive) heart (CONGESTIVE) 06:01:00 PM [facility] failure HEART FAILURE EDT Care Corpor ation I11.0 Hypertensive heart HYPERTENSIVE Diagnosis 07/19/2019 [place] art disease with heart HEART DISEASE 06:01:00 PM Co unty Health failure WITH HEART EDT Care Corporati on FAILURE Z23 Encounter for ENCOUNTER FOR Diagnosis 07/19/2019 [facility] immunization IMMUNIZATION 06:01:00 PM [facility] EDT Care Corporati on Y99.8 Other external OTHER EXTERNAL Diagnosis 07/19/2019 [facility] cause status CAUSE STATUS 06:01:00 PM [facility] EDT Care Corporati on Y92.[address] in OTH PLACE IN OTH Diagnosis 07/19/[address] other NON-INSTITUTIONAL 06:01:00 PM [facility] non-institutional RESIDENCE EDT Care Corporation residence as the PLACE place of occurrence of the external cause W05.0XXA Fall from FALL FROM Diagnosis 07/19/2019 [place] non-moving NON-MOVING 06:01:00 PM [facility] wheelchair, initial WHEELCHAIR, EDT Care Corporation encounter INITIAL ENCOUNTER S80.11XA Contusion of right CONTUSION OF Diagnosis 07/19/[address] lower leg, initial RIGHT LOWER LEG, 06:01:00 PM [facility] encounter INITIAL ENCOUNTER EDT Care Co rporation S50.01XA Contusion of right CONTUSION OF Diagnosis 07/19/[address] elbow, initial RIGHT ELBOW, 06:01:00 PM [facility] encounter INITIAL ENCOUNTER EDT Care Co rporation S61.216A Laceration without LAC W/O FB OF R Diagnosis 07/19/2019 [facility] foreign body of LITTLE FINGER W/O 06:01:[address] 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 05/22/2019 [facility] use of oral (CURRENT) USE OF 12:26:00 PM [facility] hypoglycemic drugs ORAL HYPOGLYCEMIC EDT Care [facility] DRUGS Z87.2 Personal history of PERSONAL HISTORY Diagnosis 05/22/2019 [place] diseases of the OF DISEASES OF 12:26:00 PM [facility] skin and THE SKIN, SUBCU EDT Care Janie oration subcutaneous tissue E04.9 Nontoxic goiter, NONTOXIC GOITER, Diagnosis 05/22/2019 Reynaldo jacinto unspecified UNSPECIFIED 12:26:00 PM [facility] EDT Care Corporati on M19.90 Unspecified UNSPECIFIED Diagnosis 05/22/2019 [place] osteoarthritis, OSTEOARTHRITIS, 12:26:00 PM [facility] unspecified site UNSPECIFIED SITE EDT Ca re Corporation F32.9 Major depressive MAJOR DEPRESSIVE Diagnosis 05/22/2019 [facility] disorder, single DISORDER, SINGLE 12:26:00 PM [facility] episode, EPISODE, EDT Care Corporati on unspecified UNSPECIFIED I50.30 Unspecified UNSPECIFIED Diagnosis 05/22/2019 [place] diastolic DIASTOLIC 12:26:00 PM [facility] (congestive) heart (CONGESTIVE) EDT [facility] failure HEART FAILURE J45.909 Unspecified asthma, UNSPECIFIED Diagnosis 05/22/2019 [place] art uncomplicated ASTHMA, 12:26:00 PM [facility] UNCOMPLICATED EDT Care Corpor ation R10.84 Generalized GENERALIZED Diagnosis 05/22/2019 [place] abdominal pain ABDOMINAL PAIN 12:26:00 PM [facility] EDT Care Corporati on R19.7 Diarrhea, DIARRHEA, Diagnosis 05/22/2019 [place] unspecified UNSPECIFIED 12:26:00 PM [facility] EDT Care Corporati on R11.2 Nausea with NAUSEA WITH Diagnosis 05/22/2019 [place] vomiting, VOMITING, 12:26:00 PM [facility] unspecified UNSPECIFIED EDT Care Corpora tion R06.02 Shortness of breath SHORTNESS OF Diagnosis 05/18/2019 [place] BREATH 06:00:00 AM [facility] EDT Care Corporati on S09.90XA Unspecified injury UNSPECIFIED Diagnosis 03/11/2019 [facility] lopez of head, initial INJURY OF HEAD, 06:00:00 AM Co unty Health encounter INITIAL ENCOUNTER EST Care Co rporation 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 ACQUIRED ABSENCE Diagnosis 01/21/2019 [place] stomach [part of] OF STOMACH (PART 06:44:00 PM [facility] OF) EST Care Corpor[facility] on E66.9 Obesity, OBESITY, Diagnosis 01/21/2019 [place] unspecified UNSPECIFIED 06:44:00 PM [facility] EST Care Corpor[facility] on K59.09 Other constipation OTHER Diagnosis 01/21/2019 [facility] geraldine CONSTIPATION 06:44:00 PM [facility] EST Care Corporati on Z87.891 Personal history of PERSONAL HISTORY Diagnosis 01/21/2019 [place] nicotine dependence OF NICOTINE 06:44:00 PM Cou nt Health DEPENDENCE EST Care Corpor[facility] on Z79.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 Diagnosis 01/21/2019 [place] (current) drug (CURRENT) DRUG 06:44:00 PM Count y Health therapy THERAPY EST Care Corpor[facility] on 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 Diagnosis 01/21/2019 [facility] supplemental oxygen SUPPLEMENTAL 06:44:00 [facility] on 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) SENIOR CARE Diagnosis 01/21/2019 [facility] lopez use of aspirin (CURRENT) USE OF 06:44:00 PM Cou [facility] ASPIRIN EST Care Corpor[facility] on Z95.5 Presence of PRESENCE OF Diagnosis 01/21/2019 [place] coronary CORONARY 06:44:00 PM [facility] angioplasty implant ANGIOPLASTY EST [facility] and graft IMPLANT AND GRAFT 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 01/21/2019 [facility] heart disease of DISEASE OF [place] 06:44:00 PM [facility] [place] coronary CORONARY ARTERY EST [facility] artery without W/O ANG PCTRS angina pectoris Z68.41 Body mass index BODY MASS INDEX Diagnosis 01/21/[address] (BMI) 40.0-44.9, (BMI) 40.0-44.9, 06:44:00 PM C ou[facility]ens [facility] adult ADULT EST Care Corpor[facility] on K56.50 Intestinal INTESTNL Diagnosis 01/08/2019 [place] adhesions [bands], ADHESIONS, UNSP 06:01:00 AM [facility] unspecified as to TO PARTIAL EST Care [...] Rehabilitation & neuropathy neuropathy [facility]) K30 Functional Functional Diagnosis 01/05/2019 [facility] (Abdi dyspepsia dyspepsia 12:00:00 AM View EST [facility]) R11.2 Nausea with Nausea with Diagnosis 01/05/2019 [facility] ([place] vomiting, vomiting, 12:00:00 AM View unspecified unspecified EST Rehabilitati on & [facility]) I50.33 Acute on chronic Acute on chronic Diagnosis 01/05/2019 [facility] ([place]di diastolic diastolic 12:00:00 AM View (congestive) heart (congestive) EST Reha bilitation & failure heart failure [facility]) K59.09 Other constipation Other Diagnosis 01/04/2019 [facility] (Abdi constipation 12:00:00 AM View EDT Rehabilitation [facility]) Z95.1 Presence of PRESENCE OF Diagnosis 01/02/2019 [place] aortocoronary AORTOCORONARY 01:40:00 PM [facility] bypass graft BYPASS GRAFT EDT Care Corpo ration F41.8 Other specified OTHER SPECIFIED Diagnosis 01/02/[address] anxiety disorders ANXIETY DISORDERS 01:40:00 PM [facility] EDT Care Corpor[facility] on N40.0 Benign prostatic BENIGN PROSTATIC Diagnosis 01/02/2019 [facility] hyperplasia without HYPERPLASIA 01:40:00 PM [employer] [facility] lower urinary tract WITHOUT LOWER EDT Ca re [facility] symptoms URINRY TRACT SYMP E78.5 Hyperlipidemia, HYPERLIPIDEMIA, Diagnosis 01/02/2019 [place] art unspecified UNSPECIFIED 01:40:00 PM [facility] EDT Care Corpor[facility] on E66.01 Morbid (severe) MORBID (SEVERE) Diagnosis 01/02/[address] obesity due to OBESITY DUE TO 01:40:00 PM Count y Health excess calories EXCESS CALORIES EDT [facility] J18.9 Pneumonia, PNEUMONIA, Diagnosis 01/02/2019 [place] unspecified UNSPECIFIED 01:40:00 PM [facility] organism ORGANISM EDT Care [facility] on L30.9 Dermatitis, Dermatitis, Diagnosis 01/02/2019 [facility] ([place] unspecified unspecified 12:00:00 AM View EDT [facility]) L85.3 Xerosis cutis Xerosis cutis Diagnosis 01/02/2019 [facility] (Abdi 12:00:00 AM View EDT [facility]) R09.81 Nasal congestion Nasal congestion Diagnosis 01/02/2019 [facility] (Abdi 12:00:00 AM View EDT [facility]) E87.6 Hypokalemia Hypokalemia Diagnosis 01/02/2019 [facility] ([place] 12:00:00 AM View EDT [facility]) F32.0 Major depressive Major depressive Diagnosis 01/02/2019 [facility] (Abdi disorder, single disorder, single 12:00:00 AM V iew episode, mild episode, mild EDT Rehabili t[facility] & [facility]) Z29.9 Encounter for Encounter for Diagnosis 01/02/2019 [facility] (Abdi prophylactic prophylactic 12:00:00 AM View measures, measures, EDT Rehabilitation & unspecified unspecified [facility]) 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 01/02/2019 [facility] (Abdi due to underlying undrl condition w 12:00:00 AM View condition with diabetic EDT Rehabilita tion & diabetic mononeuropathy Health Car e mononeuropathy Center [facility] ) Z11.1 Encounter for Encounter for Diagnosis 01/02/2019 [facility] (Abdi screening for screening for 12:00:00 AM View respiratory respiratory EDT Rehabilitati on & tuberculosis tuberculosis Health Car e [facility]) R52 Pain, unspecified Pain, unspecified Diagnosis 01/02/2019 [facility] (Abdi 12:00:00 AM View EDT Rehabilitation & Health Care [facility]) K59.00 Constipation, Constipation, Diagnosis 01/02/2019 [facility] (Abdi unspecified unspecified 12:00:00 AM View EDT Rehabilitation & Health Care [facility]) G47.30 Sleep apnea, Sleep apnea, Diagnosis 01/02/2019 [facility] (Abdi unspecified unspecified 12:00:00 AM View EDT [facility]) R06.02 Shortness of breath Shortness of Diagnosis 01/02/2019 [facility] (Abdi breath 12:00:00 AM View EDT [facility]) N40.1 Benign prostatic Benign prostatic Diagnosis 01/02/2019 [facility] (Abid hyperplasia with hyperplasia with 12:00:00 AM V iew lower urinary tract lower urinary EDT Re habilitation & symptoms tract symp [facility]) F32.1 Major depressive Major depressive Diagnosis 01/02/2019 [facility] (Abdi disorder, single disorder, single 12:00:00 AM V iew episode, moderate episode, moderate EDT [facility]) G20 Parkinson's disease Parkinson's Diagnosis 01/02/2019 [facility] (Abdi disease 12:00:00 AM View EDT [facility]) E11.9 Type 2 diabetes Type 2 diabetes Diagnosis 01/02/2019 [facility] (Abdi mellitus without mellitus without 12:00:00 AM V iew complications complications EDT [facility]) E78.5 Hyperlipidemia, Hyperlipidemia, Diagnosis 01/02/2019 [facility] (Abdi unspecified unspecified 12:00:00 AM View EDT [facility]) 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 01/02/2019 [facility] (Abdi heart disease of disease of [place] 12:00:00 AM View [place] coronary coronary artery EDT Reha bilitation & [facility]) I10 Essential (primary) Essential Diagnosis 01/02/2019 [facility] (Abdi hypertension (primary) 12:00:00 AM View hypertension EDT [facility]) J44.9 Chronic obstructive Chronic Diagnosis 01/02/2019 [facility] (Abdi pulmonary disease, obstructive 12:00:00 AM View unspecified pulmonary EDT Rehabilitatio n & disease, Health Care unspecified [facility]) I50.32 Chronic diastolic Chronic diastolic Diagnosis 01/02/2019 [facility] (Abdi (congestive) heart (congestive) 12:00:00 AM Vie w failure heart failure EDT [facility]) R53.81 Other malaise OTHER MALAISE Diagnosis 12/25/[address] [facility] [address] 01:55:00 PM [facility] EDT [facility] on G89.29 Other chronic pain OTHER CHRONIC Diagnosis 12/25/2018 [place] PAIN 01:54:00 PM [facility] EDT Care Corpor[facility] on J96.11 Chronic respiratory CHRONIC Diagnosis 12/25/2018 [facility] lopez failure with RESPIRATORY 01:54:00 PM [facility] hypoxia FAILURE WITH EDT Care Corpora tion HYPOXIA N39.0 Urinary tract URINARY TRACT Diagnosis 12/25/2018 [facility] infection, site not INFECTION, SITE 01:54:00 PM [facility] specified NOT SPECIFIED EDT Care Corpor ation G62.9 Polyneuropathy, POLYNEUROPATHY, Diagnosis 12/25/2018 [place] unspecified UNSPECIFIED 01:54:00 PM [facility] [facility] EDT Care Corporati on D50.9 Iron deficiency IRON DEFICIENCY Diagnosis 12/25/2018 [place] art anemia, unspecified ANEMIA, 01:54:00 PM [facility] UNSPECIFIED EDT Care Corporat ion K21.9 Gastro-esophageal GASTRO-ESOPHAGEAL Diagnosis 12/25/2018 [place] reflux disease REFLUX DISEASE 01:54:00 PM Count y Health without esophagitis WITHOUT EDT [facility] ESOPHAGITIS Results ID Date Data Source [id number] 01/21/2019 02:15:00 AM EST [facility] [id number] Corporation Name Value Range Interpretation Description Data Sup porting Code Source(s) Document(s ) Erythrocytes 4.48 m/mm3 4.70-6 <td> 01/21/2019 [facility] [#/volume] in .10 02:15</td><td> [facility] Blood m/mm3 RBC Health Care </td><td><[employer] raph styleCode="Bold "> 4.48 L </paragraph>
(4.70-6.10) m/mm3 </td> Hemoglobin 9.6 g/dL 14.0-1 <td> 01/21/2019 [place] [Mass/volume] 8.0 02:15</td><td> [facility] in Blood g/dL HGB [facility] Care </td><td><[employer] raph styleCode="Bold "> 9.6 L </paragraph>
(14.0-18.0) g/dL </td> Leukocytes 9.6 k/mm3 4.8-10 <td> 01/21/2019 [place] [#/volume] in .8 02:15</td><td> County Blood by k/mm3 WBC </td><td> Health Care Automated Corporation count 9.6
(4.8-10.8) k/mm3 </td> Hematocrit 33.2 % 40.8-4 <td> 01/21/2019 [place] [Volume 6.9 % 02:15</td><td> County Fraction] of HCT Health Care Blood by </td><td><[employer] Automated raph count styleCode="Bold "> 33.2 L </paragraph>
(40.8-46.9) % </td> Erythrocyte 74.1 fL 80.0-9 <td> 01/21/2019 [place] mean 4.0 fL 02:15</td><td> [facility] corpuscular [facility] volume </td><td><frank Corporation [Entitic raph volume] by styleCode="Bold Automated "> count 74.1 L </paragraph>
(80.0-94.0) fL </td> Erythrocyte 21.4 pg 27.0-3 <td> 01/21/2019 [place] mean 1.5 pg 02:15</td><td> [place] corpuscular [facility] hemoglobin </td><td><[employer] Corporation [Entitic mass] raph by Automated styleCode="Bold count "> 21.4 L </paragraph>
(27.0-31.5) pg </td> Erythrocyte 28.9 % 32.0-3 <td> 01/21/2019 [place] mean 6.0 % 02:15</td><td> [facility] corpuscular [facility] hemoglobin </td><td><frank Corporation concentration raph [Mass/volume] styleCode="Bold in Blood from "> Fetus by 28.9 Automated L count </paragraph>
(32.0-36.0) % </td> Lymphocytes 8.8 % 16.0-5 <td> 01/21/2019 [place] [#/volume] in 0.0 % 02:15</td><td> [facility] Blood by Lymphocytes Health Care Automated </td><td><[employer] Corporation count raph styleCode="Bold "> 8.8 L </paragraph>
(16.0-50.0) % </td> Platelets 425 k/mm3 160-41 <td> 01/21/2019 [place] [#/volume] in 0 02:15</td><td> [facility] Blood by k/mm3 Platelet Count Health Care Automated </td><td><frank Corporation count raph styleCode="Bold "> 425 H </paragraph>
(160-410) k/mm3 </td> Platelet mean 9.6 fL 9.8-12 <td> 01/21/2019 [facility] r volume .8 fL 02:15</td><td> County [Entitic MPV Health Care volume] in </td><td><[employer] Blood by raph Automated styleCode="Bold count "> 9.6 L </paragraph>
(9.8-12.8) fL </td> Erythrocyte 19.7 % 11.5-1 <td> 01/21/2019 [place] distribution 4.5 % 02:15</td><td> County width [Entitic RDW Health Care volume] by </td><td><frank [facility] Automated raph count styleCode="Bold "> 19.7 H </paragraph>
(11.5-14.5) % </td> Basophils 0.4 % 0.0-2. <td> 01/21/2019 [place] [#/volume] in 0 % 02:15</td><td> [facility] Blood by Basophils Health Care Automated </td><td> Corporation count 0.4
(0.0-2.0) % </td> Monocytes/Leuk 12.1 % 0.0-11 <td> 01/21/2019 [facility] er ocytes [Pure .0 % 02:15</td><td> [facility] [place] number Monocytes. Health Care fraction] in </td><td><[employer] Blood by raph Automated styleCode="Bold count "> 12.1 H </paragraph>
(0.0-11.0) % </td> Basophils+Eosi 2.5 % 0.0-5. <td> 01/21/2019 [facility] er nophils+Monocy 0 % 02:15</td><td> [facility] [place] marlen [#/volume] Eosinophils Health Care in Blood by </td><td> Corporation Automated count 2.5
(0.0-5.0) % </td> Anisocytosis Slight <td> 01/21/2019 [place] [Presence] in 02:15</td><td> [facility] Blood by Light Anisocytosis Health Care microscopy </td><td> [facility] Slight
</td> Neutrophils 75.3 % 34.0-7 <td> 01/21/2019 [place] [#] in Body 6.0 % 02:15</td><td> [place] fluid by Neutrophils Health Care Manual count </td><td> [facility] 75.3
(34.0-76.0) % </td> Immature 0.9 % 0.0-0. <td> 01/21/2019 [place] granulocytes/1 5 % 02:15</td><td> [facility] 00 leukocytes IG% Health Care in Blood by </td><td><[employer] Automated raph count styleCode="Bold "> 0.9 H </paragraph>
(0.0-0.5) %
The IG fraction represents metamyelocytes, myelocytes and/or
promyelocytes and is only reported as part of the automated
differential when found at a percentage of less than 6.
If higher than 6%, a manual differential will be performed.

(0.0-0.5) % </td> Metamyelocytes 2.0 % % <td> 01/15/2019 [facility] er [#/volume] in 02:39</td><td> [place] Blood by Metamyelocytes Health Care Manual count </td><td><[employer] raph styleCode="Bold "> 2.0 * AB </paragraph>
% </td> Poikilocytosis SLIGHT <td> 01/18/2019 [facility] er [Presence] in 06:48</td><td> [place] Blood by Light Poikilocytosis Health Car e microscopy </td><td> [facility] SLIGHT
</td> Polychromasia Slight <td> 01/19/2019 [facility] r [Presence] in 01:13</td><td> [place] Blood by Light Polychromasia Health Care microscopy </td><td> [facility] Slight
</td> Microcytes Slight <td> 01/21/2019 [place] [Presence] in 02:15</td><td> [facility] Blood by Light Microcytic Health Care microscopy </td><td> Corporation Slight
</td> Hypochromia Slight <td> 01/15/2019 [place] [Presence] in 02:39</td><td> [facility] Blood by Light Hypochromia Health Care microscopy </td><td> [facility] Slight
</td> Glucose 143 mg/dL 70-105 <td> 01/21/2019 [place] [Mass/volume] mg/dL 02:15</td><td> [facility] in Blood Glucose-Serum Health Care </td><td><[employer] raph styleCode="Bold "> 143 H </paragraph>
(70-105) mg/dL </td> Sodium 137 mEq/L 135-14 <td> 01/21/2019 [place] [Moles/volume] 5 02:15</td><td> County in Serum or mEq/L Sodium-Serum Health Care Plasma </td><td> [facility] 137
(135-145) mEq/L </td> Ovalocytes Few <td> 01/19/2019 [place] [Presence] in 01:13</td><td> [place] Blood by Light Ovalocytes Health Care microscopy </td><td> [facility] Few
</td> Schistocytes Occasional <td> 01/19/2019 [facility] [Presence] in 01:13</td><td> [place] Blood by Light Schistocytes Health Care microscopy </td><td> Corporation Occasional
</td> Carbon 22 mEq/L 22-30 <td> 01/21/2019 [place] dioxide, total mEq/L 02:15</td><td> County [Moles/volume] CO2 </td><td> Health Car e in Serum or Corporation Plasma 22
(22-30) mEq/L </td> Chloride 108 mEq/L 98-107 <td> 01/21/2019 [place] [Moles/volume] mEq/L 02:15</td><td> [place] in Serum or Chloride Health Care Plasma </td><td><frank Corporation raph styleCode="Bold "> 108 H </paragraph>
(98-107) mEq/L </td> Potassium 4.1 mEq/L 3.5-5. <td> 01/21/2019 [place] [Moles/volume] 1 02:15</td><td> [place] in Serum or mEq/L Potassium-Serum Health Care Plasma </td><td> [facility] 4.1
(3.5-5.1) mEq/L </td> Aspartate 15 U/L 4-35 <td> 01/21/2019 [place] aminotransfera U/L 02:15</td><td> County se [Enzymatic AST (SGOT) Health Care activity/volum </td><td> Corporation e] in Serum or Plasma 15
(4-35) U/L </td> Alanine 7 U/L 6-55 <td> 01/21/2019 [place] aminotransfera U/L 02:15</td><td> [place] se [Enzymatic ALT (SGPT) Health Care activity/volum </td><td> Corporation e] in Serum or Plasma 7
(6-55) U/L </td> Creatinine 0.83 mg/dL 0.72-1 <td> 01/21/2019 [place] [Moles/volume] .25 02:15</td><td> [place] in Serum or mg/dL Creatinine. Health Care Plasma </td><td> [facility] 0.83
(0.72-1.25) mg/dL </td> Urea nitrogen 11 mg/dL 6-22 <td> [facility] mg/dL 02:15</td><td> [place] in Blood BUN </td><td> Health Care Corporation 11
(6-22) mg/dL </td> Bilirubin.tota 0.2 mg/dL 0.2-1. <td> [facility] 02:[facility]</td><td> County [Mass/volume] mg/dL Bilirubin - Health Care in Blood Total Corporation </td><td> 0.2
(0.2-1.3) mg/dL </td> Calcium 8.4 mg/dL 8.6-10 <td> 01/21/2019 [place] [Mass/volume] .2 02:15</td><td> [place] in Blood mg/dL Calcium Health Care </td><td><[employer] raph styleCode="Bold "> 8.4 L </paragraph>
(8.6-10.2) mg/dL </td> Albumin 2.6 g/dL 3.4-4. <td> 01/21/2019 [place] [Mass/volume] 8 g/dL 02:15</td><td> County in Serum or Albumin Health Care Plasma </td><td><[employer] raph styleCode="Bold "> 2.6 L </paragraph>
(3.4-4.8) g/dL </td> Proteins - 5.8 g/dL 6.4-8. <td> 01/21/2019 [place] Total 3 g/dL 02:15</td><td> [facility] [place] [facility] Proteins - Health Care [employer] Corporation </td><td><[employer] raph styleCode="Bold "> 5.8 L </paragraph>
(6.4-8.3) g/dL </td> Lipemic index No Lipemia <td> 01/21/2019 [facility] er of Serum or 02:15</td><td> County Plasma Lipemia Index Health Care </td><td> [facility] No Lipemia
</td> Globulin 3.2 gm/dL 2.9-4. <td> 01/21/2019 [place] [Mass/volume] 0 02:15</td><td> County in Serum gm/dL Globulin Health Care </td><td> [facility] 3.2
(2.9-4.0) gm/dL </td> Hemolysis No <td> 01/21/2019 [place] index of Serum Hemolysis 02:15</td><td> County or Plasma Hemolysis Index Health Care </td><td> [facility] No Hemolysis
</td> Anion gap in 7 mEq/L 7-13 <td> 01/21/2019 [place] Serum or mEq/L 02:15</td><td> [facility] Plasma Anion Gap Health Care </td><td> [facility] 7
(7-13) mEq/L </td> Prothrombin 10.7 secs 9.8-12 <td> 01/09/2019 [place] time (PT) .0 03:48</td><td> [facility] secs Prothrombin Health Care Time. [facility] </td><td> 10.7
(9.8-12.0) secs </td> Phosphate 2.6 mg/dL 2.3-4. <td> 01/21/2019 [place] [Mass/volume] 7 02:15</td><td> [facility] in Serum or mg/dL Inorganic Health Care Plasma Phosphorus [facility] </td><td> 2.6
(2.3-4.7) mg/dL </td> Icteric index Non Icteric <td> 01/21/2019 [facility] of Serum or 02:15</td><td> [facility] [place] [facility] Plasma Icteric Index Health [facility] </td><td> [facility] Non Icteric
</td> aPTT panel - 25.6 secs 25.0-3 <td> 01/09/2019 [place] Platelet poor 2.0 03:48</td><td> [facility] plasma secs Partial [facility] Care Thromboplastin [facility] Time </td><td> 25.6
(25.0-32.0) secs </td> Triglyceride 146 mg/dL 30-200 <td> 01/14/2019 [place] [Mass/volume] mg/dL 15:30</td><td> [facility] in Serum or Triglyceride Health Care Plasma </td><td> [facility] 146
(30-200) mg/dL </td> Magnesium 1.8 mg/dL 1.6-2. <td> 01/21/2019 [place] [Mass/volume] 6 02:15</td><td> [facility] in Serum or mg/dL Magnesium Level Health Care Plasma </td><td> [facility] 1.8
(1.6-2.6) mg/dL </td> Glucose 135 mg/dL 70-105 <td> 01/21/2019 [place] [Mass/volume] mg/dL 11:42</td><td> County in Capillary Glucose - Health Care blood by Finger Stick [facility] Glucometer </td><td><frank raph styleCode="Bold "> 135 H </paragraph>
(70-105) mg/dL </td> ID Date Data Source [id number] 01/17/2019 12:00:00 AM EST [facility] [id number] [facility] Name Value Range Interpretation Description Data Sup porting Code Source(s) Document(s ) Abdomen 1 (PACSIMAGE <td> 01/17/2019 [place] View 00:00</td><td> [facility] ) Final Abdomen 1 View Health Care Result </td><td><[employer] Name: TRINA иван SHAHLA Christiansen MRN: styleCode="Ital [id number] Sex: M ics">(PACSIMAGE : 1940 Location: M [...] > Chest PA & (PACSIMAGE <td> 01/08/2019 [place] Lateral 02:39</td><td> [facility] Final Chest PA & Health Care Result [facility] Name: TRINA </td><td>bev Christiansen MRN: raph [id number] Sex: M styleCode="Ital : ics">(PACSIMAGE 1940 Location: Admitting )</paragraph><b Physician: r/>
EMERGENCY Final Result SERVICE Requesting

Physician: Name: TRINA CHIP CALIXTOMIHAI Christiansen Exam: CHEST
PA AND LATERAL 01/08/2019 Sex: [...] the chest. Attending Radiologist:

Caryn Monae Findings: MD Finalizing

Radiologist: Low lung Caryn Monae volumes. [...]

</td > Bladder US (PACSIMAGE <td> 01/20/2019 [place] 13:12</td><td> [facility] ) Final Bladder US Health Care Result </td><td>[employer] Name: TRINA иван SHAHLA Kuldip MRN: styleCode="Ital [id number] Sex: M ics">(PACSIMAGE : 1940 Location: )</paragraph><b [...] Attending Center. Radiologist:

Mikael Mckinley FINDINGS: The MD Finalizing volume of urine Radiologist: within the Mikael Mckinley bladder is 33.3 mL. Transcribed
Date: Bladder wall 01/20/2019 appears 16:02 thickened which Finalized Date: july be 01/20/2019 artifactual 16:04 secondary
to under distention. Other etiologies are not excluded.

IMPRESSION:

Limited exam.

Bladder volume at the time of imaging is 33.3 mL.

Resident Radiologist:
Attending Radiologist: Mkiael Mckinley MD
Finalizing Radiologist: Mikael Mckinley MD
Transcribed Date: 01/20/2019 16:02
Finalized Date: 01/20/2019 16:04

</td > Chest (PACSIMAGE <td> 01/19/2019 [place] Portable 05:00</td><td> [facility] Final Chest Portable Health Care Result </td><td>[employer] Name: иван MENA SHAHLA Kuldip MRN: styleCode="Ital [id number] Sex: M ics">(PACSIMAGE : 1940 Location: M )</paragraph><b Admitting r/>
Physician: Final Result LILIANA RIVERA Requesting

Physician: Name: DEVJONEL NEL SHAHLA Kuldip [facility]
Exam: CHEST PORTABLE Sex: M 01/19/2019
06:10 : 1940 HISTORY: Small Location: M bowel
obstruction. Admitting Shortness of Physician: do RIVERA PROCEDURE:
Portable AP Requesting radiograph Physician: IMPRESSION: NEL LIFE SUPPORT [facility] and MONITORING DEVICES: None

LUNGS and Exam: [...] 09:18

</td > ID Date Data Source [id number] 01/09/2019 12:00:00 AM EST [facility] [id number] Corporation Name Value Range Interpretation Description Data Sup porting Code Source(s) Document(s ) Operative Operative <td> 01/09/2019 [place] Report Report </td><td> County NAME: TRINA, Operative Report Health Ca rosi GALE MR#: </td><td>
< Corporati on [id number] ADMIT br/>

<b DATE: r/> 01/08/2019 Operative Report SURGERY DATE: 01/09/2019

DISCHARGE NAME: TRINA, DATE: SHAHLA SURGEON:
MR#: [id number] NUMBER:
ADMIT [id number] DATE: DATE OF 01/08/2019 PROCEDURE:
January 09, SURGERY DATE: 201801/09/2019 ATTENDING
SURGEON: DISCHARGE DATE: Rebeca Guerrero MD
RESIDENTS: SURGEON: Nel
MD Ady BILLING NUMBER: and Jaswinder Ordoñez [id number]

PREOPERATIVE DATE OF DIAGNOSIS: PROCEDURE: Small bowel January 09, 2019 obstruction.

POSTOPERATIVE ATTENDING DIAGNOSIS: SURGEON: Rebeca Guerrero MD obstruction.

PROCEDURES: RESIDENTS: Exploratory Nel laparotomy, MD Ady and lysis of Jaswinder Ordoñez MD adhesions, [...] Signed intubated at the By ANNA
REBECA #[id number] conclusion on 01/13/2019 of the surgery 11:29 ET and was ADY, transferred to NEL the ICU for #[id number] on further 01/12/2019
00:[address] Guerrero was present for duration of the case.

< br/>

DICT: Nel Garsia M.D.
11 54 AM
/HN

===== END OF DOCUMENT / CHANGE LOG FOLLOWS =

Elec. Signed By
REBECA GUERRERO #[id number]
on 01/13/2019 11:29 ET
NEL GARSIA #[id number]
on 01/12/2019 00:26 ET

</td> ID Date Data Source [id number] 01/08/2019 12:18:00 AM EST [facility] [id number] Corporation Name Value Range Interpretation Description Data Source(s ) Supporting Code Document(s ) ABO-Rh Type O POS <td> [place] 01/08/2019 [facility] 00:18</td><td> Care ABO-Rh Type Corporation </td><td> O POS
</td> Antibody NEG <td> [place] Screen 01/08/2019 [facility] 00:18</td><td> Care Antibody Corporation Screen </td><td> NEG
</td> Specimen 01/12/20 <td> [place] expiration 19 23:59 01/08/2019 [facility] date of Blood 00:18</td><td> Care Specimen Corporation Expiration Date </td><td> 01/11/2019 23:59
</td> ID Date Data Source [id number] 12/29/2018 05:43:00 AM EDT [facility] [id number] Corporation Name Value Range Interpretation Description Data Sup porting Code Source(s) Document(s ) Leukocytes 7.2 k/mm3 4.8-10 <td> 12/29/2018 [place] [#/volume] in .8 05:43</td><td> [facility] Blood by k/mm3 WBC </td><td> [facility] Automated count Corporation 7.2
(4.8-10.8) k/mm3 </td> Erythrocytes 5.34 m/mm3 4.70-6 <td> 12/29/2018 [facility] [#/volume] in .10 05:43</td><td> [facility] Blood m/mm3 RBC </td><td> [facility] 5.34
(4.70-6.10) m/mm3 </td> Hematocrit 39.8 % 40.8-4 <td> 12/29/2018 [place] [Volume 6.9 % 05:43</td><td> [facility] Fraction] of HCT [facility] Blood by </td><td><[employer] Automated count raph styleCode="Bold "> 39.8 L </paragraph>
(40.8-46.9) % </td> Hemoglobin 11.3 g/dL 14.0-1 <td> 12/29/2018 [place] [Mass/volume] 8.0 05:43</td><td> [facility] in Blood g/dL [facility] </td><td><[employer] raph styleCode="Bold "> 11.3 L </paragraph>
(14.0-18.0) g/dL </td> Erythrocyte 74.5 fL 80.0-9 <td> 12/29/2018 [place] mean 4.0 fL 05:43</td><td> County corpuscular [facility] volume [Entitic </td><td><frank Corporat ion volume] by raph Automated count styleCode="Bold "> 74.5 L </paragraph>
(80.0-94.0) fL </td> Erythrocyte 21.2 pg 27.0-3 <td> 12/29/2018 [place] mean 1.5 pg 05:43</td><td> [facility] corpuscular [facility] hemoglobin </td><td><frank Corporation [Entitic mass] raph by Automated styleCode="Bold count "> 21.2 L </paragraph>
(27.0-31.5) pg </td> Erythrocyte 18.6 % 11.5-1 <td> 12/29/2018 [place] distribution 4.5 % 05:43</td><td> County width [Entitic RDW Health Care volume] by </td><td><frank Corporation Automated count raph styleCode="Bold "> 18.6 H </paragraph>
(11.5-14.5) % </td> Platelet mean 10.7 fL 9.8-12 <td> 12/29/2018 [facility] r volume [Entitic .8 fL 05:43</td><td> County volume] in MPV </td><td> Health Care Blood by Corporation Automated count 10.7
(9.8-12.8) fL </td> Erythrocyte 28.4 % 32.0-3 <td> 12/29/2018 [place] mean 6.0 % 05:43</td><td> [facility] corpuscular [facility] hemoglobin </td><td><frank CareOne concentration raph [Mass/volume] styleCode="Bold in Blood from "> Fetus by 28.4 Automated count L </paragraph>
(32.0-36.0) % </td> Platelets 273 k/mm3 160-41 <td> 12/29/2018 [place] [#/volume] in 0 05:43</td><td> County Blood by k/mm3 Platelet Count Health Care Automated count </td><td> [facility] 273
(160-410) k/mm3 </td> Sodium 138 mEq/L 135-14 <td> 12/29/2018 [place] [Moles/volume] 5 05:43</td><td> County in Serum or mEq/L Sodium-Serum Health Care Plasma </td><td> [facility] 138
(135-145) mEq/L </td> Glucose 144 mg/dL 70-105 <td> 12/29/2018 [place] [Mass/volume] mg/dL 05:43</td><td> County in Blood Glucose-Serum Health Care </td><td><[employer] raph styleCode="Bold "> 144 H </paragraph>
(70-105) mg/dL </td> Carbon dioxide, 28 mEq/L 22-30 <td> 12/29/2018 [facility] total mEq/L 05:43</td><td> [facility] [Moles/volume] CO2 </td><td> Health Car e in Serum or Corporation Plasma 28
(22-30) mEq/L </td> Chloride 101 mEq/L 98-107 <td> 12/29/2018 [place] [Moles/volume] mEq/L 05:43</td><td> County in Serum or Chloride Health Care Plasma </td><td> [facility] 101
(98-107) mEq/L </td> Potassium 3.9 mEq/L 3.5-5. <td> 12/29/2018 [place] [Moles/volume] 1 05:43</td><td> County in Serum or mEq/L Potassium-Serum Health Care Plasma </td><td> [facility] 3.9
(3.5-5.1) mEq/L </td> Urea nitrogen 26 mg/dL 6-22 <td> 12/29/2018 [facility] r [Mass/volume] mg/dL 05:43</td><td> County in Blood BUN Health Care </td><td><[employer] raph styleCode="Bold "> 26 H </paragraph>
(6-22) mg/dL </td> Alanine 12 U/L 6-55 <td> 12/26/2018 [place] aminotransferas U/L 06:31</td><td> County e [Enzymatic ALT (SGPT) Health Care activity/volume </td><td> [facility]One ] in Serum or Plasma 12
(6-55) U/L </td> Creatinine 1.25 mg/dL 0.72-1 <td> 12/29/2018 [place] [Moles/volume] .25 05:43</td><td> County in Serum or mg/dL Creatinine. Health Care Plasma </td><td> [facility] 1.25
(0.72-1.25) mg/dL </td> Aspartate 12 U/L 4-35 <td> 12/26/2018 [place] aminotransferas U/L 06:31</td><td> County e [Enzymatic AST (SGOT) Health Care activity/volume </td><td> [facility] ] in Serum or Plasma 12
(4-35) U/L </td> Bilirubin.total 0.2 mg/dL 0.2-1. <td> 12/26/2018 [facility] [Mass/volume] 3 06:31</td><td> County in Blood mg/dL Bilirubin - Health Care Total Corporation </td><td> 0.2
(0.2-1.3) mg/dL </td> Albumin 3.3 g/dL 3.4-4. <td> 12/26/2018 [place] [Mass/volume] 8 g/dL 06:31</td><td> County in Serum or Albumin Health Care Plasma </td><td><frank [facility]One raph styleCode="Bold "> 3.3 L </paragraph>
(3.4-4.8) g/dL </td> Calcium 8.7 mg/dL 8.6-10 <td> 12/29/2018 [place] [Mass/volume] .2 05:43</td><td> County in Blood mg/dL Calcium Health Care </td><td> [facility] 8.7
(8.6-10.2) mg/dL </td> Proteins - 6.0 g/dL 6.4-8. <td> 12/26/2018 [place] Total 3 g/dL 06:31</td><td> [facility] Proteins - Health Care Total Corporation </td><td><frank raph styleCode="Bold "> 6.0 L </paragraph>
(6.4-8.3) g/dL </td> Globulin 2.7 gm/dL 2.9-4. <td> 12/26/2018 [place] [Mass/volume] 0 06:31</td><td> [facility] in Serum gm/dL Globulin Health Care </td><td><frank Corporation raph styleCode="Bold "> 2.7 L </paragraph>
(2.9-4.0) gm/dL </td> Hemolysis index No <td> 12/29/2018 [facility] of Serum or Hemolysis 05:43</td><td> [facility] Plasma Hemolysis Index Health [facility] </td><td> [facility] No Hemolysis
</td> Anion gap in 9 mEq/L 7-13 <td> 12/29/2018 [place] Serum or Plasma mEq/L 05:43</td><td> [facility] Anion Gap Health Care </td><td> [facility] 9
(7-13) mEq/L </td> Lipemic index No Lipemia <td> 12/29/2018 [facility] er of Serum or 05:43</td><td> [facility] Plasma Lipemia Index Health Care </td><td> [facility] No Lipemia
</td> Icteric index Not <td> 12/29/2018 [facility] r of Serum or Icteric 05:43</td><td> [facility] Plasma Icteric Index Health Care </td><td> [facility] Not Icteric
</td> aPTT panel - 25.2 secs 25.0-3 <td> 12/26/2018 [place] Platelet poor 2.0 06:31</td><td> [facility] plasma secs Partial Health Care Thromboplastin Corporation Time </td><td> 25.2
(25.0-32.0) secs </td> Prothrombin 10.4 secs 9.8-12 <td> 12/26/2018 [place] time (PT) .0 06:31</td><td> [facility] secs Prothrombin Health Care Time. Corporation </td><td> 10.4
(9.8-12.0) secs </td> Protein Negative <td> 12/25/2018 [place] [Presence] in 18:00</td><td> [facility] Urine by Protein Health Care Automated test Qualitative Corporation strip </td><td> Negative
(NEGATIVE) </td> Specific 1.011 {} 1.000- <td> 12/25/2018 [place] gravity of 1.035 18:00</td><td> [facility] Urine by Test Specific Health Care strip [employer] [facility] </td><td> 1.011
(1.000-1.035) </td> Appearance of Clear <td> 12/25/2018 [facility] r Urine 18:00</td><td> [facility] Appearance Health Care </td><td> Corporation Clear
(CLEAR) </td> Urobilinogen 0.2 mg/dL 0.0-2. <td> 12/25/2018 [place] [Presence] in 0 18:00</td><td> [facility] Urine by mg/dL Urobilinogen Health Care Automated test </td><td> Corporation strip 0.2
(0.0-2.0) mg/dL </td> Nitrite Negative <td> 12/25/2018 [place] [Presence] in 18:00</td><td> [facility] Urine by Test Nitrites Health Care strip </td><td> Corporation Negative
(NEGATIVE) </td> Leukocyte 1+ <td> 12/25/2018 [place] esterase 18:00</td><td> County [Presence] in Leukocytes Health Care Urine by Test Esterase Corporation strip </td><td><frank raph styleCode="Bold "> 1+ * AB </paragraph>
(NEGATIVE) </td> Glucose Negative <td> 12/25/2018 [place] [Presence] in 18:00</td><td> [facility] Urine by Test Glucose_ Health Care strip </td><td> Corporation Negative
(NEGATIVE) </td> Leukocytes 4 /HPF 0-5 <td> 12/25/2018 [place] [Presence] in /HPF 18:00</td><td> [facility] Urine by WBC </td><td> Health Care Automated [facility] 4
(0-5) /HPF </td> Bacteria NONE SEEN <td> 12/25/2018 [place] [#/area] in 18:00</td><td> [facility] Urine sediment Bacteria Health Care by Microscopy </td><td> [facility] high power field NONE SEEN
(NONE) /HPF </td> Erythrocytes 1 /HPF 0-2 <td> 12/25/2018 [place] [#/area] in /HPF 18:00</td><td> [facility] Urine sediment RBC </td><td> Health Car e by Automated [facility] count 1
(0-2) /HPF </td> Epithelial RARE <td> 12/25/2018 [place] cells [#/area] <= FEW 18:00</td><td> [facility] in Urine Epithelial Health Care sediment by [employer] Automated count </td><td> RARE
/LPF
<= FEW

/LPF </td> Glucose 160 mg/dL 70-105 <td> 01/02/2019 [place] [Mass/volume] mg/dL 11:24</td><td> [facility] in Capillary Glucose - Health Care blood by Finger Stick [facility] Glucometer </td><td><frank raph styleCode="Bold "> 160 H </paragraph>
(70-105) mg/dL </td> Mucous RARE <td> 12/25/2018 [place] <= FEW 18:00</td><td> [facility] Mucous Health Care </td><td> Corporation RARE
/LPF
<= FEW

/LPF </td> ID Date Data Source [id number] 12/25/2018 12:00:00 AM EDT [facility] [id number] Corporation Name Value Range Interpretation Description Data Sup porting Code Source(s) Document(s ) Glucose [place] <td> 12/25/2018 [place] [[facility] </td><td> [facility]] in DISCHARGE Discharge Health Care Capillary SUMMARY Summary Carmine blood by NAME: TRINA </td><td>
< Glucometer SHAHLA br/>

< MR#: [id number] br/>

< ADMIT DATE: br/> 12/20/2018 [facility] SUMMARY
COMPLETION DISCHARGE DATE: SUMMARY 12/25/2018
BILLING NAME: TRINA NUMBER: SHAHLA [id number]
[id number] MR#: [id number] Attending
Physician:[id number] ADMIT DATE: 53 NAV THORPE 12/20/2018 [facility] Rehab to
[facility] Hospital SUMMARY [id number] COMPLETION Written and DATE: Reviewed 12/25/2018 by:[id number]
NAV THORPE BILLING NUMBER: REASON FOR [id number] HOSPITALIZATIO
N: [id number] Dizziness,
UTI, Pneumonia Attending DISCHARGE Physician:[id number] SUMMARY 3 NAV THORPE DEPARTMENT OF
MEDICINE, [facility] Rehab to [facility],
[place], [place] [address] I. General
Information Written and Name and Title Reviewed of person by:[id number] SHAH, preparing the NAV summary: Nav
Ila II. REASON FOR Diagnosis HOSPITALIZATION Primary : Diagnosis:
UTI Dizziness, UTI, Secondary Pneumonia Diagnoses:
Pneumonia DISCHARGE Procedures: SUMMARY CT Chest,
Head, Echo DEPARTMENT OF III. Hospital MEDICINE, Course [facility], Dizziness/Fall [facility] Reason for admission:

[facility] [facility] Information course:
Mr. Mena is a Name and Title 78 y/o M with of person hx of COPD on preparing the 3L Home O2, summary: Nav Hypertension, Thorpe IDDM,

Diastolic II. Diagnosis Heart Fialure,
CAD [...] day at this Diastolic Heart time. Please Fialure, CAD monitor his s.p PCI, fluid status [...] Patient was Information To continued on Contact [facility] Aspirin, Main Hospital Plavix, metoprolol, Medical
Records (233) ARB, at this [phone] time. Medical

Attendings IDDM: Patient Office ([phone]) was continued [phone] on his home Exam: CT dose of [...]

throughout the Information To lungs with Contact [facility] multiple
tree-in-bud [facility] Hospital opacities throughout
the left upper Medical lobe. There is Records ([phone]) focal airspace [phone] disease within
the left Medical lower lobe Attendings consistent Office ([phone]) with [phone] developing
left lower Exam: CT THORAX lobe [...] included focal airspace within the disease within [id number]. the Post
left cholecystectom lower lobe y. [...] normal. within There is no
the aortic [id number]. stenosis. Post Trivial mitral cholecystectomy valve . [...] is recommended Signed By given the NAV THORPE nodular #[id number] on appearance of 01/01/2019 some of the [...] LOG FOLLOWS ==

Elec. Signed By
NAV THORPE #[id number]
on 01/01/2019 11:45 ET

</td> ID Date Data Source [id number] 12/24/2018 06:54:00 AM EDT [facility] [id number] Corporation Name Value Range Interpretation Description Data Sup porting Code Source(s) Document(s ) Leukocytes 8.1 k/mm3 4.8-10 <td> 12/24/2018 [place] [#/volume] in .8 06:54</td><td> [facility] Blood by k/mm3 WBC </td><td> Health Care Automated count Corporation 8.1
(4.8-10.8) k/mm3 </td> Erythrocytes 5.35 m/mm3 4.70-6 <td> 12/24/2018 [facility] [#/volume] in .10 06:54</td><td> [facility] Blood m/mm3 RBC </td><td> [facility] 5.35
(4.70-6.10) m/mm3 </td> Hemoglobin 11.2 g/dL 14.0-1 <td> 12/24/2018 [place] [Mass/volume] 8.0 06:54</td><td> [facility] in Blood g/dL [facility] </td><td><[employer] raph styleCode="Bold "> 11.2 L </paragraph>
(14.0-18.0) g/dL </td> Erythrocyte 20.9 pg 27.0-3 <td> 12/24/2018 [place] mean 1.5 pg 06:54</td><td> [facility] corpuscular [facility] hemoglobin </td><td><[employer] [Entitic mass] raph by Automated styleCode="Bold count "> 20.9 L </paragraph>
(27.0-31.5) pg </td> Erythrocyte 18.5 % 11.5-1 <td> 12/24/2018 [place] distribution 4.5 % 06:54</td><td> [facility] width [Entitic RDW Health Care volume] by </td><td><[employer] Automated count raph styleCode="Bold "> 18.5 H </paragraph>
(11.5-14.5) % </td> Platelet mean 9.8 fL 9.8-12 <td> 12/24/2018 [facility] r volume [Entitic .8 fL 06:54</td><td> County volume] in MPV </td><td> Health Care Blood by Corporation Automated count 9.8
(9.8-12.8) fL </td> Erythrocyte 75.3 fL 80.0-9 <td> 12/24/2018 [place] mean 4.0 fL 06:54</td><td> [facility] corpuscular [facility] volume [Entitic </td><td><frank Corporat ion volume] by raph Automated count styleCode="Bold "> 75.3 L </paragraph>
(80.0-94.0) fL </td> Hematocrit 40.3 % 40.8-4 <td> 12/24/2018 [place] [Volume 6.9 % 06:54</td><td> County Fraction] of HCT Health Care Blood by </td><td><[employer] Automated count raph styleCode="Bold "> 40.3 L </paragraph>
(40.8-46.9) % </td> Erythrocyte 27.8 % 32.0-3 <td> 12/24/2018 [place] mean 6.0 % 06:54</td><td> [facility] corpuscular [facility] hemoglobin </td><td><[employer] concentration raph [Mass/volume] styleCode="Bold in Blood from "> Fetus by 27.8 Automated count L </paragraph>
(32.0-36.0) % </td> Monocytes/Leuko 14.1 % 0.0-11 <td> 12/24/2018 [facility] cytes [Pure .0 % 06:54</td><td> County number Monocytes. Health Care fraction] in </td><td><[employer] Blood by raph Automated count styleCode="Bold "> 14.1 H </paragraph>
(0.0-11.0) % </td> Basophils 0.4 % 0.0-2. <td> 12/24/2018 [place] [#/volume] in 0 % 06:54</td><td> [facility] Blood by Basophils [facility] Automated count </td><td> [facility] 0.4
(0.0-2.0) % </td> Lymphocytes 17.6 % 16.0-5 <td> 12/24/2018 [place] [#/volume] in 0.0 % 06:54</td><td> [facility] Blood by Lymphocytes [facility] Automated count </td><td> [facility] 17.6
(16.0-50.0) % </td> Neutrophils [#] 65.6 % 34.0-7 <td> 12/24/2018 [facility] in Body fluid 6.0 % 06:54</td><td> [facility] by Manual count Neutrophils [facility] </td><td> [facility] 65.6
(34.0-76.0) % </td> Platelets 296 k/mm3 160-41 <td> 12/24/2018 [place] [#/volume] in 0 06:54</td><td> [facility] Blood by k/mm3 Platelet Count [facility] Automated count </td><td> [facility] 296
(160-410) k/mm3 </td> Immature 0.4 % 0.0-0. <td> 12/24/2018 [place] granulocytes/10 5 % 06:54</td><td> [facility] 0 leukocytes in IG% </td><td> [facility] Blood by [facility] Automated count 0.4
(0.0-0.5) %
The IG fraction represents metamyelocytes, myelocytes and/or
promyelocytes and is only reported as part of the automated
differential when found at a percentage of less than 6.
If higher than 6%, a manual differential will be performed.

(0.0-0.5) % </td> Basophils+Eosin 1.9 % 0.0-5. <td> 12/24/2018 [facility] ophils+Monocyte 0 % 06:54</td><td> County s [#/volume] in Eosinophils Health Care Blood by </td><td> [facility] Automated count 1.9
(0.0-5.0) % </td> Ovalocytes Moderate <td> 12/24/2018 [place] [Presence] in 06:54</td><td> [facility] Blood by Light Ovalocytes Health Care microscopy </td><td> [facility] Moderate
</td> Glucose 208 mg/dL 70-105 <td> 12/24/2018 [place] [Mass/volume] mg/dL 06:54</td><td> [facility] in Blood Glucose-Serum Health Care </td><td><frank Corporation raph styleCode="Bold "> 208 H </paragraph>
(70-105) mg/dL </td> Sodium 137 mEq/L 135-14 <td> 12/24/2018 [place] [Moles/volume] 5 06:54</td><td> [facility] in Serum or mEq/L Sodium-Serum Health Care Plasma </td><td> [facility] 137
(135-145) mEq/L </td> Anisocytosis Slight <td> 12/24/2018 [place] [Presence] in 06:54</td><td> [facility] Blood by Light Anisocytosis Health Care microscopy </td><td> [facility] Slight
</td> Potassium 3.8 mEq/L 3.5-5. <td> 12/24/2018 [place] [Moles/volume] 1 06:54</td><td> [facility] in Serum or mEq/L Potassium-Serum Health Care Plasma </td><td> [facility] 3.8
(3.5-5.1) mEq/L </td> Poikilocytosis Slight <td> 12/24/2018 [facility] er [Presence] in 06:54</td><td> [facility] Blood by Light Poikilocytosis Health Car e microscopy </td><td> [facility] Slight
</td> Calcium 8.9 mg/dL 8.6-10 <td> 12/24/2018 [place] [Mass/volume] .2 06:54</td><td> County in Blood mg/dL Calcium Health Care </td><td> [facility] 8.9
(8.6-10.2) mg/dL </td> Anion gap in 10 mEq/L 7-13 <td> 12/24/2018 [place] Serum or Plasma mEq/L 06:54</td><td> [facility] Anion Gap Health Care </td><td> [facility] 10
(7-13) mEq/L </td> Chloride 99 mEq/L 98-107 <td> 12/24/2018 [place] [Moles/volume] mEq/L 06:54</td><td> County in Serum or Chloride Health Care Plasma </td><td> [facility] 99
(98-107) mEq/L </td> Creatinine 1.27 mg/dL 0.72-1 <td> 12/24/2018 [place] [Moles/volume] .25 06:54</td><td> County in Serum or mg/dL Creatinine. Health Care Plasma </td><td><[employer] raph styleCode="Bold "> 1.27 H </paragraph>
(0.72-1.25) mg/dL </td> Carbon dioxide, 28 mEq/L 22-30 <td> 12/24/2018 [facility] total mEq/L 06:54</td><td> [facility] [Moles/volume] CO2 </td><td> Health Car e in Serum or [facility] Plasma 28
(22-30) mEq/L </td> Urea nitrogen 27 mg/dL 6-22 <td> 12/24/2018 [facility] r [Mass/volume] mg/dL 06:54</td><td> County in Blood BUN Health Care </td><td><[employer] raph styleCode="Bold "> 27 H </paragraph>
(6-22) mg/dL </td> Phosphate 2.7 mg/dL 2.3-4. <td> 12/21/2018 [place] [Mass/volume] 7 05:29</td><td> County in Serum or mg/dL Inorganic Health Care Plasma Phosphorus [facility] </td><td> 2.7
(2.3-4.7) mg/dL </td> Hemolysis index No <td> 12/24/2018 [facility] of Serum or Hemolysis 06:54</td><td> [facility] Plasma Hemolysis Index Health [facility] </td><td> [facility] No Hemolysis
</td> Appearance of Slightly-C <td> 12/20/2018 [facility] er Urine loudy 13:40</td><td> [facility] Appearance [facility] </td><td><frank Corporation raph styleCode="Bold "> Slightly-Cloudy * AB </paragraph>
(CLEAR) </td> Icteric index Non <td> 12/24/2018 [facility] r of Serum or Icteric 06:54</td><td> [facility] Plasma Icteric Index [facility] </td><td> [facility] Non Icteric
</td> Lipemic index No Lipemia <td> 12/24/2018 [facility] er of Serum or 06:54</td><td> [facility] Plasma Lipemia Index [facility] </td><td> [facility] No Lipemia
</td> Specific 1.006 {} 1.000- <td> 12/20/2018 [place] gravity of 1.035 13:40</td><td> [facility] Urine by Test Specific Health Care strip [employer] [facility] </td><td> 1.006
(1.000-1.035) </td> Urobilinogen 0.2 mg/dL 0.0-2. <td> 12/20/2018 [place] [Presence] in 0 13:40</td><td> [facility] Urine by mg/dL Urobilinogen Health Care Automated test </td><td> Corporation strip 0.2
(0.0-2.0) mg/dL </td> Glucose Negative <td> 12/20/2018 [place] [Presence] in 13:40</td><td> [facility] Urine by Test Glucose_ Health Care strip </td><td> Corporation Negative
(NEGATIVE) </td> Protein Negative <td> 12/20/2018 [place] [Presence] in 13:40</td><td> [facility] Urine by Protein Health Care Automated test [employer] strip </td><td> Negative
(NEGATIVE) </td> Leukocyte 3+ <td> 12/20/2018 [place] esterase 13:40</td><td> [facility] [Presence] in Leukocytes Health Care Urine by Test Esterase Corporation strip </td><td><frank raph styleCode="Bold "> 3+ * AB </paragraph>
(NEGATIVE) </td> Leukocytes 98 /HPF 0-5 <td> 12/20/2018 [place] [Presence] in /HPF 13:40</td><td> [facility] Urine by WBC Health Care Automated </td><td><frank Corporation raph styleCode="Bold "> 98 * AB </paragraph>
(0-5) /HPF </td> Nitrite Negative <td> 12/20/2018 [place] [Presence] in 13:40</td><td> [facility] Urine by Test Nitrites Health Care strip </td><td> Corporation Negative
(NEGATIVE) </td> Glucose 199 mg/dL 70-105 <td> 12/25/2018 [place] [Mass/volume] mg/dL 07:51</td><td> County in Capillary Glucose - Health Care blood by Finger Stick [employer] Glucometer </td><td><frank raph styleCode="Bold "> 199 H </paragraph>
(70-105) mg/dL </td> Magnesium 2.5 mg/dL 1.6-2. <td> 12/24/2018 [place] [Mass/volume] 6 06:54</td><td> County in Serum or mg/dL Magnesium Level Health Care Plasma </td><td> Corporation 2.5
(1.6-2.6) mg/dL </td> Epithelial RARE <td> 12/20/2018 [place] cells [#/area] <= FEW 13:40</td><td> County in Urine Epithelial Health Care sediment by [employer] Automated count </td><td> RARE
/LPF
<= FEW

/LPF </td> Erythrocytes 4 /HPF 0-2 <td> 12/20/2018 [place] [#/area] in /HPF 13:40</td><td> County Urine sediment RBC Health Care by Automated </td><td><frank Corporation count raph styleCode="Bold "> 4 * AB </paragraph>
(0-2) /HPF </td> Bacteria FEW <td> 12/20/2018 [place] [#/area] in 13:40</td><td> County Urine sediment Bacteria [...] 19.0000 {} Normal (applies to 19.0000 {} [place] rate Set non-numeric results) Coun ty [facility] Care Corporati on Heart rate 77.0000 {} Normal (applies to 77.0000 {} [place] g[facility]ine non-numeric results) Coun ty [facility] Corporati on Body temperature 96.6000 {} Normal (applies to 96.6000 {} [place] non-numeric results) Coun ty [facility] Care Corporati [...] 17.0000 {} Normal (applies to 17.0000 {} [place] rate Set non-numeric results) Coun ty [facility] Corpor[facility] on Heart rate 58.0000 {} Normal (applies to 58.0000 {} [place] geraldine non-numeric results) Coun ty [facility] Corporati on Body temperature 97.3000 {} Normal (applies to 97.3000 {} [place] non-numeric results) Coun ty [facility] Care Corporati [...] 18.0000 {} Normal (applies to 18.0000 {} [place] rate Set non-numeric results) Coun ty [facility] Corpor[facility] on Heart rate 64.0000 {} Normal (applies to 64.0000 {} [place] geraldine non-numeric results) Coun ty [facility] Corporati on Body temperature 97.0000 {} Normal (applies to 97.0000 {} [place] non-numeric results) Coun ty [facility] Care Corporati [...] 17.0000 {} Normal (applies to 17.0000 {} [place] rate Set non-numeric results) Coun ty [facility] Care Corporati on Heart rate 66.0000 {} Normal (applies to 66.0000 {} [place] g[facility]ine non-numeric results) Coun ty [facility] Corporati on Body temperature 97.0000 {} Normal (applies to 97.0000 {} [place] non-numeric results) Coun ty Health Care Corporati [...] Care Corporati on ID Date Data Source [id number] 01/09/2019 11:39:32 AM EST [facility] ([employer] [facility]) Name Value Range Interpretation Code Description Data Source(s) PAIN LEVEL 0 0 [facility] ([employer] [facility] [employer]) BLOOD SUGAR 142 mg/dL 142 mg/dL [facility] ([employer] [facility] [employer]) BLOOD SUGAR 205 mg/dL 205 mg/dL [facility] ([employer] [facility] [employer]) PAIN LEVEL 0 0 [facility] ([employer] [facility] [employer] [facility]) PAIN LEVEL 4 4 [facility] ([employer] [facility] [employer] [facility]) PAIN LEVEL 0 0 [facility] ([employer] [facility] [employer]) BLOOD SUGAR 200 mg/dL 200 mg/dL [facility] ([facility] [employer] [facility] [employer] [facility]) PAIN LEVEL 2 2 [facility] ([employer] [facility] [employer] [facility]) PAIN LEVEL 0 0 [facility] ([employer] [facility] [employer] [facility]) BLOOD SUGAR 224 mg/dL 224 mg/dL [facility] ([employer] [facility] [employer]) TEMPERATURE 98.1 F 98.1 F [facility] ([employer] [facility] [employer] [facility]) RESPIRATION 18 rpm 18 rpm [facility] ([employer] [facility] [employer]) PULSE 66 bpm 66 bpm [facility] ([employer] [facility] [employer]) OXYGEN SATURATION 97 % 97 % [facility] RE ([employer] [facility] [employer]) PAIN LEVEL 0 0 [facility] ([facility] [employer]) DIASTOLIC BLOOD 79 mmHg 79 mmHg [facility] ([facility] [employer]) SYSTOLIC BLOOD 145 mmHg 145 mmHg [facility] ([facility] [employer]) BLOOD SUGAR 256 mg/dL 256 mg/dL [facility] ([facility] [employer] [facility] [employer]) WEIGHT 344 lbs 344 lbs [facility] ([facility] [facility] [employer]) DIASTOLIC BLOOD 80 mmHg 80 mmHg [facility] ([facility] [employer]) SYSTOLIC BLOOD 174 mmHg 174 mmHg [facility] ([facility] [employer]) TEMPERATURE 96.8 F 96.8 F [facility] ([facility] [employer]) PAIN LEVEL 0 0 [facility] ([facility] [employer]) WEIGHT 342.1 lbs 342.1 lbs [facility] ([facility] [employer]) HEIGHT 74 in 74 in [facility] ([facility] [employer]) BLOOD SUGAR 130 mg/dL 130 mg/dL [facility] ([facility] [employer]) Patient Treatment Plan of Care Planned Activity Planned Date Details Description Data Source (s) Tdap (Adacel) Inj 07/19/2019 07:14:53 [facility] EDT Health Care Cor poration Lidocaine 1% ; Give 07/19/2019 05:52:48 [facility] EDT Health Care Cor poration Zofran 4mg/2mL (Onda 05/22/2019 01:04:55 [facility] EDT Health Care Cor poration 0.9% NaCl IV 05/22/2019 01:04:55 [facility] EDT Health Care Cor poration Gastroview PO Contra 05/22/2019 01:04:55 [facility] EDT Health Care Cor poration Zofran 4mg/2mL (Onda 01/08/2019 03:26:31 [facility] EST Health Care Cor poration 0.9% NaCl IV 01/08/2019 01:58:07 [facility] EST Health Care Cor poration Gastroview PO Contra 01/08/2019 01:44:50 [facility] Cor poration Solu-Medrol (Methylp 12/18/2018 01:33:41 [facility] ED Health Care Cor poration Diazepam 10mg / 2 mL 12/18/2018 10:37:19 [facility] Care Cor poration Ketorolac 30 mg / mL 12/18/2018 10:37:10 [facility] Cor poration Furosemide (Lasix) I 12/18/2018 09:03:35 [facility] Cor poration DuoNeb 0.5/3mg/3mL 12/18/2018 09:03:35 [facility] Cor poration
[2019-12-12 21:07] LABS: ANISOCYTOSIS 2+
[2019-12-12] MEDS ORDERED: LEVALBUTEROL HCL 0.63 MG/3 ML VIAL.NEB. IH PRN (21:11)
[2019-12-12] MEDS ORDERED: HEPARIN NA (PORCINE) 5,000 UNITS/ML 1ML VIAL SQ SCH (21:15)
[2019-12-12] MEDS ORDERED: POTASSIUM CHLORIDE TABS 20 MEQ TABLET.ER (FP) PO ONE ×2 (21:29→22:09)
[2019-12-12] MEDS ORDERED: cefTRIAXone SODIUM 1 GM VIAL ONE (22:12)
[2019-12-12] MEDS ORDERED: KCL 10 MEQ IVPB 10 MEQ/100 ML INFUS.BAG IVPB ONE (22:12)
[2019-12-12] MEDS: CEFTRIAXONE 1 GM in DEXTROSE 5%-WATER - 50 ML IVPB SCH (22:24)
[2019-12-12] MEDS ORDERED: ENOXAPARIN NA (PORCINE) 40 MG/0.4 ML DISP.SYRIN SQ ONE (22:25)
[2019-12-12] MEDS ORDERED: ENOXAPARIN NA (PORCINE) 40 MG/0.4 ML DISP.SYRIN SQ SCH (22:30)
--- NOTE | 2019-12-12 23:10 | HP ---
CHIEF COMPLAINT: PCP: HISTORY OF PRESENT ILLNESS: Pt is a 79 yo M with PMHx of COPD (on 3L NC at home), CHF, HTN, CAD s/p stents x3, IDDM, Parkinson's, BPH presenting to the ED for SOB, worsening hypoxia,and cough. PT states this has been ongoing since yesterday, had been using inhaler with some improvement until the patient could no longer find the inhaler and symptoms worsened. Pt states his O2 sats dropped to 78-82% during this time. Per ED note, in contact with daughter, and she states there was an O2 sat of ~55%. Pt states he has also been having cough with productive yellow sputum since this started. Pt is A&O x 3, however slightly confused. Pt admits to chronic orthopnea as well. Pt denies fever, chills, chest pain, palpitations, nausea/vomiting. ER course was notable for: (1) CXR showing congestive changes, and possible RLL infiltrate (2) Decadron 10 mg PO + 10mg IV, rocephin, albuterol (3) Lasix, calcium gluconate Recent Travel: denies PAST MEDICAL HISTORY: as stated in HPI PAST SURGICAL HISTORY: hernia repair x2 cholecystectomy appendectomy Social History: Smoking: Quit 25 years ago Alcohol: Denies Drugs: Denies Allergies No Known Allergies Allergy (Verified 12/12/19 14:19) HOME MEDICATIONS: Home Medications Medication Instructions Recorded Cetirizine HCl [Zyrtec] 10 mg PO DAILY 12/12/19 Furosemide [Lasix] 80 mg PO DAILY 12/12/19 Pantoprazole Sodium 40 mg PO DAILY 12/12/19 REVIEW OF SYSTEMS CONSTITUTIONAL: Absent: fever, chills, diaphoresis, generalized weakness, malaise, loss of appetite, weight change HEENT: Absent: rhinorrhea, nasal congestion, throat pain, throat swelling, difficulty swallowing, mouth swelling, ear pain, eye pain, visual changes CARDIOVASCULAR: Absent: chest pain, syncope, palpitations, irregular heart rate, lightheadedness, peripheral edema RESPIRATORY: SOB, wheezing, orthopnea, cough productive with sputum Absent: stridor, hemoptysis GASTROINTESTINAL: Absent: abdominal pain, abdominal distension, nausea, vomiting, diarrhea, constipation, melena, hematochezia GENITOURINARY: Absent: dysuria, frequency, urgency, hesitancy, hematuria, flank pain, genital pain MUSCULOSKELETAL: Absent: myalgia, arthralgia, joint swelling, back pain, neck pain SKIN: chronic venous stasis changes on L leg Absent: rash, itching, pallor HEMATOLOGIC/IMMUNOLOGIC: Absent: easy bleeding, easy bruising, lymphadenopathy, frequent infections ENDOCRINE: Absent: unexplained weight gain, unexplained weight loss, heat intolerance, cold intolerance NEUROLOGIC: Absent: headache, focal weakness or paresthesias, dizziness, unsteady gait, seizure, mental status changes, bladder or bowel incontinence PSYCHIATRIC: Absent: anxiety, depression, suicidal or homicidal ideation, hallucinations. PHYSICAL EXAMINATION Vital Signs - 24 hr 12/12/19 12/12/19 12/12/19 13:52 17:39 18:48 Temperature 98.2 F Pulse Rate 64 Pulse Rate [ 75 70 Right Radial] Respiratory 18 19 Rate Blood Pressure 117/54 L Blood Pressure [Right Arm] O2 Sat by Pulse 96 95 96 Oximetry (%) 12/12/19 20:50 Temperature Pulse Rate Pulse Rate [ 20 L Right Radial] Respiratory 22 H Rate Blood Pressure Blood Pressure 128/71 [Right Arm] O2 Sat by Pulse 98 Oximetry (%) GENERAL: Awake, alert, and fully oriented, in no acute distress. HEAD: Normal with no signs of trauma. EYES: Pupils equal, round and reactive to light, extraocular movements intact, sclera anicteric, conjunctiva clear. No lid lag. EARS, NOSE, THROAT: Ears normal, nares patent, oropharynx clear without exudates. Moist mucous membranes. NECK: Normal range of motion, supple without lymphadenopathy, JVD, or masses. LUNGS: Breath sounds equal. Large body habitus, but wheezes and crackles at bases appreciated. HEART: Regular rate and rhythm, normal S1 and S2 without murmur, rub or gallop. ABDOMEN: Soft, nontender, not distended, normoactive bowel sounds, no guarding, no rebound, no masses. No hepatomegaly or splenomegaly. MUSCULOSKELETAL: Normal range of motion at all joints. No bony deformities or tenderness. No CVA tenderness. UPPER EXTREMITIES: 2+ pulses, warm, well-perfused. No cyanosis. No clubbing. No peripheral edema. LOWER EXTREMITIES: 2+ pulses, warm, well-perfused. No calf tenderness. 2+ edema bilaterally. CHronic venous stasis changes in L leg. NEUROLOGICAL: Cranial nerves II-XII intact. Normal speech. Normal gait. PSYCHIATRIC: Cooperative. Good eye contact. Appropriate mood and affect. SKIN: Warm, dry, normal turgor, no rashes or lesions noted, normal capillary refill. Laboratory Results - last 24 hr 12/12/19 12/12/19 10:28 10:28 WBC 6.3 RBC 5.01 Hgb 10.2 L Hct 33.6 L MCV 67.0 L MCH 20.3 L MCHC 30.3 L RDW 20.6 H Plt Count 270 MPV 8.8 Absolute Neuts (auto) 4.6 Neutrophils % 72.1 Lymphocytes % 13.2 Monocytes % 12.4 H Eosinophils % 1.9 Basophils % 0.4 Nucleated RBC % 0 Hypochromia 2+ Poikilocytosis 1+ Anisocytosis 2+ Microcytosis 2+ Schistocytes 1+ Sodium 146 H Potassium 3.4 L Chloride 104 Carbon Dioxide 39 H Anion Gap 3 L BUN 20.8 H Creatinine 1.0 Est GFR (CKD-EPI)AfAm 83.18 Est GFR (CKD-EPI)NonAf 71.77 Random Glucose 97 Calcium 5.6 L* Total Bilirubin 0.2 AST 23 ALT 10 L Alkaline Phosphatase 161 H Creatine Kinase 47 Troponin I < 0.02 Total Protein 6.3 L Albumin 2.5 L ASSESSMENT/PLAN: #COPD vs CHF exacerbation -CXR reviewed; possible infiltrate in RLL, fluid overload; concomitant treatment -Xopenex, symbicort, azithro/rocephin, steroids IV ordered -Lasix 40mg IV daily ordered -BNP ordered -Echo ordered, consulted cardio (Dr. Marrero) -sputum culture sent, productive yellow sputum -Urine legionella and strep pneumo ordered -consulted pulm (Dr. Sheppard) -on 3L NC, desat acutely - ordered CTA to rule out PE #Hypocalcemia -rec'd 2g CaGluc in ED -Oscal -Vit D, Uca, Uphos, PTH ordered -asymptomatic #Anemia -H/H 10.2/33.6; MCV 67 with increased RDW likely 2/2 iron deficiency anemia -Iron panel, ferritin, retic count, LDH -GI consulted (Dr. Barnett) #Hx DM -SSI and BGM #Hx HTN -Lasix 40mg IV daily #Hx Parkinsons -med rec in AM, pt unsure #Hx BPH -med rec in AM, pt unsure #hypokalemia -repleted, recheck in AM FEN No standing fluids Monitor lytes; Ca2+ -Diabetic/sodium controlled diet PPx Lovenox 40mg BID Dispo Admit to tele. Treatment for CHF and COPD. Consulted cardio, pulm, GI. ATTENDING PHYSICIAN STATEMENT I saw and evaluated the patient. I reviewed the resident's note and discussed the case with the resident. I agree with the resident's findings and plan as documented. SUBJECTIVE: OBJECTIVE: ASSESSMENT AND PLAN:
[2019-12-13] MEDS: methylPREDNISolone NA SUCC 40 MG/1 ML VIAL IVPB SCH ×2 (01:06→09:52)
[2019-12-13] MEDS: CALCIUM 250MG/VIT-D 125 UNITS 1 COMBO TABLET PO SCH ×2 (01:15→13:26)
[2019-12-13] MEDS: BUDESONIDE/FORMETEROL FUMARATE 160/4.5 mcg INHALER IH SCH ×3 (01:15→21:05)
[2019-12-13] MEDS: KCL 10 MEQ IVPB 10 MEQ/100 ML INFUS.BAG IVPB SCH ×3 (01:16→02:53)
[2019-12-13 02:05] VITALS: BMI 38.2
[2019-12-13 07:02] LABS: BASO % 0.1 % (0-2.0); HEMATOCRIT 34.5 % (35.4-49); HEMOGLOBIN 10.3 GM/dL (11.7-16.9); LYMPH % 6.6 % (8-40); MCH 20.2 pg (25.7-33.7); MCHC 29.8 g/dl (32.0-35.9); MEAN CELL VOLUME 67.8 fl (80-96); MEAN PLT VOLUME 8.7 fl (7.5-11.1); NEUT % 90.3 % (42.8-82.8); PLATELET COUNT 262 K/MM3 (134-434); RBC 5.09 M/mm3 (4.00-5.60); RDW 20.5 % (11.9-15.9); RETICULOCYTES 1.68 % (0.5-1.5)
[2019-12-13 07:26] LABS: ALBUMIN 2.5 g/dl (3.4-5.0); BILIRUBIN,TOTAL 0.2 mg/dL (0.2-1); BLOOD UREA NITROGEN 17.4 mg/dL (7-18); CALCIUM 8.4 mg/dL (8.5-10.1); MAGNESIUM 2.4 mg/dL (1.8-2.4); PHOSPHOROUS 2.7 mg/dL (2.5-4.9); POTASSIUM 3.8 mmol/L (3.5-5.1); TOT PROT 6.5 g/dl (6.4-8.2)
[2019-12-13] MEDS ORDERED: PNEUMOC 13-VAL CONJ-DIP CRM/PF 0.5 ML DISP.SYRIN IM ONE (08:00)
[2019-12-13] MEDS ORDERED: LEVALBUTEROL HCL 0.63 MG/3 ML VIAL.NEB. IH SCH (08:00)
[2019-12-13] MEDS ORDERED: FLU VACCINE (FLULAVAL) PF 60 MCG/0.5 ML SYRINGE 2020-2021 IM ONE (08:00)
[2019-12-13] MEDS: FUROSEMIDE 100 MG/10 ML INJECTABLE VIAL IVPB SCH ×2 (08:29→14:01)
--- NOTE | 2019-12-13 09:23 | CON.GI ---
Consult Consult Specialty:: coverage fo Dr Diaz - History of Present Illness Chief Complaint: anemia History of Present Illness: CC: anemia Pt is a 79 yo M with PMHx of COPD (on 3L NC at home), CHF, HTN, CAD s/p stents x3, IDDM, Parkinson's, BPH presenting to the ED for SOB, worsening hypoxia,and cough. PT states this has been ongoing since yesterday, had been using inhaler w ith some improvement until the patient could no longer find the inhaler and symptoms worsened. Pt states his O2 sats dropped to 78-82% during this time. Per ED note, in contact with daughter, and she states there was an O2 sat of ~55%. Pt states he has also been having cough with productive yellow sputum since this started. Pt is A&O x 3, however slightly confused. No SOB, abdominal pain, rectal bleeding today Had EGD and colonoscopy in [facility] could not remember how many years ago - Smoking History Smoking history: Unknown if ever smoked Have you smoked in the past 12 months: No Home Medications - Allergies Allergies/Adverse Reactions: Allergies Allergy/AdvReac Type Severity Reaction Status Date / Time No Known Allergies Allergy Verified 12/12/19 14:19 - Home Medications Home Medications: Ambulatory Orders Cetirizine HCl [Zyrtec] 10 mg PO DAILY 12/12/19 Furosemide [Lasix] 80 mg PO DAILY 12/12/19 Pantoprazole Sodium 40 mg PO DAILY 12/12/19 Amlodipine Besylate 5 mg PO DAILY 12/13/19 Carbidopa-Levodopa 25-100 Tab 25 - 100 mg PO DAILY 12/13/19 Cetirizine HCl [Zyrtec] 10 mg PO DAILY 12/13/19 Clopidogrel Bisulfate [Plavix] 75 mg PO DAILY 12/13/19 Combivent Respimat 20-100 Mcg 12/13/19 Duloxetine HCl 60 mg PO BID 12/13/19 Finasteride 5 mg PO DAILY 12/13/19 Gabapentin 600 mg PO DAILY 12/13/19 Isosorbide Mononitrate ER 60 mg PO DAILY 12/13/19 Lantus 26 units SQ HS 12/13/19 Losartan Potassium 25 mg PO DAILY 12/13/19 Metoprolol Succinate 50 mg PO DAILY 12/13/19 Mirtazapine 15 mg PO HS 12/13/19 Novolog 6 unit SQ AC 12/13/19 Ranolazine ER 500 mg PO DAILY 12/13/19 Spiriva 18 mcg IH 12/13/19 Tamsulosin HCl [Flomax] 0.4 mg PO BID 12/13/19 Wellbutrin - 300 mg PO DAILY 12/13/19 Physical Exam-GI Vital Signs: Vital Signs Temperature 97.9 F 12/12/19 22:00 Pulse Rate 80 12/12/19 22:00 Respiratory Rate 20 12/12/19 22:00 Blood Pressure 153/77 12/12/19 22:00 O2 Sat by Pulse Oximetry (%) 96 12/12/19 22:00 Constitutional: Yes: Obese Eyes: Yes: Conjunctiva Clear HENT: Yes: Atraumatic, Tonsillar Exudate Respiratory: Yes: Diminished ...Palpate: Yes: Soft. No: Firm/Rigid, Guarding, Hepatomegaly, Mass, Pulsatile Mass, Splenomegaly, Tenderness Labs: CBC, BMP 12/13/19 06:25 12/13/19 06:25 Problem List - Problems (1) Anemia Assessment/Plan: R> stool guaiac continue PPI gi w/u once medically cleared Code(s): D64.9 - ANEMIA, UNSPECIFIED
[2019-12-13] MEDS ORDERED: cefTRIAXone SODIUM 1 GM VIAL ONE (09:31)
[2019-12-13] MEDS ORDERED: DEXTROSE 5%-WATER - 50 ML IVPB ONE (09:31)
[2019-12-13] MEDS: CEFTRIAXONE 1 GM in DEXTROSE 5%-WATER - 50 ML IVPB SCH (09:52)
[2019-12-13] MEDS ORDERED: AZITHROMYCIN IVPB 500 MG/250 ML BAG IVPB SCH (10:00)
[2019-12-13] MEDS ORDERED: ENOXAPARIN NA (PORCINE) 40 MG/0.4 ML DISP.SYRIN SQ SCH (10:00)
[2019-12-13] MEDS ORDERED: FUROSEMIDE 100 MG/10 ML INJECTABLE VIAL IVPB SCH (10:00)
--- NOTE | 2019-12-13 11:17 | PN ---
Progress Note (short form) - Note Progress Note: SUBJECTIVE: Feels less SOB, but still winded on ambulation. Cough, yellow sputum - chronic. No CP/hemoptysis. No fever/chills. OBJECTIVE: Afebrile, hemodynamicaly Stable. Last Vital Signs Temp Pulse Resp BP Pulse Ox 97.6 F 81 20 138/80 96 12/13/19 09:00 12/13/19 09:00 12/13/19 09:00 12/13/19 09:00 12/13/19 09:00 HEENT - Atraumatic, Normocephalic. Heart- S1, S2, SM Lungs - decreased air entry at bases, no wheeze. Abdomen - High BMI. Soft, non-tender. Bowel Sounds normal. Extremities - edema ++, erythema/venous stasis skin changes/tender. Neuro - AAO x 3. Tone/Power normal. Laboratory Results - last 24 hr 12/12/19 12/12/19 12/13/19 10:28 10:28 05:53 WBC 6.3 RBC 5.01 Hgb 10.2 L Hct 33.6 L MCV 67.0 L MCH 20.3 L MCHC 30.3 L RDW 20.6 H Plt Count 270 MPV 8.8 Absolute Neuts (auto) 4.6 Neutrophils % 72.1 Lymphocytes % 13.2 Monocytes % 12.4 H Eosinophils % 1.9 Basophils % 0.4 Nucleated RBC % 0 Hypochromia 2+ Poikilocytosis 1+ Anisocytosis 2+ Microcytosis 2+ Schistocytes 1+ Retic Count Sodium 146 H Potassium 3.4 L Chloride 104 Carbon Dioxide 39 H Anion Gap 3 L BUN 20.8 H Creatinine 1.0 Est GFR (CKD-EPI)AfAm 83.18 Est GFR (CKD-EPI)NonAf 71.77 POC Glucometer 157 Random Glucose 97 Calcium 5.6 L* Phosphorus Magnesium Iron TIBC Iron Saturation Unsaturated IBC Ferritin Total Bilirubin 0.2 AST 23 ALT 10 L Alkaline Phosphatase 161 H LD Total Creatine Kinase 47 Troponin I < 0.02 B-Natriuretic Peptide Total Protein 6.3 L Albumin 2.5 L 12/13/19 12/13/19 12/13/19 06:25 06:25 06:25 WBC 6.0 RBC 5.09 Hgb 10.3 L Hct 34.5 L MCV 67.8 L MCH 20.2 L MCHC 29.8 L RDW 20.5 H Plt Count 262 MPV 8.7 Absolute Neuts (auto) 5.4 Neutrophils % 90.3 H Lymphocytes % 6.6 L D Monocytes % 3.0 L Eosinophils % 0.0 D Basophils % 0.1 Nucleated RBC % 0 Hypochromia Poikilocytosis Anisocytosis Microcytosis Schistocytes Retic Count 1.68 H Sodium 141 Potassium 3.8 Chloride 102 Carbon Dioxide 35 H Anion Gap 5 L BUN 17.4 Creatinine 1.0 Est GFR (CKD-EPI)AfAm 83.18 Est GFR (CKD-EPI)NonAf 71.77 POC Glucometer Random Glucose 161 H Calcium 8.4 L Phosphorus 2.7 Magnesium 2.4 Iron 18 L TIBC 285 Iron Saturation 6 L Unsaturated IBC 267 Ferritin 39.3 Total Bilirubin 0.2 AST 17 ALT 16 Alkaline Phosphatase 164 H LD Total 136 Creatine Kinase Troponin I B-Natriuretic Peptide 863.4 H Total Protein 6.5 Albumin 2.5 L Current Medications Generic Name Dose Route Start Last Admin Trade Name Freq PRN Reason Stop Dose Admin Amlodipine Besylate 5 mg 12/14/19 10:00 Norvasc - PO DAILY [facility] Budesonide/Formoterol Fumarate 2 puff 12/12/19 22:00 12/13/19 10:28 Symbicort 160/4.5mcg - IH 2 puff BID FARZANA Administration Calcium/Vitamin D 2 tab 12/12/19 21:30 12/13/19 13:26 Oscal 250 Mg+D - PO Not Given DAILY [facility] Duloxetine HCl 60 mg 12/13/19 22:00 Cymbalta - PO BID [facility] Enoxaparin Sodium 40 mg 12/14/19 10:00 Lovenox - SQ DAILY [facility] Finasteride 5 mg 12/13/19 17:15 Proscar - PO DAILY [facility] Furosemide 40 mg 12/13/19 06:00 12/13/19 14:01 Lasix Injection - IVPB 40 mg BIDLASIX FRAZANA Administration Gabapentin 600 mg 12/13/19 17:15 Neurontin - PO DAILY [facility] Influenza Virus Vaccine 60 mcg 12/13/19 08:00 Flulaval Quad [id number] Syr IM 12/13/19 08:01 .ONCE ONE Insulin Aspart 1 vial 12/13/19 16:30 12/13/19 17:01 Novolog Vial Sliding Scale - SQ 2 units ACHS FARZANA Administration Protocol Levalbuterol HCl 0.63 mg 12/12/19 21:11 Xopenex IH Q8H PRN ASTHMA Levalbuterol HCl 0.63 mg 12/13/19 08:00 Xopenex IH RTID [facility] Loratadine 10 mg 12/14/19 10:00 Claritin - PO DAILY [facility] Losartan Potassium 25 mg 12/14/19 10:00 Cozaar - PO DAILY [facility] Metoprolol Succinate 50 mg 12/13/19 17:30 Toprol Xl - PO DAILY [facility] Mirtazapine 15 mg 12/13/19 22:00 Remeron - PO HS [facility] Non-Formulary Medication 25 - 100 mg 12/14/19 10:00 Carbidopa-Levodopa 25-100 Tab PO DAILY [facility] Non-Formulary Medication 1 puff 12/13/19 22:00 Combivent Respimat 20-100 Mcg IH BID [facility] Non-Formulary Medication 60 mg 12/14/19 10:00 Isosorbide Mononitrate Er PO DAILY [facility] Non-Formulary Medication 300 mg 12/13/19 17:30 Wellbutrin - PO DAILY [facility] Pantoprazole Sodium 40 mg 12/13/19 13:30 12/13/19 14:01 Protonix - PO 40 mg DAILY [facility] Administration Pneumococcal 13-Valent Conj Vacc 0.5 ml 12/13/19 08:00 Prevnar 13 Syringe - IM 12/13/19 08:01 .ONCE ONE Ranolazine 500 mg 12/13/19 17:30 Ranexa - PO DAILY [facility] Tamsulosin HCl 0.4 mg 12/13/19 20:30 Flomax - PO BID@0830,2030 [facility] Tiotropium Magnolia 2 puff 12/13/19 17:30 Spiriva Respimat IH DAILY [facility] Home Medications Medication Instructions Recorded Cetirizine HCl [Zyrtec] 10 mg PO DAILY 12/12/19 Furosemide [Lasix] 80 mg PO DAILY 12/12/19 Pantoprazole Sodium 40 mg PO DAILY 12/12/19 Amlodipine Besylate 5 mg PO DAILY 12/13/19 Carbidopa-Levodopa 25-100 Tab 25 - 100 mg PO DAILY 12/13/19 Clopidogrel Bisulfate [Plavix] 75 mg PO DAILY 12/13/19 Combivent Respimat 20-100 Mcg 12/13/19 Duloxetine HCl 60 mg PO BID 12/13/19 Finasteride 5 mg PO DAILY 12/13/19 Gabapentin 600 mg PO DAILY 12/13/19 Isosorbide Mononitrate ER 60 mg PO DAILY 12/13/19 Lantus 26 units SQ HS 12/13/19 Losartan Potassium 25 mg PO DAILY 12/13/19 Metoprolol Succinate 50 mg PO DAILY 12/13/19 Mirtazapine 15 mg PO HS 12/13/19 Novolog 6 unit SQ AC 12/13/19 Ranolazine ER 500 mg PO DAILY 12/13/19 Spiriva 18 mcg IH 12/13/19 Tamsulosin HCl [Flomax] 0.4 mg PO BID 12/13/19 Wellbutrin - 300 mg PO DAILY 12/13/19 ASSESSMENT/PLAN: 79 year old male with history of CRF sec to COPD (on 3L NC at home), Chronic Diastolic CHF, HTN, CAD s/p stents x 3, DM 2, Parkinson's Disease, BPH, Anxiety/Depression, presents with progressive dyspnea, worse on exertion, and reported hypoxia. 1. Acute on Chronic Hypoxic Respiratory Failure secondary to Acute Diastolic CHF decompensation CXR - cardiomegaly, congestion. BNP 863.4 CTA Chest - no PE, bilateral pleural effusions and pulmonary vascular congestion, bibasilar atelectasis (awaiting official report) Received empiric Ceftriaxone/Azithro - will discontinue. No evidence of COPD Exacerbation - will stop steroids. Lasix 40 mg IV BID Echo ordered. Cardio consulted. COVID PCR pending 2. Chronic Respiratory Failure secondary to COPD - no evidence of acute exacerbation Continue Xopenex PRN, Symbicort, Spiriva. Steroids and Abx stopped. 3. Hypocalcemia - possible lab error, corrected, will monitor. 4. Iron deficiency Anemia, Microcytosis. No history of reported GI blood loss. No evidence of acute GI blood loss. FOBT requested. PPI GI to evaluate. 5. DM 2 - Maintain on Novolog sliding scale. 6. HTN - Norvasc, ISMN, Metoprolol, Losartan 7. Parkinson's Disease - continue Carbidopa-Levodopa 8. BPH - Continue Tamsulosin, Finasteride 9. CAD s/p PCI/Stents - on Plavix, BB, ARB 9. Hypokalemia - repleted, will monitor. 10. Anxiety/Depression - continue Wellbutrin, Mirtazapine, Duloxetine. DVT Px - Lovenox SQ Visit type - Emergency Visit Emergency Visit: Yes ED Registration Date: 12/12/19 Care time: The patient presented to the Emergency Department on the above date and was hospitalized for further evaluation of their emergent condition. - New Patient This patient is new to me today: Yes Date on this admission: 12/13/19 - Critical Care Critical Care patient: No - Discharge Referral Referred to [facility] Med P.C.: No - Medication Review Med list reviewed for High Risk Meds patients 65 and older: Yes
[2019-12-13 11:42] LABS: N-TERMINAL BNP 677.8 pg/ml (5-450)
--- NOTE | 2019-12-13 12:14 | EKG ---
Test Reason : Blood Pressure : / mmHG Vent. Rate : 063 BPM Atrial Rate : 063 BPM P-R Int : 226 ms QRS Dur : 102 ms QT Int : 450 ms P-R-T Axes : 097 -01 016 degrees QTc Int : 460 ms SINUS RHYTHM WITH 1ST DEGREE A-V BLOCK OTHERWISE NORMAL ECG NO PREVIOUS ECGS AVAILABLE Confirmed by Starr Rush ([id number]) on 12/13/2019 12:14:32 PM Referred By: Confirmed By:Starr Rush
--- NOTE | 2019-12-13 12:21 | CON.CARD ---
Consult Consult Specialty:: cardiology Referred by:: medicine Reason for Consultation:: chf - History of Present Illness Chief Complaint: shortness of breath History of Present Illness: 79M h/o COPD on home O2 3L by NC, CHF, HTN, CAD s/p stents x 3, DM, Parkinson's dz pw/shortness of breath, cough, hypoxia. O2 sat dropped to high 70s-low 80s at home. has chronic orthopnea, mild lower ext edema. also complains of chest pain when active at home, he is not sure how long this has been going on. He is not sure who he sees for cardio. Feels better today after receiving lasix, decadron - Smoking History Smoking history: Unknown if ever smoked Have you smoked in the past 12 months: No Home Medications - Allergies Allergies/Adverse Reactions: Allergies Allergy/AdvReac Type Severity Reaction Status Date / Time No Known Allergies Allergy Verified 12/12/19 14:19 - Home Medications Home Medications: Ambulatory Orders Cetirizine HCl [Zyrtec] 10 mg PO DAILY 12/12/19 Furosemide [Lasix] 80 mg PO DAILY 12/12/19 Pantoprazole Sodium 40 mg PO DAILY 12/12/19 Family Medical History Family History: Unremarkable Review of Systems - Review of Systems Constitutional: reports: No Symptoms Eyes: reports: No Symptoms HENT: reports: No Symptoms Neck: reports: No Symptoms Cardiovascular: reports: No Symptoms Respiratory: reports: No Symptoms Gastrointestinal: reports: No Symptoms Genitourinary: reports: No Symptoms Musculoskeletal: reports: No Symptoms Integumentary: reports: No Symptoms Neurological: reports: No Symptoms Endocrine: reports: No Symptoms Hematology/Lymphatic: reports: No Symptoms Psychiatric: reports: No Symptoms Vital Signs: Vital Signs Temperature 97.6 F 12/13/19 09:00 Pulse Rate 81 12/13/19 09:00 Respiratory Rate 20 12/13/19 09:00 Blood Pressure 138/80 12/13/19 09:00 O2 Sat by Pulse Oximetry (%) 96 12/13/19 09:00 Constitutional: Yes: No Distress, Calm Eyes: Yes: Conjunctiva Clear, Ptosis HENT: Yes: Atraumatic, Normocephalic Neck: Yes: Supple, Trachea Midline Respiratory: Yes: Regular, On Nasal O2, Rales Gastrointestinal: Yes: Normal Bowel Sounds, Soft Cardiovascular: Yes: Regular Rate and Rhythm JVD: No Heart Sounds: Yes: S1, S2 Musculoskeletal: No: Back Pain Extremities: No: Cold Edema: Yes Edema: LLE: 1+, RLE: 1+ Integumentary: No: Jaundice Neurological: Yes: Alert, Oriented Psychiatric: No: Agitated - Other Data Labs, Other Data: CBC, BMP 12/13/19 06:25 12/13/19 06:25 Troponin, BNP 12/12/19 12/13/19 10:28 06:25 Troponin I < 0.02 B-Natriuretic Peptide 677.8 H 863.4 H Troponin, BNP 12/12/19 12/13/19 10:28 06:25 Troponin I < 0.02 B-Natriuretic Peptide 677.8 H 863.4 H Assessment/Plan EKG: sinus, first deg AV block, no ischemic changes tele: sinus shortness of breath, acute heart failure, EF not known - echo pending - was on lasix at home 80 mg daily - elevated BNP, congestion on CXR - likely component of CHF exacerbation - pulm consulted as well, CTA chest pending - also on abx for ?PNA - continue IV lasix - monitor Cr, lytes, daily weights COPD - on home O2 - pulm consulted CAD - history of 3 stents, patient not sure of details - unclear if on statin, aspirin - not on meds list, patient not sure of meds - would clarify meds and start aspirin, statin if no contraindication HTN - stable, monitor on lasix DM - manage per primary anemia - GI consulted
[2019-12-13] MEDS ORDERED: PANTOPRAZOLE SOD 40 MG SUSPENSION PACKET PO SCH (12:30)
[2019-12-13] MEDS ORDERED: PT OWN MED DRAWER 7, Y5N ONE (13:22)
--- NOTE | 2019-12-13 13:52 | CON.PULM ---
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 Admitted via the ER due to progressive SOB and increased cough with yellow sputum for the past 1 to 2 days. He reports some marginal improvement with the use of his Albuterol inhaler. No travel history or sick contacts. No known COVID19 exposure. No fever or chills. No night sweats or hemoptysis. He does snore and have symptoms concerning for OSAS. CTA : No PE noted / Bilateral pleural effusions and pulmonary vascular congestion / bibasilar atelectasis (Official read is still pending) - History Source History Provided By: Patient Limitations to Obtaining History: No Limitations - Past Medical History Pulmonary: Yes: Bronchitis, COPD, O2 Dependent, Pneumonia. No: Asthma, Cancer, Previously Intubated, Pulmonary Embolus, Pulmonary Fibrosis - Smoking History Smoking history: Unknown if ever smoked Have you smoked in the past 12 months: No Home Medications - Allergies Allergies/Adverse Reactions: Allergies Allergy/AdvReac Type Severity Reaction Status Date / Time No Known Allergies Allergy Verified 12/12/19 14:19 - Home Medications Home Medications: Ambulatory Orders Cetirizine HCl [Zyrtec] 10 mg PO DAILY 12/12/19 Furosemide [Lasix] 80 mg PO DAILY 12/12/19 Pantoprazole Sodium 40 mg PO DAILY 12/12/19 Family Medical History Family History: Unremarkable Review of Systems - Review of Systems Constitutional: reports: Malaise. denies: Chills, Fever, Lethargy, Loss of Appetite, Night Sweats, Unintentional Wgt. Loss Eyes: reports: No Symptoms HENT: reports: No Symptoms Neck: reports: No Symptoms Cardiovascular: reports: Edema, Shortness of Breath. denies: Chest Pain, Palpitations Respiratory: reports: Cough, Orthopnea, PND, Snoring, SOB, SOB on Exertion. denies: Hemoptysis, Wheezing Gastrointestinal: reports: No Symptoms Genitourinary: reports: No Symptoms Breasts: reports: No Symptoms Reported Integumentary: reports: Change in Color Neurological: reports: No Symptoms Endocrine: reports: No Symptoms Hematology/Lymphatic: reports: No Symptoms Psychiatric: reports: No Symptoms Physical Exam Vital Sings: Vital Signs Temperature 97.6 F 12/13/19 09:00 Pulse Rate 81 12/13/19 09:00 Respiratory Rate 20 12/13/19 09:00 Blood Pressure 138/80 12/13/19 09:00 O2 Sat by Pulse Oximetry (%) 96 12/13/19 09:00 Constitutional: Yes: No Distress, Obese Eyes: Yes: Conjunctiva Clear, EOM Intact HENT: Yes: Atraumatic, Normocephalic Neck: Yes: Supple, Trachea Midline Cardiovascular: Yes: Regular Rate and Rhythm Respiratory: Yes: Cough, Diminished, On Nasal O2, Rales, Rhonchi, SOB on Exertion. No: Accessory Muscle Use, SOB, Stridor, Tachypnea, Wheezes ...Inspection: Yes: WNL ...Clubbing: No Gastrointestinal: Yes: Normal Bowel Sounds, Soft, Abdomen, Obese Renal/: Yes: WNL Musculoskeletal: Yes: WNL Extremities: Yes: Erythema Edema: Yes Peripheral Pulses WNL: Yes Integumentary: Yes: Venous Stasis Changes Neurological: Yes: WNL, Alert, Oriented ...Motor Strength: WNL Psychiatric: Yes: WNL, Alert, Oriented Labs: CBC, BMP 12/13/19 06:25 12/13/19 06:25 Imaging - Results Chest X-ray: Report Reviewed, Image Reviewed Cat Scan: Image Reviewed Problem List - Problems (1) Pleural effusion due to CHF (congestive heart failure) Code(s): I50.9 - HEART FAILURE, UNSPECIFIED (2) Atelectasis of both lungs Code(s): J98.11 - ATELECTASIS (3) Dyspnea Code(s): R06.00 - DYSPNEA, UNSPECIFIED (4) Dyspnea due to congestive heart failure Code(s): I50.9 - HEART FAILURE, UNSPECIFIED (5) COPD (chronic obstructive pulmonary disease) Code(s): J44.9 - CHRONIC OBSTRUCTIVE PULMONARY DISEASE, UNSPECIFIED (6) Chronic bronchitis Code(s): J42 - UNSPECIFIED CHRONIC BRONCHITIS (7) Obesity (BMI 30-39.9) Code(s): E66.9 - OBESITY, UNSPECIFIED (8) Congestive heart failure Code(s): I50.9 - HEART FAILURE, UNSPECIFIED Assessment/Plan IMP: Suspected decompensated CHF rather than AE OF COPD Likely OSAS PLAN: Symbicort BID Xopenex Would monitor off systemic steroids for now Would monitor off ABX for now Lasix IVP BID VTE prophylaxis Follow I & O Follow Daily weight No smoking Sleep screen Supplemental O2 as needed Follow COVID19 testing Will follow Thank you. Dr Sweet CHATA Screen - CHATA History Previously diagnosed with Sleep Apnea: No If Yes, currently using CPAP to treat your CHATA: No - SNORING Do you snore loudly (enough to be heard thru closed doors)?: Yes - TIRED Do you often feel tired, fatigued, or sleepy during daytime?: Yes - OBSERVED Has anyone observed you stop breathing during your sleep?: Yes - BLOOD PRESSURE Do you have or are being treated for high blood pressure?: Yes - BMI Answer Y if weight exceeds amount listed for your height: Yes .: HEIGHT & WEIGHT (lbs): 4'10" 167lbs; 4'11" 175 lbs; 5'0" 179lbs;. 5'1" 185lbs; 5'2" 191lbs; 5'3" 197lbs;. 5'4" 204lbs; 5'5" 210lbs; 5'6" 216lbs;. 5'7" 223lbs; 5'8" 230lbs; 5'9" 237lbs;. 5'10" 243lbs; 511" 250lbs; 6' 258lbs;. 6'1" 265lbs; 6'2" 272lbs; 6'3" 279lbs;. 6'4" 287lbs; 6'5" 295lbs - AGE Is your age over 50 yrs old?: Yes - NECK CIRCUMFERENCE Neck Circumference 40cm: Yes - GENDER Male: Yes - SCORE Total Score: 8 Score Interpretation: High Risk of CHATA .: Interpretation: Score 0-2: Low Risk CHATA. Score 3-4: Intermediate Risk CHATA. Score 5-8: High Risk CHATA
[2019-12-13] MEDS: PANTOPRAZOLE 40 MG TABLET PO SCH (14:01)
[2019-12-13] MEDS: INSULIN SLIDING SCALE (NOVOLOG) 1 VIAL SQ SCH ×2 (17:01→21:05)
[2019-12-13] MEDS: RANOLAZINE E.R. 500 MG TABLET (FP) PO SCH (17:53)
[2019-12-13] MEDS: GABAPENTIN 300 MG CAPSULE PO SCH (17:53)
[2019-12-13] MEDS: FINASTERIDE 5 MG TABLET (FP) PO SCH (17:53)
[2019-12-13] MEDS: TIOTROPIUM BROMIDE 2.5 MCG (SPIRIVA) RESPIMAT INHALER IH SCH (20:58)
[2019-12-13] MEDS: TAMSULOSIN HCL 0.4 MG CAP PO SCH (20:58)
[2019-12-13] MEDS: DULoxetine HCL 30 MG CAPSULE.DR PO SCH (21:05)
[2019-12-13] MEDS: MIRTAZAPINE 15 MG TABLET (FP) PO SCH (21:14)
[2019-12-13] MEDS ORDERED: COMBIVENT RESPIMAT IH SCH (22:00)
[2019-12-14] MEDS: FUROSEMIDE 100 MG/10 ML INJECTABLE VIAL IVPB SCH (06:31)
[2019-12-14] MEDS: INSULIN SLIDING SCALE (NOVOLOG) 1 VIAL SQ SCH ×4 (06:31→21:42)
[2019-12-14] MEDS: RANOLAZINE E.R. 500 MG TABLET (FP) PO SCH (09:39)
[2019-12-14] MEDS: DULoxetine HCL 30 MG CAPSULE.DR PO SCH ×2 (09:40→21:38)
[2019-12-14] MEDS: FINASTERIDE 5 MG TABLET (FP) PO SCH (09:40)
[2019-12-14] MEDS: LOSARTAN POTASSIUM 25 MG TABLET PO SCH (09:40)
[2019-12-14] MEDS: PANTOPRAZOLE 40 MG TABLET PO SCH (09:40)
[2019-12-14] MEDS: ENOXAPARIN NA (PORCINE) 40 MG/0.4 ML DISP.SYRIN SQ SCH (09:40)
[2019-12-14] MEDS: CARBIDOPA/LEVODOPA 25/100 TABLET (FP) PO SCH (09:40)
[2019-12-14] MEDS: TAMSULOSIN HCL 0.4 MG CAP PO SCH ×2 (09:40→20:24)
[2019-12-14] MEDS: amLODIPine BESYLATE 5 MG TABLET (FP) PO SCH (09:40)
[2019-12-14] MEDS: ISOSORBIDE MONONITRATE 60 MG TAB.SR.24H (FP) PO SCH (09:40)
[2019-12-14] MEDS: LORATADINE 10 MG TABLET PO SCH (09:40)
[2019-12-14] MEDS: CALCIUM 250MG/VIT-D 125 UNITS 1 COMBO TABLET PO SCH (09:40)
[2019-12-14] MEDS: GABAPENTIN 300 MG CAPSULE PO SCH (09:40)
[2019-12-14] MEDS: TIOTROPIUM BROMIDE 2.5 MCG (SPIRIVA) RESPIMAT INHALER IH SCH (09:41)
[2019-12-14] MEDS: BUDESONIDE/FORMETEROL FUMARATE 160/4.5 mcg INHALER IH SCH ×2 (09:41→21:39)
[2019-12-14 10:26] LABS: BASO % 0.3 % (0-2.0); EOS % 0.6 % (0-4.5); HEMATOCRIT 34.1 % (35.4-49); HEMOGLOBIN 10.4 GM/dL (11.7-16.9); MCH 20.5 pg (25.7-33.7); MCHC 30.4 g/dl (32.0-35.9); MEAN CELL VOLUME 67.5 fl (80-96); MEAN PLT VOLUME 8.1 fl (7.5-11.1); MONO % 12.2 % (3.8-10.2); NEUT % 71.9 % (42.8-82.8); PLATELET COUNT 291 K/MM3 (134-434); RBC 5.05 M/mm3 (4.00-5.60); RDW 20.3 % (11.9-15.9)
[2019-12-14 10:54] LABS: ALBUMIN 2.8 g/dl (3.4-5.0); BILIRUBIN,TOTAL 0.3 mg/dL (0.2-1); BLOOD UREA NITROGEN 24.2 mg/dL (7-18); CALCIUM 8.6 mg/dL (8.5-10.1); CREATININE 1.3 mg/dL (0.55-1.3); MAGNESIUM 2.3 mg/dL (1.8-2.4); PHOSPHOROUS 2.3 mg/dL (2.5-4.9); TOT PROT 6.7 g/dl (6.4-8.2)
--- NOTE | 2019-12-14 11:07 | PN.GI ---
GI Progress Note Subjective: No overt bleeding Prior records reviewed: had Hgb 9.6 01/20 Also has history of partial gastrectomy, cholecystectomy, inguinal hernia repair Had laparotomy for SBO @ [facility] 01/20: ALEX and repair of serosal tears performed, no bowel resection Patient believes that he subsequently had a ventral hernia repair recently (s tates that was discharged from [facility] ? 2 weeks ago), however this report was not in external medical records Still describes shortness of breath No overt bleeding reported Maintained on Plavix as outpatient D/w his daughter: Mr. Sanchez'stepan mother had colon cancer late - Objective Vital Signs: Vital Signs Temperature 97.6 F 12/14/19 09:57 Pulse Rate 64 12/14/19 09:57 Respiratory Rate 20 12/14/19 09:57 Blood Pressure 131/71 12/14/19 09:57 O2 Sat by Pulse Oximetry (%) 96 12/14/19 09:00 Constitutional: Calm Eyes: No: Sclera Icterus Cardiovascular: Yes: Regular Rate and Rhythm. No: Murmur Respiratory: Yes: Diminished (at bases bilaterally) Gastrointestinal Inspection: Yes: Scars. No: Distention ...Auscultate: Yes: Normoactive Bowel Sounds ...Palpate: Yes: Soft ...Percussion: No: Tympanitic ...Rectal Exam: Yes: Other (No external lesions, no masses,trace brown stool in rectal vault, guaiac negative) Edema: Yes Edema: LLE: 1+, RLE: 1+ Neurological: Yes: Alert Labs: CBC, BMP 12/14/19 09:50 12/14/19 09:50 Problem List - Problems (1) Anemia Assessment/Plan: Appears chronic, worse on 01/20 labs Guaiac negative on exam, no active bleeding history Low iron indices Being evaluated by Cardiology and Pulmonary Discussed anemia with patient and his daughter via telephone. advised that when acute issues are resolved and when medically cleared, colonoscopy +/- endoscopy could be undertaken. There was concern on both their ends given his multiple comorbidities. He explains that he was advised "not to have any surgeries due to his other medical problems." Explained that given his multiple comorbidities, the best venue these procedures to assess for GI source of blood loss (given family history of colon cancer as well) would be at a tertiary care center such as [facility] (daughter works at [facility].) I advised that when acute issues are resolved, she call [facility] PMD Dr. Joseph Najera (works at [facility]) to arrange follow-up regarding this and referral to GI @ [facility]. Plavix would need to be held 5 days prior to colonoscopy with ASA 81mg once daily continued. Her daughter was in agreement with this plan. Continue protonix 20mg once daily Recall GI as needed Code(s): D64.9 - ANEMIA, UNSPECIFIED
[2019-12-14] MEDS ORDERED: POTASSIUM PHOSPHATE 15 MM in SODIUM CHLORIDE 250 ML IVPB ONE (11:33)
--- NOTE | 2019-12-14 11:57 | PN ---
Progress Note (short form) - Note Progress Note: Chief Complaint: shortness of breath History of Present Illness: 79M h/o COPD on home O2 3L by NC, CHF, HTN, CAD s/p stents x 3, DM, Parkinson's dz pw/shortness of breath, cough, hypoxia. O2 sat dropped to high 70s-low 80s at home. has chronic orthopnea, mild lower ext edema. also complains of chest pain when active at home, he is not sure how long this has been going on. He is not sure who he sees for cardio. Feels better after receiving lasix, decadron s: no cp palps dizzy; sob improving Current Medications Generic Name Dose Route Start Last Admin Trade Name Freq PRN Reason Stop Dose Admin Amlodipine Besylate 5 mg 12/14/19 10:00 12/14/19 09:40 Norvasc - PO 5 mg DAILY FARZANA Administration Budesonide/Formoterol Fumarate 2 puff 12/12/19 22:00 12/14/19 09:41 Symbicort 160/4.5mcg - IH 2 puff BID FARZANA Administration Bupropion HCl 300 mg 12/13/19 17:30 12/14/19 09:40 Wellbutrin Xl - PO 300 mg DAILY FARZANA Administration Calcium/Vitamin D 2 tab 12/12/19 21:30 12/14/19 09:40 Oscal 250 Mg+D - PO 2 tab DAILY FARZANA Administration Carbidopa/Levodopa 1 each 12/14/19 10:00 12/14/19 09:40 Sinemet 25/100 - PO 1 each DAILY FARZANA Administration Duloxetine HCl 60 mg 12/13/19 22:00 12/14/19 09:40 Cymbalta - PO 60 mg BID FARZANA Administration Enoxaparin Sodium 40 mg 12/14/19 10:00 12/14/19 09:40 Lovenox - SQ 40 mg DAILY FARZANA Administration Finasteride 5 mg 12/13/19 17:15 12/14/19 09:40 Proscar - PO 5 mg DAILY FARZANA Administration Furosemide 40 mg 12/14/19 10:24 Lasix Injection - IVPB BIDLASIX FARZANA Gabapentin 600 mg 12/13/19 17:15 12/14/19 09:40 Neurontin - PO 600 mg DAILY FARZANA Administration Potassium Phosphate 15 mm/ 255 mls @ 62.5 mls/hr 12/14/19 11:33 Sodium Chloride IVPB 12/14/19 15:37 ONCE ONE Influenza Virus Vaccine 60 mcg 12/13/19 08:00 Flulaval Quad [id number] Syr IM 12/13/19 08:01 .ONCE ONE Insulin Aspart 1 vial 12/13/19 16:30 12/14/19 11:24 Novolog Vial Sliding Scale - SQ Not Given ACHS FARZANA Protocol Isosorbide Mononitrate 60 mg 12/14/19 10:00 12/14/19 09:40 Imdur - PO 60 mg DAILY FARZANA Administration Levalbuterol HCl 0.63 mg 12/12/19 21:11 Xopenex IH Q8H PRN ASTHMA Levalbuterol HCl 0.63 mg 12/13/19 08:00 Xopenex IH RTID FARZANA Loratadine 10 mg 12/14/19 10:00 12/14/19 09:40 Claritin - PO 10 mg DAILY FARZANA Administration Losartan Potassium 25 mg 12/14/19 10:00 12/14/19 09:40 Cozaar - PO 25 mg DAILY FARZANA Administration Metoprolol Succinate 50 mg 12/13/19 17:30 12/14/19 09:40 Toprol Xl - PO 50 mg DAILY FARZANA Administration Mirtazapine 15 mg 12/13/19 22:00 12/13/19 21:14 Remeron - PO 15 mg HS FARZANA Administration Pantoprazole Sodium 20 mg 12/15/19 10:00 Protonix - PO DAILY FARZANA Pneumococcal 13-Valent Conj Vacc 0.5 ml 12/13/19 08:00 Prevnar 13 Syringe - IM 12/13/19 08:01 .ONCE ONE Ranolazine 500 mg 12/13/19 17:30 12/14/19 09:39 Ranexa - PO 500 mg DAILY FARZANA Administration Tamsulosin HCl 0.4 mg 12/13/19 20:30 12/14/19 09:40 Flomax - PO 0.4 mg BID@ FARZANA Administration Tiotropium [place] 2 puff 12/13/19 17:30 12/14/19 09:41 Spiriva Respimat IH 2 puff DAILY FARZANA Administration Vital Signs Period Temp Pulse Resp BP Sys/Cole Pulse Ox Last 24 Hr 97.0 F-97.7 F 60-77 20-20 129-152/57-78 95-96 Constitutional: Yes: No Distress, Calm Eyes: Yes: Conjunctiva Clear, Ptosis HENT: Yes: Atraumatic, Normocephalic Neck: Yes: Supple, Trachea Midline Respiratory: Yes: Regular, dec bs bases nl eff Gastrointestinal: Yes: Normal Bowel Sounds, Soft Cardiovascular: Yes: Regular Rate and Rhythm JVD: No Heart Sounds: Yes: S1, S2 Musculoskeletal: No: Back Pain Extremities: No: Cold Edema: Yes, trace Integumentary: No: Jaundice Neurological: Yes: Alert, Oriented Psychiatric: No: Agitated - Other Data Labs, Other Data: CBC, BMP 12/14/19 09:50 12/14/19 09:50 Assessment/Plan EKG: sinus, first deg AV block, no ischemic changes tele: sinus shortness of breath, acute heart failure, EF not known - echo pending - was on lasix at home 80 mg daily - elevated BNP, congestion on CXR - likely component of CHF exacerbation - pulm consulted as well - also on abx for ?PNA - continue IV lasix - monitor Cr, lytes, daily weights COPD - on home O2 - pulm consulted CAD - history of 3 stents, patient not sure of details - unclear if on statin, aspirin - not on meds list, patient not sure of meds -cont bb, arb, ranexa, imdur, ccb - would clarify meds and start aspirin, statin if no contraindication HTN - stable, cont current meds DM - manage per primary anemia - GI consulted
--- NOTE | 2019-12-14 12:45 | ECHO ---
Name: SHAHLA MENA Exam:Adult Echocardiogram Study Date: 12/14/2019 08:50 AM Age: 79 yrs Reason For Study: LV Function Height: 76 in Weight: 360 lb BSA: 2.8 m2 MMode/2D Measurements & Calculations IVSd: 1.2 cm Ao root diam: 3.4 cm LVIDd: 4.6 cm LA dimension: 3.8 cm LVIDs: 3.3 cm LVPWd: 1.0 cm EDV(Teich): 99.6 ml LVOT diam: 2.0 cm ESV(Teich): 42.9 ml LAV (MOD-bp): 78.4 ml Doppler Measurements & Calculations MV E max ildefonso: 115.0 cm/sec Ao V2 max: 140.3 cm/sec MV A max ildefonso: 103.5 cm/sec Ao max P.9 mmHg MV E/A: 1.1 MV dec time: 0.14 sec CLAUDINE(V,D): 2.4 cm2 LV V1 max P.9 mmHg MR max ildefonso: 418.5 cm/sec LV V1 max: 110.8 cm/sec MR max P.7 mmHg TR max ildefonso: 251.3 cm/sec PA V2 max: 132.7 cm/sec TR max P.3 mmHg PA max P.0 mmHg Med Peak E' Ildefonso: 7.4 cm/sec PI Vmax: 136.5 cm/sec Med E/e': 15.5 Lat Peak E' Ildefonso: 7.8 cm/sec Lat E/e': 14.7 Procedure A complete two-dimensional transthoracic echocardiogram was performed (2D, M-mode, Doppler and color flow Doppler). Technically limited study. Left Ventricle The left ventricle is normal in size. Left ventricular systolic function is normal. Ejection Fraction = 60- 65%. No regional wall motion abnormalities noted. Right Ventricle The right ventricle is normal size. The right ventricular systolic function is normal. Atria The left atrial size is normal. Right atrial size is normal. Mitral Valve The mitral valve is normal in structure and function. There is no mitral regurgitation noted. Tricuspid Valve The tricuspid valve is normal in structure and function. There is mild tricuspid regurgitation. Aortic Valve The aortic valve is normal in structure and function. No aortic regurgitation is present. Pulmonic Valve The pulmonic valve is not well visualized. Great Vessels The aortic root is normal size. Pericardium/Pleura There is no pericardial effusion. Interpretation Summary Technically limited study The left ventricle is normal in size. Left ventricular systolic function is normal. No regional wall motion abnormalities noted. Ejection Fraction = 60-65%. There is mild tricuspid regurgitation. There is no pericardial effusion. Rosalio Davidson MD 12/14/2019 12:44 PM
--- NOTE | 2019-12-14 13:14 | PN ---
Progress Note (short form) - Note Progress Note: Resting in NAD. Less SOB today. No CP. No acute events overnight. Intake & Output 12/11/19 12/12/19 12/13/19 12/14/19 23:59 23:59 23:59 23:59 Intake Total 780 240 Output Total 1600 700 Balance -820 -460 Weight 314 lb 315 lb 1.6 oz Last Vital Signs Temp Pulse Resp BP Pulse Ox 97.6 F 64 20 131/71 96 12/14/19 09:57 12/14/19 09:57 12/14/19 09:57 12/14/19 09:57 12/14/19 09:00 Active Medications Amlodipine Besylate (Norvasc -) 5 mg PO DAILY [facility] Last Admin: 12/14/19 09:40 Dose: 5 mg Documented by: Budesonide/Formoterol Fumarate (Symbicort 160/4.5mcg -) 2 puff IH BID [facility] Last Admin: 12/14/19 09:41 Dose: 2 puff Documented by: Bupropion HCl (Wellbutrin Xl -) 300 mg PO DAILY [facility] Last Admin: 12/14/19 09:40 Dose: 300 mg Documented by: Calcium/Vitamin D (Oscal 250 Mg+D -) 2 tab PO DAILY [facility] Last Admin: 12/14/19 09:40 Dose: 2 tab Documented by: Carbidopa/Levodopa (Sinemet 25/100 -) 1 each PO DAILY [facility] Last Admin: 12/14/19 09:40 Dose: 1 each Documented by: Duloxetine HCl (Cymbalta -) 60 mg PO BID [facility] Last Admin: 12/14/19 09:40 Dose: 60 mg Documented by: Enoxaparin Sodium (Lovenox -) 40 mg SQ DAILY [facility] Last Admin: 12/14/19 09:40 Dose: 40 mg Documented by: Finasteride (Proscar -) 5 mg PO DAILY [facility] Last Admin: 12/14/19 09:40 Dose: 5 mg Documented by: Furosemide (Lasix Injection -) 40 mg IVPB BIDLASIX [facility] Gabapentin (Neurontin -) 600 mg PO DAILY [facility] Last Admin: 12/14/19 09:40 Dose: 600 mg Documented by: Potassium Phosphate 15 mm/ (Sodium Chloride) 255 mls @ 62.5 mls/hr IVPB ONCE ONE Stop: 12/14/19 15:37 Influenza Virus Vaccine (Flulaval Quad 0158-0361 Syr) 60 mcg IM .ONCE ONE Stop: 12/13/19 08:01 Insulin Aspart (Novolog Vial Sliding Scale -) 1 vial SQ [facility]; Protocol Last Admin: 12/14/19 11:24 Dose: Not Given Documented by: Isosorbide Mononitrate (Imdur -) 60 mg PO DAILY [facility] Last Admin: 12/14/19 09:40 Dose: 60 mg Documented by: Levalbuterol HCl (Xopenex) 0.63 mg IH Q8H PRN PRN Reason: ASTHMA Levalbuterol HCl (Xopenex) 0.63 mg IH RTID [facility] Loratadine (Claritin -) 10 mg PO DAILY [facility] Last Admin: 12/14/19 09:40 Dose: 10 mg Documented by: Losartan Potassium (Cozaar -) 25 mg PO DAILY [facility] Last Admin: 12/14/19 09:40 Dose: 25 mg Documented by: Metoprolol Succinate (Toprol Xl -) 50 mg PO DAILY [facility] Last Admin: 12/14/19 09:40 Dose: 50 mg Documented by: Mirtazapine (Remeron -) 15 mg PO HS [facility] Last Admin: 12/13/19 21:14 Dose: 15 mg Documented by: Pantoprazole Sodium (Protonix -) 20 mg PO DAILY [facility] Pneumococcal 13-Valent Conj Vacc (Prevnar 13 Syringe -) 0.5 ml IM .ONCE ONE Stop: 12/13/19 08:01 Ranolazine (Ranexa -) 500 mg PO DAILY [facility] Last Admin: 12/14/19 09:39 Dose: 500 mg Documented by: Tamsulosin HCl (Flomax -) 0.4 mg PO BID@829,2029 [facility] Last Admin: 12/14/19 09:40 Dose: 0.4 mg Documented by: Tiotropium Tina (Spiriva Respimat) 2 puff IH DAILY [facility] Last Admin: 12/14/19 09:41 Dose: 2 puff Documented by: Constitutional: Yes: No Distress, Obese Eyes: Yes: Conjunctiva Clear, EOM Intact HENT: Yes: Atraumatic, Normocephalic Neck: Yes: Supple, Trachea Midline Cardiovascular: Yes: Regular Rate and Rhythm Respiratory: Yes: Cough, Diminished, On Nasal O2, Rales, Rhonchi, SOB on Exertion. No: Accessory Muscle Use, SOB, Stridor, Tachypnea, Wheezes ...Inspection: Yes: WNL ...Clubbing: No Gastrointestinal: Yes: Normal Bowel Sounds, Soft, Abdomen, Obese Renal/: Yes: WNL Musculoskeletal: Yes: WNL Extremities: Yes: Erythema Edema: Yes Peripheral Pulses WNL: Yes Integumentary: Yes: Venous Stasis Changes Neurological: Yes: WNL, Alert, Oriented ...Motor Strength: WNL Psychiatric: Yes: WNL, Alert, Oriented Labs: Laboratory Results - last 24 hr 12/12/19 12/13/19 12/13/19 21:55 17:00 20:46 WBC RBC Hgb Hct MCV MCH MCHC RDW Plt Count MPV Absolute Neuts (auto) Neutrophils % Lymphocytes % Monocytes % Eosinophils % Basophils % Nucleated RBC % Sodium Potassium Chloride Carbon Dioxide Anion Gap BUN Creatinine Est GFR (CKD-EPI)AfAm Est GFR (CKD-EPI)NonAf POC Glucometer 230 139 Random Glucose Calcium Phosphorus Magnesium Total Bilirubin AST ALT Alkaline Phosphatase Total Protein Albumin COVID-19 (DIMAS) Not detected 12/14/19 12/14/19 12/14/19 06:26 09:50 09:50 WBC 8.0 RBC 5.05 Hgb 10.4 L Hct 34.1 L MCV 67.5 L MCH 20.5 L MCHC 30.4 L RDW 20.3 H Plt Count 291 MPV 8.1 Absolute Neuts (auto) 5.8 Neutrophils % 71.9 D Lymphocytes % 15.0 D Monocytes % 12.2 H D Eosinophils % 0.6 D Basophils % 0.3 Nucleated RBC % 0 Sodium 144 Potassium 4.0 Chloride 101 Carbon Dioxide 42 H Anion Gap 0 L BUN 24.2 H Creatinine 1.3 Est GFR (CKD-EPI)AfAm 60.57 Est GFR (CKD-EPI)NonAf 52.26 POC Glucometer 125 Random Glucose 161 H Calcium 8.6 Phosphorus 2.3 L Magnesium 2.3 Total Bilirubin 0.3 AST 16 ALT 17 Alkaline Phosphatase 134 H Total Protein 6.7 Albumin 2.8 L COVID-19 (DIMAS) 12/14/19 11:22 WBC RBC Hgb Hct MCV MCH MCHC RDW Plt Count MPV Absolute Neuts (auto) Neutrophils % Lymphocytes % Monocytes % Eosinophils % Basophils % Nucleated RBC % Sodium Potassium Chloride Carbon Dioxide Anion Gap BUN Creatinine Est GFR (CKD-EPI)AfAm Est GFR (CKD-EPI)NonAf POC Glucometer 139 Random Glucose Calcium Phosphorus Magnesium Total Bilirubin AST ALT Alkaline Phosphatase Total Protein Albumin COVID-19 (DIMAS) Imaging - Results Chest X-ray: Report Reviewed, Image Reviewed Cat Scan: Image Reviewed Problem List - Problems (1) Pleural effusion due to CHF (congestive heart failure) Code(s): I50.9 - HEART FAILURE, UNSPECIFIED (2) Atelectasis of both lungs Code(s): J98.11 - ATELECTASIS (3) Dyspnea Code(s): R06.00 - DYSPNEA, UNSPECIFIED (4) Dyspnea due to congestive heart failure Code(s): I50.9 - HEART FAILURE, UNSPECIFIED (5) COPD (chronic obstructive pulmonary disease) Code(s): J44.9 - CHRONIC OBSTRUCTIVE PULMONARY DISEASE, UNSPECIFIED (6) Chronic bronchitis Code(s): J42 - UNSPECIFIED CHRONIC BRONCHITIS (7) Obesity (BMI 30-39.9) Code(s): E66.9 - OBESITY, UNSPECIFIED (8) Congestive heart failure Code(s): I50.9 - HEART FAILURE, UNSPECIFIED CHATA Screen - CHATA History Previously diagnosed with Sleep Apnea: No If Yes, currently using CPAP to treat your CHATA: No - SNORING Do you snore loudly (enough to be heard thru closed doors)?: Yes - TIRED Do you often feel tired, fatigued, or sleepy during daytime?: Yes - OBSERVED Has anyone observed you stop breathing during your sleep?: Yes - BLOOD PRESSURE Do you have or are being treated for high blood pressure?: Yes - BMI Answer Y if weight exceeds amount listed for your height: Yes .: HEIGHT & WEIGHT (lbs): 4'10" 167lbs; 411" 175 lbs; 5'0" 179lbs;. 5'1" 185lbs; 5'2" 191lbs; 5'3" 197lbs;. 5'4" 204lbs; 5'5" 210lbs; 5'6" 216lbs;. 5'7" 223lbs; 58" 230lbs; 59" 237lbs;. 10" 243lbs; 11" 250lbs; 6' 258lbs;. 6'1" 265lbs; 6'2" 272lbs; 6'3" 279lbs;. 6'4" 287lbs; 6'5" 295lbs - AGE Is your age over 50 yrs old?: Yes - NECK CIRCUMFERENCE Neck Circumference 40cm: Yes - GENDER Male: Yes - SCORE Total Score: 8 Score Interpretation: High Risk of CHATA .: Interpretation: Score 0-2: Low Risk CHATA. Score 3-4: Intermediate Risk CHATA. Score 5-8: High Risk CHATA Assessment/Plan Suspected decompensated CHF rather than AE OF COPD Likely [facility] COVID19 (-) PLAN: Symbicort BID Xopenex Continue to monitor off systemic steroids for now Monitor off ABX Lasix IVP BID VTE prophylaxis Follow I & O Follow Daily weight No smoking Sleep screen Supplemental O2 as needed Dr Sweet Problem List - Problems (1) Pleural effusion due to CHF (congestive heart failure) Code(s): I50.9 - HEART FAILURE, UNSPECIFIED (2) Atelectasis of both lungs Code(s): J98.11 - ATELECTASIS (3) Dyspnea Code(s): R06.00 - DYSPNEA, UNSPECIFIED (4) Dyspnea due to congestive heart failure Code(s): I50.9 - HEART FAILURE, UNSPECIFIED (5) COPD (chronic obstructive pulmonary disease) Code(s): J44.9 - CHRONIC OBSTRUCTIVE PULMONARY DISEASE, UNSPECIFIED (6) Chronic bronchitis Code(s): J42 - UNSPECIFIED CHRONIC BRONCHITIS (7) Obesity (BMI 30-39.9) Code(s): E66.9 - OBESITY, UNSPECIFIED (8) Congestive heart failure Code(s): I50.9 - HEART FAILURE, UNSPECIFIED Qualifiers: Heart failure type: unspecified Heart failure chronicity: unspecified Qualified Code(s): I50.9 - Heart failure, unspecified
[2019-12-14] MEDS: FUROSEMIDE 40 MG/4 ML INJECTABLE VIAL IVPB SCH (13:57)
--- NOTE | 2019-12-14 14:06 | PN ---
Teaching Attending Note Name of Resident: Vidya Rankin ATTENDING PHYSICIAN STATEMENT I saw and evaluated the patient. I reviewed the resident's note and discussed the case with the resident. I agree with the resident's findings and plan as documented. SUBJECTIVE: Feels less SOB. Cough, yellow sputum - chronic. No CP/hemoptysis. No fever/chills. OBJECTIVE: Afebrile, hemodynamicaly Stable. SpO2 96% on 2L via NC Last Vital Signs Temp Pulse Resp BP Pulse Ox 97.6 F 64 20 131/71 96 12/14/19 09:57 12/14/19 09:57 12/14/19 09:57 12/14/19 09:57 12/14/19 09:00 Heart- S1, S2, SM Lungs - decreased air entry/few crackles at bases, no wheeze. Abdomen - High BMI. Soft, non-tender. Bowel Sounds normal. Extremities - edema ++, erythema/venous stasis skin changes/tender. Neuro - AAO x 3. Tone/Power normal. Laboratory Results - last 24 hr 12/12/19 12/13/19 12/13/19 21:55 17:00 20:46 WBC RBC Hgb Hct MCV MCH MCHC RDW Plt Count MPV Absolute Neuts (auto) Neutrophils % Lymphocytes % Monocytes % Eosinophils % Basophils % Nucleated RBC % Sodium Potassium Chloride Carbon Dioxide Anion Gap BUN Creatinine Est GFR (CKD-EPI)AfAm Est GFR (CKD-EPI)NonAf POC Glucometer 230 139 Random Glucose Calcium Phosphorus Magnesium Total Bilirubin AST ALT Alkaline Phosphatase Total Protein Albumin COVID-19 ([facility]IMAS) Not detected 12/14/19 12/14/19 12/14/19 06:26 09:50 09:50 WBC 8.0 RBC 5.05 Hgb 10.4 L Hct 34.1 L MCV 67.5 L MCH 20.5 L MCHC 30.4 L RDW 20.3 H Plt Count 291 MPV 8.1 Absolute Neuts (auto) 5.8 Neutrophils % 71.9 D Lymphocytes % 15.0 D Monocytes % 12.2 H D Eosinophils % 0.6 D Basophils % 0.3 Nucleated RBC % 0 Sodium 144 Potassium 4.0 Chloride 101 Carbon Dioxide 42 H Anion Gap 0 L BUN 24.2 H Creatinine 1.3 Est GFR (CKD-EPI)AfAm 60.57 Est GFR (CKD-EPI)NonAf 52.26 POC Glucometer 125 Random Glucose 161 H Calcium 8.6 Phosphorus 2.3 L Magnesium 2.3 Total Bilirubin 0.3 AST 16 ALT 17 Alkaline Phosphatase 134 H Total Protein 6.7 Albumin 2.8 L COVID-19 (DIMAS) 12/14/19 11:22 WBC RBC Hgb Hct MCV MCH MCHC RDW Plt Count MPV Absolute Neuts (auto) Neutrophils % Lymphocytes % Monocytes % Eosinophils % Basophils % Nucleated RBC % Sodium Potassium Chloride Carbon Dioxide Anion Gap BUN Creatinine Est GFR (CKD-EPI)AfAm Est GFR (CKD-EPI)NonAf POC Glucometer 139 Random Glucose Calcium Phosphorus Magnesium Total Bilirubin AST ALT Alkaline Phosphatase Total Protein Albumin COVID-19 ([facility]IMAS) Current Medications Generic Name Dose Route Start Last Admin Trade Name Freq PRN Reason Stop Dose Admin Amlodipine Besylate 5 mg 12/14/19 10:00 12/14/19 09:40 Norvasc - PO 5 mg DAILY [facility] Administration Budesonide/Formoterol Fumarate 2 puff 12/12/19 22:00 12/14/19 09:41 Symbicort 160/4.5mcg - IH 2 puff BID [facility] Administration Bupropion HCl 300 mg 12/13/19 17:30 12/14/19 09:40 Wellbutrin Xl - PO 300 mg DAILY [facility] Administration Calcium/Vitamin D 2 tab 12/12/19 21:30 12/14/19 09:40 Oscal 250 Mg+D - PO 2 tab DAILY [facility] Administration Carbidopa/Levodopa 1 each 12/14/19 10:00 12/14/19 09:40 Sinemet 25/100 - PO 1 each DAILY [facility] Administration Duloxetine HCl 60 mg 12/13/19 22:00 12/14/19 09:40 Cymbalta - PO 60 mg BID [facility] Administration Enoxaparin Sodium 40 mg 12/14/19 10:00 12/14/19 09:40 Lovenox - SQ 40 mg DAILY [facility] Administration Finasteride 5 mg 12/13/19 17:15 12/14/19 09:40 Proscar - PO 5 mg DAILY [facility] Administration Furosemide 40 mg 12/14/19 10:24 12/14/19 13:57 Lasix Injection - IVPB 40 mg BIDLASIX [facility] Administration Gabapentin 600 mg 12/13/19 17:15 12/14/19 09:40 Neurontin - PO 600 mg DAILY [facility] Administration Potassium Phosphate 15 mm/ 255 mls @ 62.5 mls/hr 12/14/19 11:33 Sodium Chloride IVPB 12/14/19 15:37 ONCE ONE Influenza Virus Vaccine 60 mcg 12/13/19 08:00 Flulaval Quad [id number] Syr IM 12/13/19 08:01 .ONCE ONE Insulin Aspart 1 vial 12/13/19 16:30 12/14/19 11:24 Novolog Vial Sliding Scale - SQ Not Given ACHS [facility] Protocol Isosorbide Mononitrate 60 mg 12/14/19 10:00 12/14/19 09:40 Imdur - PO 60 mg DAILY [facility] Administration Levalbuterol HCl 0.63 mg 12/12/19 21:11 Xopenex IH Q8H PRN ASTHMA Levalbuterol HCl 0.63 mg 12/13/19 08:00 Xopenex IH RTID [facility] Loratadine 10 mg 12/14/19 10:00 12/14/19 09:40 Claritin - PO 10 mg DAILY [facility] Administration Losartan Potassium 25 mg 12/14/19 10:00 12/14/19 09:40 Cozaar - PO 25 mg DAILY [facility] Administration Metoprolol Succinate 50 mg 12/13/19 17:30 12/14/19 09:40 Toprol Xl - PO 50 mg DAILY [facility] Administration Mirtazapine 15 mg 12/13/19 22:00 12/13/19 21:14 Remeron - PO 15 mg HS [facility] Administration Pantoprazole Sodium 20 mg 12/15/19 10:00 Protonix - PO DAILY [facility] Pneumococcal 13-Valent Conj Vacc 0.5 ml 12/13/19 08:00 Prevnar 13 Syringe - IM 12/13/19 08:01 .ONCE ONE Ranolazine 500 mg 12/13/19 17:30 12/14/19 09:39 Ranexa - PO 500 mg DAILY [facility] Administration Tamsulosin HCl 0.4 mg 12/13/19 20:30 12/14/19 09:40 Flomax - PO 0.4 mg BID@ [facility] Administration Tiotropium [place] 2 puff 12/13/19 17:30 12/14/19 09:41 Spiriva Respimat IH 2 puff DAILY [facility] Administration Home Medications Medication Instructions Recorded Cetirizine HCl [Zyrtec] 10 mg PO DAILY 12/12/19 Furosemide [Lasix] 80 mg PO DAILY 12/12/19 Pantoprazole Sodium 40 mg PO DAILY 12/12/19 Amlodipine Besylate 5 mg PO DAILY 12/13/19 Carbidopa-Levodopa 25-100 Tab 25 - 100 mg PO DAILY 12/13/19 Cetirizine HCl [Zyrtec] 10 mg PO DAILY 12/13/19 Clopidogrel Bisulfate [Plavix] 75 mg PO DAILY 12/13/19 Combivent Respimat 20-100 Mcg 12/13/19 Duloxetine HCl 60 mg PO BID 12/13/19 Finasteride 5 mg PO DAILY 12/13/19 Gabapentin 600 mg PO DAILY 12/13/19 Isosorbide Mononitrate ER 60 mg PO DAILY 12/13/19 Lantus 26 units SQ HS 12/13/19 Losartan Potassium 25 mg PO DAILY 12/13/19 Metoprolol Succinate 50 mg PO DAILY 12/13/19 Mirtazapine 15 mg PO HS 12/13/19 Novolog 6 unit SQ AC 12/13/19 Ranolazine ER 500 mg PO DAILY 12/13/19 Spiriva 18 mcg IH 12/13/19 Tamsulosin HCl [Flomax] 0.4 mg PO BID 12/13/19 Wellbutrin - 300 mg PO DAILY 12/13/19 ASSESSMENT/PLAN: 79 year old male with history of CRF sec to COPD (on 3L NC at home), Chronic Diastolic CHF, HTN, CAD s/p stents x 3, DM 2, Parkinson's Disease, BPH, Anxiety/Depression, presents with progressive dyspnea, worse on exertion, and reported hypoxia. 1. Acute on Chronic Hypoxic Respiratory Failure secondary to Acute Diastolic CHF decompensation CXR - cardiomegaly, congestion. BNP 863.4 CTA Chest - no PE, bilateral pleural effusions and pulmonary vascular congestion, bibasilar atelectasis, ?RUL infiltrate Received empiric Ceftriaxone/Azithro in ED for possible pneumonia - discontinued for now. Afebrile without leukocytosis. No evidence of COPD Exacerbation - steroids stopped. continue Lasix 40 mg IV BID Echo ordered. Cardio and Pulm following. COVID PCR negative. 2. Chronic Respiratory Failure secondary to COPD - no evidence of acute exacerbation Continue Xopenex PRN, Symbicort, Spiriva. Steroids and Abx stopped. Pulm following 3. Hypocalcemia - possible lab error, corrected, will monitor. 4. Iron deficiency Anemia, Microcytosis. No history of reported GI blood loss. No evidence of acute GI blood loss. GI evaluated - Guiaic negative, recommend colonoscopy +/- endoscopy at [facility] once acute medical issues are resolved Continue PPI Can resume anti-platelet 5. DM 2 - Maintain on Novolog sliding scale. 6. HTN - Norvasc, ISMN, Metoprolol, Losartan 7. Parkinson's Disease - continue Carbidopa-Levodopa (dosing needs clarification) 8. BPH - Continue Tamsulosin, Finasteride 9. CAD s/p PCI/Stents - normally on Plavix, BB, ARB - will confirm and resume 9. Hypophosphatemia - repleted. 10. Anxiety/Depression - continue Wellbutrin, Mirtazapine, Duloxetine. DVT Px - Lovenox SQ
--- NOTE | 2019-12-14 14:34 | PN ---
Physical Exam: SUBJECTIVE: Patient seen and examined. Less SOB, yellow sputum cough persists. Denies fever, chills, chest pain, hemoptysis. OBJECTIVE: Vital Signs Period Temp Pulse Resp BP Sys/Cole Pulse Ox Last 24 Hr 97.0 F-97.7 F 60-73 20-20 129-135/57-71 95-96 CONSTITUTIONAL: Absent: fever, chills, diaphoresis, generalized weakness, malaise, loss of appetite, weight change HEENT: Absent: rhinorrhea, nasal congestion, throat pain, throat swelling, difficulty swallowing, mouth swelling, ear pain, eye pain, visual changes CARDIOVASCULAR: Absent: chest pain, syncope, palpitations, irregular heart rate, lightheadedness, peripheral edema RESPIRATORY: SOB, orthopnea, cough productive with sputum Absent: stridor, hemoptysis, wheezing GASTROINTESTINAL: Absent: abdominal pain, abdominal distension, nausea, vomiting, diarrhea, constipation, melena, hematochezia GENITOURINARY: Absent: dysuria, frequency, urgency, hesitancy, hematuria, flank pain, genital pain MUSCULOSKELETAL: Absent: myalgia, arthralgia, joint swelling, back pain, neck pain SKIN: chronic venous stasis changes, edematous Absent: rash, itching, pallor HEMATOLOGIC/IMMUNOLOGIC: Absent: easy bleeding, easy bruising, lymphadenopathy, frequent infections ENDOCRINE: Absent: unexplained weight gain, unexplained weight loss, heat intolerance, cold intolerance NEUROLOGIC: Absent: headache, focal weakness or paresthesias, dizziness, unsteady gait, seizure, mental status changes, bladder or bowel incontinence PSYCHIATRIC: Absent: anxiety, depression, suicidal or homicidal ideation, hallucinations. Laboratory Results - last 24 hr 12/12/19 12/13/19 12/13/19 21:55 06:25 17:00 WBC RBC Hgb Hct MCV MCH MCHC RDW Plt Count MPV Absolute Neuts (auto) Neutrophils % Lymphocytes % Monocytes % Eosinophils % Basophils % Nucleated RBC % Sodium Potassium Chloride Carbon Dioxide Anion Gap BUN Creatinine Est GFR (CKD-EPI)AfAm Est GFR (CKD-EPI)NonAf POC Glucometer 230 Random Glucose Calcium Phosphorus Magnesium Total Bilirubin AST ALT Alkaline Phosphatase Total Protein Albumin PTH Intact 92 H COVID-19 ([facility]) Not detected 12/13/19 12/14/19 12/14/19 20:46 06:26 09:50 WBC 8.0 RBC 5.05 Hgb 10.4 L Hct 34.1 L MCV 67.5 L MCH 20.5 L MCHC 30.4 L RDW 20.3 H Plt Count 291 MPV 8.1 Absolute Neuts (auto) 5.8 Neutrophils % 71.9 D Lymphocytes % 15.0 D Monocytes % 12.2 H D Eosinophils % 0.6 D Basophils % 0.3 Nucleated RBC % 0 Sodium Potassium Chloride Carbon Dioxide Anion Gap BUN Creatinine Est GFR (CKD-EPI)AfAm Est GFR (CKD-EPI)NonAf POC Glucometer 139 125 Random Glucose Calcium Phosphorus Magnesium Total Bilirubin AST ALT Alkaline Phosphatase Total Protein Albumin PTH Intact COVID-19 ([facility]IM[facility]) 12/14/19 12/14/19 09:50 11:22 WBC RBC Hgb Hct MCV MCH MCHC RDW Plt Count MPV Absolute Neuts (auto) Neutrophils % Lymphocytes % Monocytes % Eosinophils % Basophils % Nucleated RBC % Sodium 144 Potassium 4.0 Chloride 101 Carbon Dioxide 42 H Anion Gap 0 L BUN 24.2 H Creatinine 1.3 Est GFR (CKD-EPI)AfAm 60.57 Est GFR (CKD-EPI)NonAf 52.26 POC Glucometer 139 Random Glucose 161 H Calcium 8.6 Phosphorus 2.3 L Magnesium 2.3 Total Bilirubin 0.3 AST 16 ALT 17 Alkaline Phosphatase 134 H Total Protein 6.7 Albumin 2.8 L PTH Intact COVID-19 ([facility]) Active Medications Generic Name Dose Route Start Last Admin Trade Name Shekharq PRN Reason Stop Dose Admin Amlodipine Besylate 5 mg 12/14/19 10:00 12/14/19 09:40 Norvasc - PO 5 mg DAILY [facility] Administration Budesonide/Formoterol Fumarate 2 puff 12/12/19 22:00 12/14/19 09:41 Symbicort 160/4.5mcg - IH 2 puff BID [facility] Administration Bupropion HCl 300 mg 12/13/19 17:30 12/14/19 09:40 Wellbutrin Xl - PO 300 mg DAILY [facility] Administration Calcium/Vitamin D 2 tab 12/12/19 21:30 12/14/19 09:40 Oscal 250 Mg+D - PO 2 tab DAILY [facility] Administration Carbidopa/Levodopa 1 each 12/14/19 10:00 12/14/19 09:40 Sinemet 25/100 - PO 1 each DAILY [facility] Administration Duloxetine HCl 60 mg 12/13/19 22:00 12/14/19 09:40 Cymbalta - PO 60 mg BID [facility] Administration Enoxaparin Sodium 40 mg 12/14/19 10:00 12/14/19 09:40 Lovenox - SQ 40 mg DAILY [facility] Administration Finasteride 5 mg 12/13/19 17:15 12/14/19 09:40 Proscar - PO 5 mg DAILY [facility] Administration Furosemide 40 mg 12/14/19 10:24 12/14/19 13:57 Lasix Injection - IVPB 40 mg BIDLASIX [facility] Administration Gabapentin 600 mg 12/13/19 17:15 12/14/19 09:40 Neurontin - PO 600 mg DAILY [facility] Administration Potassium Phosphate 15 mm/ 255 mls @ 62.5 mls/hr 12/14/19 11:33 Sodium Chloride IVPB 12/14/19 15:37 ONCE ONE Influenza Virus Vaccine 60 mcg 12/13/19 08:00 Flulaval Quad [id number] Syr IM 12/13/19 08:01 .ONCE ONE Insulin Aspart 1 vial 12/13/19 16:30 12/14/19 11:24 Novolog Vial Sliding Scale - SQ Not Given ACHS [facility] Protocol Isosorbide Mononitrate 60 mg 12/14/19 10:00 12/14/19 09:40 Imdur - PO 60 mg DAILY [facility] Administration Levalbuterol HCl 0.63 mg 12/12/19 21:11 Xopenex IH Q8H PRN ASTHMA Levalbuterol HCl 0.63 mg 12/13/19 08:00 Xopenex IH RTID [facility] Loratadine 10 mg 12/14/19 10:00 12/14/19 09:40 Claritin - PO 10 mg DAILY [facility] Administration Losartan Potassium 25 mg 12/14/19 10:00 12/14/19 09:40 Cozaar - PO 25 mg DAILY [facility] Administration Metoprolol Succinate 50 mg 12/13/19 17:30 12/14/19 09:40 Toprol Xl - PO 50 mg DAILY [facility] Administration Mirtazapine 15 mg 12/13/19 22:00 12/13/19 21:14 Remeron - PO 15 mg HS [facility] Administration Pantoprazole Sodium 20 mg 12/15/19 10:00 Protonix - PO DAILY [facility] Pneumococcal 13-Valent Conj Vacc 0.5 ml 12/13/19 08:00 Prevnar 13 Syringe - IM 12/13/19 08:01 .ONCE ONE Ranolazine 500 mg 12/13/19 17:30 12/14/19 09:39 Ranexa - PO 500 mg DAILY [facility] Administration Tamsulosin HCl 0.4 mg 12/13/19 20:30 12/14/19 09:40 Flomax - PO 0.4 mg BID@0830,2030 [facility] Administration Tiotropium [place] 2 puff 12/13/19 17:30 12/14/19 09:41 Spiriva Respimat IH 2 puff DAILY [facility] Administration ASSESSMENT/PLAN: 79 year old male with history of CRF sec to COPD (on 3L NC at home), Chronic Diastolic CHF, HTN, CAD s/p stents x 3, DM 2, Parkinson's Disease, BPH, Anxiety/Depression, presents with progressive dyspnea, worse on exertion, and reported hypoxia. #Acute on chronic hypoxic respiratory failure secondary to acuter diastolic CHF decompensation -CXR reviewed; cardiomegaly and congestion -Lasix 40mg IV BID -BNP 863.4 -Echo completed, pending official report - consulted cardio (Dr. Marrero) -sputum culture ordered -Urine legionella and strep pneumo ordered -consulted pulm (Dr. Sheppard) -on 3L NC, at baseline #Hypocalcemia -corrected -continue to monitor #Iron deficiency Anemia -GI consulted; negative FOBT per GI -colonoscopy +- endoscopy after acute medical issues resolve #Hx DM -SSI and BGM #Hx HTN -Lasix 40mg IV BID -continue to monitor clinical status #Hx Parkinsons -continue Carbidopa-levodopa #Hx BPH -med rec in AM, pt unsure FEN No standing fluids Monitor lytes -Diabetic/sodium controlled diet PPx Lovenox 40mg BID Dispo Admit to tele. Treatment for CHF and COPD. Consulted cardio, pulm, GI. ATTENDING PHYSICIAN STATEMENT I saw and evaluated the patient. I reviewed the resident's note and discussed the case with the resident. I agree with the resident's findings and plan as documented. SUBJECTIVE: OBJECTIVE: ASSESSMENT AND PLAN:
[2019-12-14] MEDS: MIRTAZAPINE 15 MG TABLET (FP) PO SCH (21:37)
[2019-12-15] MEDS: FUROSEMIDE 40 MG/4 ML INJECTABLE VIAL IVPB SCH ×2 (06:15→13:15)
[2019-12-15] MEDS: INSULIN SLIDING SCALE (NOVOLOG) 1 VIAL SQ SCH ×2 (06:28→11:13)
--- NOTE | 2019-12-15 07:14 | PN ---
Progress Note, Physician History of Present Illness: pulmonary alert,feeling better,less dyspneic - Current Medication List Current Medications: Active Medications Amlodipine Besylate (Norvasc -) 5 mg PO DAILY [facility] Last Admin: 12/14/19 09:40 Dose: 5 mg Documented by: Budesonide/Formoterol Fumarate (Symbicort 160/4.5mcg -) 2 puff IH BID [facility] Last Admin: 12/14/19 21:39 Dose: 2 puff Documented by: Bupropion HCl (Wellbutrin Xl -) 300 mg PO DAILY [facility] Last Admin: 12/14/19 09:40 Dose: 300 mg Documented by: Calcium/Vitamin D (Oscal 250 Mg+D -) 2 tab PO DAILY [facility] Last Admin: 12/14/19 09:40 Dose: 2 tab Documented by: Carbidopa/Levodopa (Sinemet 25/100 -) 1 each PO DAILY [facility] Last Admin: 12/14/19 09:40 Dose: 1 each Documented by: Duloxetine HCl (Cymbalta -) 60 mg PO BID [facility] Last Admin: 12/14/19 21:38 Dose: 60 mg Documented by: Enoxaparin Sodium (Lovenox -) 40 mg SQ DAILY [facility] Last Admin: 12/14/19 09:40 Dose: 40 mg Documented by: Finasteride (Proscar -) 5 mg PO DAILY [facility] Last Admin: 12/14/19 09:40 Dose: 5 mg Documented by: Furosemide (Lasix Injection -) 40 mg IVPB BIDLASIX [facility] Last Admin: 12/15/19 06:15 Dose: 40 mg Documented by: Gabapentin (Neurontin -) 600 mg PO DAILY [facility] Last Admin: 12/14/19 09:40 Dose: 600 mg Documented by: Influenza Virus Vaccine (Flulaval Quad [id number] Syr) 60 mcg IM .ONCE ONE Stop: 12/13/19 08:01 Insulin Aspart (Novolog Vial Sliding Scale -) 1 vial SQ [facility]; Protocol Last Admin: 12/15/19 06:28 Dose: Not Given Documented by: Isosorbide Mononitrate (Imdur -) 60 mg PO DAILY [facility] Last Admin: 12/14/19 09:40 Dose: 60 mg Documented by: Levalbuterol HCl (Xopenex) 0.63 mg IH Q8H PRN PRN Reason: ASTHMA Levalbuterol HCl (Xopenex) 0.63 mg IH RTID [facility] Loratadine (Claritin -) 10 mg PO DAILY [facility] Last Admin: 12/14/19 09:40 Dose: 10 mg Documented by: Losartan Potassium (Cozaar -) 25 mg PO DAILY [facility] Last Admin: 12/14/19 09:40 Dose: 25 mg Documented by: Metoprolol Succinate (Toprol Xl -) 50 mg PO DAILY [facility] Last Admin: 12/14/19 09:40 Dose: 50 mg Documented by: Mirtazapine (Remeron -) 15 mg PO HS [facility] Last Admin: 12/14/19 21:37 Dose: 15 mg Documented by: Pantoprazole Sodium (Protonix -) 20 mg PO DAILY [facility] Pneumococcal 13-Valent Conj Vacc (Prevnar 13 Syringe -) 0.5 ml IM .ONCE ONE Stop: 12/13/19 08:01 Ranolazine (Ranexa -) 500 mg PO DAILY [facility] Last Admin: 12/14/19 09:39 Dose: 500 mg Documented by: Tamsulosin HCl (Flomax -) 0.4 mg PO BID@0830,2029 [facility] Last Admin: 12/14/19 20:24 Dose: 0.4 mg Documented by: Tiotropium [place] (Spiriva Respimat) 2 puff IH DAILY [facility] Last Admin: 12/14/19 09:41 Dose: 2 puff Documented by: - Objective Vital Signs: Vital Signs Temperature 97.5 F L 12/15/19 06:00 Pulse Rate 68 12/15/19 06:00 Respiratory Rate 20 12/15/19 06:00 Blood Pressure 141/75 12/15/19 06:00 O2 Sat by Pulse Oximetry (%) 94 L 12/15/19 02:00 Constitutional: Yes: Well Nourished, Obese Eyes: Yes: WNL HENT: Yes: WNL Neck: Yes: WNL Cardiovascular: Yes: Regular Rate and Rhythm, S1, S2 Respiratory: Yes: Rales (bibasailr rales) Gastrointestinal: Yes: Normal Bowel Sounds, Abdomen, Obese Extremities: Yes: WNL Edema: Yes Labs: Laboratory Tests 12/15/19 12/15/19 05:40 05:40 WBC 5.4 Hgb 9.3 L Hct 30.1 L Plt Count 236 Potassium 3.3 L BUN 22.1 H Creatinine 1.0 Assessment/Plan - Problems (1) Pleural effusion due to CHF (congestive heart failure) Code(s): I50.9 - HEART FAILURE, UNSPECIFIED (2) Atelectasis of both lungs Code(s): J98.11 - ATELECTASIS (3) Dyspnea Code(s): R06.00 - DYSPNEA, UNSPECIFIED (4) Dyspnea due to congestive heart failure Code(s): I50.9 - HEART FAILURE, UNSPECIFIED (5) COPD (chronic obstructive pulmonary disease) Code(s): J44.9 - CHRONIC OBSTRUCTIVE PULMONARY DISEASE, UNSPECIFIED (6) Chronic bronchitis Code(s): J42 - UNSPECIFIED CHRONIC BRONCHITIS (7) Obesity (BMI 30-39.9) Code(s): E66.9 - OBESITY, UNSPECIFIED (8) Congestive heart failure Code(s): I50.9 - HEART FAILURE, UNSPECIFIED Assessment/Plan IMP: Suspected decompensated CHF rather than AE OF COPD Likely OSAS PLAN: Symbicort BID Xopenex Lasix IVP BID VTE prophylaxis Follow I & O Follow Daily weight No smoking Sleep screen Supplemental O2 as needed DR BHAGAT
[2019-12-15 07:16] LABS: BASO % 0.4 % (0-2.0); EOS % 2.3 % (0-4.5); HEMATOCRIT 30.1 % (35.4-49); HEMOGLOBIN 9.3 GM/dL (11.7-16.9); LYMPH % 14.5 % (8-40); MCH 20.6 pg (25.7-33.7); MCHC 30.7 g/dl (32.0-35.9); MEAN PLT VOLUME 8.7 fl (7.5-11.1); MONO % 14.8 % (3.8-10.2); PLATELET COUNT 236 K/MM3 (134-434); RBC 4.49 M/mm3 (4.00-5.60); WHITE BLOOD COUNT 5.4 K/mm3 (4.0-10.0)
[2019-12-15 07:37] LABS: BLOOD UREA NITROGEN 22.1 mg/dL (7-18); MAGNESIUM 2.3 mg/dL (1.8-2.4); POTASSIUM 3.3 mmol/L (3.5-5.1)
[2019-12-15] MEDS: TAMSULOSIN HCL 0.4 MG CAP PO SCH (07:47)
[2019-12-15] MEDS ORDERED: POTASSIUM CHLORIDE TABS 20 MEQ TABLET.ER (FP) PO ONE (08:30)
[2019-12-15] MEDS ORDERED: PT OWN MED DRAWER 7, Y5N ONE (08:35)
[2019-12-15] MEDS: LORATADINE 10 MG TABLET PO SCH (09:23)
[2019-12-15] MEDS: GABAPENTIN 300 MG CAPSULE PO SCH (09:23)
[2019-12-15] MEDS: RANOLAZINE E.R. 500 MG TABLET (FP) PO SCH (09:23)
[2019-12-15] MEDS: FINASTERIDE 5 MG TABLET (FP) PO SCH (09:23)
[2019-12-15] MEDS: amLODIPine BESYLATE 5 MG TABLET (FP) PO SCH (09:23)
[2019-12-15] MEDS: ISOSORBIDE MONONITRATE 60 MG TAB.SR.24H (FP) PO SCH (09:23)
[2019-12-15] MEDS: LOSARTAN POTASSIUM 25 MG TABLET PO SCH (09:23)
[2019-12-15] MEDS: DULoxetine HCL 30 MG CAPSULE.DR PO SCH (09:23)
[2019-12-15] MEDS: TIOTROPIUM BROMIDE 2.5 MCG (SPIRIVA) RESPIMAT INHALER IH SCH (09:24)
[2019-12-15] MEDS: ENOXAPARIN NA (PORCINE) 40 MG/0.4 ML DISP.SYRIN SQ SCH (09:24)
[2019-12-15] MEDS: BUDESONIDE/FORMETEROL FUMARATE 160/4.5 mcg INHALER IH SCH (09:25)
[2019-12-15] MEDS ORDERED: PANTOPRAZOLE 20 MG TABLET PO SCH (10:00)
[2019-12-15] MEDS ORDERED: PATIENT'S OWN MEDICATION (NON-FORMULARY) (Bupropion Hcl [Wellbutrin Xl] 300 MG) PO SCH (10:00)
[2019-12-15] MEDS: CARBIDOPA/LEVODOPA 25/100 TABLET (FP) PO SCH (10:28)
[2019-12-15] MEDS: CALCIUM 250MG/VIT-D 125 UNITS 1 COMBO TABLET PO SCH (10:28)
[2019-12-15] MEDS ORDERED: SODIUM CHLORIDE FOR INHALATION 3 ML VIAL.NEB IH ONE (11:52)
--- NOTE | 2019-12-15 12:51 | PN ---
Progress Note (short form) - Note Progress Note: Chief Complaint: shortness of breath s: no cp palps dizzy, minimal shortness of breath with walking in the halls Current Medications Generic Name Dose Route Start Last Admin Trade Name Keisha PRN Reason Stop Dose Admin Amlodipine Besylate 5 mg 12/14/19 10:00 12/15/19 09:23 Norvasc - PO 5 mg DAILY [facility] Administration Budesonide/Formoterol Fumarate 2 puff 12/12/19 22:00 12/15/19 09:25 Symbicort 160/4.5mcg - IH 2 puff BID [facility] Administration Bupropion HCl 300 mg 12/13/19 17:30 12/15/19 09:23 Wellbutrin Xl - PO 300 mg DAILY [facility] Administration Calcium/Vitamin D 2 tab 12/12/19 21:30 12/15/19 10:28 Oscal 250 Mg+D - PO 2 tab DAILY [facility] Administration Carbidopa/Levodopa 1 each 12/14/19 10:00 12/15/19 10:28 Sinemet 25/100 - PO 1 each DAILY [facility] Administration Duloxetine HCl 60 mg 12/13/19 22:00 12/15/19 09:23 Cymbalta - PO 60 mg BID [facility] Administration Enoxaparin Sodium 40 mg 12/14/19 10:00 12/15/19 09:24 Lovenox - SQ 40 mg DAILY [facility] Administration Finasteride 5 mg 12/13/19 17:15 12/15/19 09:23 Proscar - PO 5 mg DAILY [facility] Administration Furosemide 40 mg 12/14/19 10:24 12/15/19 06:15 Lasix Injection - IVPB 40 mg BIDLASIX [facility] Administration Gabapentin 600 mg 12/13/19 17:15 12/15/19 09:23 Neurontin - PO 600 mg DAILY [facility] Administration Influenza Virus Vaccine 60 mcg 12/13/19 08:00 Flulaval Quad [id number] Syr IM 12/13/19 08:01 .ONCE ONE Insulin Aspart 1 vial 12/13/19 16:30 12/15/19 11:13 Novolog Vial Sliding Scale - SQ 1 units ACHS [facility] Administration Protocol Isosorbide Mononitrate 60 mg 12/14/19 10:00 12/15/19 09:23 Imdur - PO 60 mg DAILY [facility] Administration Levalbuterol HCl 0.63 mg 12/12/19 21:11 Xopenex IH Q8H PRN ASTHMA Levalbuterol HCl 0.63 mg 12/13/19 08:00 Xopenex IH RTID [facility] Loratadine 10 mg 12/14/19 10:00 12/15/19 09:23 Claritin - PO 10 mg DAILY [facility] Administration Losartan Potassium 25 mg 12/14/19 10:00 12/15/19 09:23 Cozaar - PO 25 mg DAILY [facility] Administration Metoprolol Succinate 50 mg 12/13/19 17:30 12/15/19 10:28 Toprol Xl - PO 50 mg DAILY [facility] Administration Mirtazapine 15 mg 12/13/19 22:00 12/14/19 21:37 Remeron - PO 15 mg HS [facility] Administration Pantoprazole Sodium 20 mg 12/15/19 10:00 12/15/19 09:23 Protonix - PO 20 mg DAILY [facility] Administration Pneumococcal 13-Valent Conj Vacc 0.5 ml 12/13/19 08:00 Prevnar 13 Syringe - IM 12/13/19 08:01 .ONCE ONE Ranolazine 500 mg 12/13/19 17:30 12/15/19 09:23 Ranexa - PO 500 mg DAILY [facility] Administration Sodium Chloride 3 ml 12/15/19 11:52 12/15/19 12:38 Normal Saline For Inhalation - IH 12/15/19 11:53 Not Given ONCE ONE Tamsulosin HCl 0.4 mg 12/13/19 20:30 12/15/19 07:47 Flomax - PO 0.4 mg BID@0830,2030 [facility] Administration Tiotropium [place] 2 puff 12/13/19 17:30 12/15/19 09:24 Spiriva Respimat IH 2 puff DAILY [facility] Administration Vital Signs Period Temp Pulse Resp BP Sys/Cole Pulse Ox Last 24 Hr 97.3 F-97.8 F 56-68 18-20 109-144/56-75 94-98 Constitutional: Yes: No Distress, Calm Eyes: Yes: Conjunctiva Clear, Ptosis HENT: Yes: Atraumatic, Normocephalic Neck: Yes: Supple, Trachea Midline Respiratory: Yes: Regular, dec bs bases nl eff Gastrointestinal: Yes: Normal Bowel Sounds, Soft Cardiovascular: Yes: Regular Rate and Rhythm JVD: No Heart Sounds: Yes: S1, S2 Musculoskeletal: No: Back Pain Extremities: No: Cold Edema: Yes, trace Integumentary: No: Jaundice Neurological: Yes: Alert, Oriented Psychiatric: No: Agitated Laboratory Last Values WBC 5.4 K/mm3 (4.0-10.0) 12/15/19 05:40 RBC 4.49 M/mm3 (4.00-5.60) 12/15/19 05:40 Hgb 9.3 GM/dL (11.7-16.9) L 12/15/19 05:40 Hct 30.1 % (35.4-49) L 12/15/19 05:40 MCV 67.0 fl (80-96) L 12/15/19 05:40 MCH 20.6 pg (25.7-33.7) L 12/15/19 05:40 MCHC 30.7 g/dl (32.0-35.9) L 12/15/19 05:40 RDW 20.0 % (11.9-15.9) H 12/15/19 05:40 Plt Count 236 K/MM3 (134-434) 12/15/19 05:40 MPV 8.7 fl (7.5-11.1) 12/15/19 05:40 Absolute Neuts (auto) 3.7 K/mm3 (1.5-8.0) 12/15/19 05:40 Neutrophils % 68.0 % (42.8-82.8) 12/15/19 05:40 Lymphocytes % 14.5 % (8-40) 12/15/19 05:40 Monocytes % 14.8 % (3.8-10.2) H 12/15/19 05:40 Eosinophils % 2.3 % (0-4.5) D 12/15/19 05:40 Basophils % 0.4 % (0-2.0) 12/15/19 05:40 Nucleated RBC % 0 % (0-0) 12/15/19 05:40 Hypochromia 2+ 12/12/19 10:28 Poikilocytosis 1+ 12/12/19 10:28 Anisocytosis 2+ 12/12/19 10:28 Microcytosis 2+ 12/12/19 10:28 Schistocytes 1+ 12/12/19 10:28 Retic Count 1.68 % (0.5-1.5) H 12/13/19 06:25 Sodium 140 mmol/L (136-145) 12/15/19 05:40 Potassium 3.3 mmol/L (3.5-5.1) L 12/15/19 05:40 Chloride 100 mmol/L (98-107) 12/15/19 05:40 Carbon Dioxide 38 mmol/L (21-32) H 12/15/19 05:40 Anion Gap 3 MMOL/L (8-16) L 12/15/19 05:40 BUN 22.1 mg/dL (7-18) H 12/15/19 05:40 Creatinine 1.0 mg/dL (0.55-1.3) 12/15/19 05:40 Est GFR (CKD-EPI)AfAm 83.18 12/15/19 05:40 Est GFR (CKD-EPI)NonAf 71.77 12/15/19 05:40 POC Glucometer 165 UNITS (80-120) 12/15/19 11:11 Random Glucose 126 mg/dL (74-106) H 12/15/19 05:40 Calcium 8.0 mg/dL (8.5-10.1) L 12/15/19 05:40 Phosphorus 3.0 mg/dL (2.5-4.9) 12/15/19 05:40 Magnesium 2.3 mg/dL (1.8-2.4) 12/15/19 05:40 Iron 18 ug/dL (50-175) L 12/13/19 06:25 TIBC 285 ug/dL (250-450) 12/13/19 06:25 Iron Saturation 6 % (17.5-39) L 12/13/19 06:25 Unsaturated IBC 267 ug/dL (200-275) 12/13/19 06:25 Ferritin 39.3 ng/ml (8-388) 12/13/19 06:25 Total Bilirubin 0.3 mg/dL (0.2-1) 12/14/19 09:50 AST 16 U/L (15-37) 12/14/19 09:50 ALT 17 U/L (13-61) 12/14/19 09:50 Alkaline Phosphatase 134 U/L (45-117) H 12/14/19 09:50 LD Total 136 U/L (87-246) 12/13/19 06:25 Creatine Kinase 47 U/L (26-308) 12/12/19 10:28 Troponin I < 0.02 ng/ml (0.00-0.05) 12/12/19 10:28 B-Natriuretic Peptide 863.4 pg/ml (5-450) H 12/13/19 06:25 Total Protein 6.7 g/dl (6.4-8.2) 12/14/19 09:50 Albumin 2.8 g/dl (3.4-5.0) L 12/14/19 09:50 PTH Intact 92 pg/mL (15-65) H 12/13/19 06:25 COVID-19 (DIMAS) Not detected (Not Detected) 12/12/19 21:55 Assessment/Plan EKG: sinus, first deg AV block, no ischemic changes echo 12/2019 tds, nl LV/RV function, mild TR tele: sinus shortness of breath, acute heart failure, EF not known - echo unremarkable - was on lasix at home 80 mg daily - elevated BNP, congestion on CXR - likely component of CHF exacerbation - pulm consulted as well - also on abx for ?PNA - continue IV lasix, dyspnea improving - monitor Cr, lytes, daily weights COPD - on home O2 - pulm consulted CAD - history of 3 stents, patient not sure of details - unclear if on statin, aspirin - not on meds list, patient not sure of meds -cont bb, arb, ranexa, imdur, ccb - would clarify meds and start aspirin, statin if no contraindication HTN - stable, cont current meds DM - manage per primary anemia - GI consulted
[2019-12-15 14:09] VITALS: BP 122/61; PULSE 68; TEMP 97.3
--- NOTE | 2019-12-15 14:59 | PN ---
Teaching Attending Note Name of Resident: Vidya Rankin ATTENDING PHYSICIAN STATEMENT I saw and evaluated the patient. I reviewed the resident's note and discussed the case with the resident. I agree with the resident's findings and plan as documented. SUBJECTIVE: pt seen and examined OBJECTIVE: Last Vital Signs Temp Pulse Resp BP Pulse Ox 97.3 F L 68 20 122/61 98 12/15/19 14:00 12/15/19 14:00 12/15/19 14:00 12/15/19 14:00 12/15/19 14:00 Heart- S1, S2, SM Lungs - decreased air entry/few crackles at bases, no wheeze. Abdomen - High BMI. Soft, non-tender. Bowel Sounds normal. Extremities - edema +, erythema/venous stasis skin changes/tender. Neuro - AAO x 3. Tone/Power normal. CBCD WBC 5.4 K/mm3 (4.0-10.0) 12/15/19 05:40 RBC 4.49 M/mm3 (4.00-5.60) 12/15/19 05:40 Hgb 9.3 GM/dL (11.7-16.9) L 12/15/19 05:40 Hct 30.1 % (35.4-49) L 12/15/19 05:40 MCV 67.0 fl (80-96) L 12/15/19 05:40 MCHC 30.7 g/dl (32.0-35.9) L 12/15/19 05:40 RDW 20.0 % (11.9-15.9) H 12/15/19 05:40 Plt Count 236 K/MM3 (134-434) 12/15/19 05:40 MPV 8.7 fl (7.5-11.1) 12/15/19 05:40 CMP Sodium 140 mmol/L (136-145) 12/15/19 05:40 Potassium 3.3 mmol/L (3.5-5.1) L 12/15/19 05:40 Chloride 100 mmol/L (98-107) 12/15/19 05:40 Carbon Dioxide 38 mmol/L (21-32) H 12/15/19 05:40 Anion Gap 3 MMOL/L (8-16) L 12/15/19 05:40 BUN 22.1 mg/dL (7-18) H 12/15/19 05:40 Creatinine 1.0 mg/dL (0.55-1.3) 12/15/19 05:40 Calcium 8.0 mg/dL (8.5-10.1) L 12/15/19 05:40 Total Bilirubin 0.3 mg/dL (0.2-1) 12/14/19 09:50 AST 16 U/L (15-37) 12/14/19 09:50 ALT 17 U/L (13-61) 12/14/19 09:50 Alkaline Phosphatase 134 U/L (45-117) H 12/14/19 09:50 Total Protein 6.7 g/dl (6.4-8.2) 12/14/19 09:50 Albumin 2.8 g/dl (3.4-5.0) L 12/14/19 09:50 Active Medications Amlodipine Besylate (Norvasc -) 5 mg PO DAILY [facility] Last Admin: 12/15/19 09:23 Dose: 5 mg Documented by: Budesonide/Formoterol Fumarate (Symbicort 160/4.5mcg -) 2 puff IH BID [facility] Last Admin: 12/15/19 09:25 Dose: 2 puff Documented by: Bupropion HCl (Wellbutrin Xl -) 300 mg PO DAILY [facility] Last Admin: 12/15/19 09:23 Dose: 300 mg Documented by: Calcium/Vitamin D (Oscal 250 Mg+D -) 2 tab PO DAILY [facility] Last Admin: 12/15/19 10:28 Dose: 2 tab Documented by: Carbidopa/Levodopa (Sinemet 25/100 -) 1 each PO DAILY [facility] Last Admin: 12/15/19 10:28 Dose: 1 each Documented by: Duloxetine HCl (Cymbalta -) 60 mg PO BID [facility] Last Admin: 12/15/19 09:23 Dose: 60 mg Documented by: Enoxaparin Sodium (Lovenox -) 40 mg SQ DAILY [facility] Last Admin: 12/15/19 09:24 Dose: 40 mg Documented by: Finasteride (Proscar -) 5 mg PO DAILY [facility] Last Admin: 12/15/19 09:23 Dose: 5 mg Documented by: Furosemide (Lasix Injection -) 40 mg IVPB BIDLASIX [facility] Last Admin: 12/15/19 13:15 Dose: 40 mg Documented by: Gabapentin (Neurontin -) 600 mg PO DAILY [facility] Last Admin: 12/15/19 09:23 Dose: 600 mg Documented by: Influenza Virus Vaccine (Flulaval Quad Syr) 60 mcg IM .ONCE ONE Stop: 12/13/19 08:01 Insulin Aspart (Novolog Vial Sliding Scale -) 1 vial SQ [facility]; Protocol Last Admin: 12/15/19 11:13 Dose: 1 units Documented by: Isosorbide Mononitrate (Imdur -) 60 mg PO DAILY [facility] Last Admin: 12/15/19 09:23 Dose: 60 mg Documented by: Levalbuterol HCl (Xopenex) 0.63 mg IH Q8H PRN PRN Reason: ASTHMA Levalbuterol HCl (Xopenex) 0.63 mg IH RTID [facility] Loratadine (Claritin -) 10 mg PO DAILY [facility] Last Admin: 12/15/19 09:23 Dose: 10 mg Documented by: Losartan Potassium (Cozaar -) 25 mg PO DAILY [facility] Last Admin: 12/15/19 09:23 Dose: 25 mg Documented by: Metoprolol Succinate (Toprol Xl -) 50 mg PO DAILY [facility] Last Admin: 12/15/19 10:28 Dose: 50 mg Documented by: Mirtazapine (Remeron -) 15 mg PO HS [facility] Last Admin: 12/14/19 21:37 Dose: 15 mg Documented by: Pantoprazole Sodium (Protonix -) 20 mg PO DAILY [facility] Last Admin: 12/15/19 09:23 Dose: 20 mg Documented by: Pneumococcal 13-Valent Conj Vacc (Prevnar 13 Syringe -) 0.5 ml IM .ONCE ONE Stop: 12/13/19 08:01 Ranolazine (Ranexa -) 500 mg PO DAILY [facility] Last Admin: 12/15/19 09:23 Dose: 500 mg Documented by: Sodium Chloride (Normal Saline For Inhalation -) 3 ml IH ONCE ONE Stop: 12/15/19 11:53 Last Admin: 12/15/19 12:38 Dose: Not Given Documented by: Tamsulosin HCl (Flomax -) 0.4 mg PO BID@0830,2029 [facility] Last Admin: 12/15/19 07:47 Dose: 0.4 mg Documented by: Tiotropium [place] (Spiriva Respimat) 2 puff IH DAILY [facility] Last Admin: 12/15/19 09:24 Dose: 2 puff Documented by: ASSESSMENT AND PLAN: 79 year old man with history of CRF sec to COPD (on 3L NC at home), Chronic Diastolic CHF, HTN, CAD s/p stents x 3, DM 2, Parkinson's Disease, BPH, Anxiety/Depression, presents with progressive dyspnea, worse on exertion, and reported hypoxia. # Acute on Chronic Hypoxic Respiratory Failure secondary to Acute Diastolic CHF decompensation CXR - cardiomegaly, congestion. BNP 863.4 CTA Chest - no PE, bilateral pleural effusions and pulmonary vascular congestion, bibasilar atelectasis, ?RUL infiltrate Received empiric Ceftriaxone/Azithro in ED for possible pneumonia - discontinued for now. Afebrile without leukocytosis. No evidence of COPD Exacerbation - steroids stopped. switch to PO lasix Echo reviewed Cardio and Pulm following. COVID PCR negative. COPD Hypocalcemia Iron deficiency Anemia, Microcytosis. DM 2 HTN Parkinson's Disease BPH CAD s/p PCI/Stents Hypophosphatemia Anxiety/Depression DVT Px - Lovenox SQ
--- NOTE | 2019-12-15 15:00 | DS ---
Physical Exam: SUBJECTIVE: Patient seen and examined OBJECTIVE: Vital Signs Period Temp Pulse Resp BP Sys/Cole Pulse Ox Last 24 Hr 97.3 F-97.8 F 61-68 20-20 109-144/58-75 94-98 PHYSICAL EXAM GENERAL: The patient is awake, alert, and fully oriented, in no acute distress. HEAD: Normal with no signs of trauma. EYES: PERRL, extraocular movements intact, sclera anicteric, conjunctiva clear. ENT: Ears normal, nares patent, oropharynx clear without exudates, moist mucous membranes. NECK: Trachea midline, full range of motion, supple. LUNGS: Breath sounds equal, clear to auscultation bilaterally, no wheezes, no crackles, no accessory muscle use. HEART: Regular rate and rhythm, S1, S2 without murmur, rub or gallop. ABDOMEN: Soft, nontender, nondistended, normoactive bowel sounds, no guarding, no rebound, no hepatosplenomegaly, no masses. EXTREMITIES: 2+ pulses, warm, well-perfused, no edema. NEUROLOGICAL: Cranial nerves II through XII grossly intact. Normal speech, gait not observed. PSYCH: Normal mood, normal affect. SKIN: Warm, dry, normal turgor, no rashes or lesions noted. LABS Laboratory Results - last 24 hr 12/13/19 12/14/19 12/14/19 11:02 16:28 21:41 WBC RBC Hgb Hct MCV MCH MCHC RDW Plt Count MPV Absolute Neuts (auto) Neutrophils % Lymphocytes % Monocytes % Eosinophils % Basophils % Nucleated RBC % Sodium Potassium Chloride Carbon Dioxide Anion Gap BUN Creatinine Est GFR (CKD-EPI)AfAm Est GFR (CKD-EPI)NonAf POC Glucometer 127 151 Random Glucose Calcium Phosphorus Magnesium Vit D 1,25-Dihydroxy 41.3 12/15/19 12/15/19 12/15/19 05:37 05:40 05:40 WBC 5.4 RBC 4.49 Hgb 9.3 L Hct 30.1 L MCV 67.0 L MCH 20.6 L MCHC 30.7 L RDW 20.0 H Plt Count 236 MPV 8.7 Absolute Neuts (auto) 3.7 Neutrophils % 68.0 Lymphocytes % 14.5 Monocytes % 14.8 H Eosinophils % 2.3 D Basophils % 0.4 Nucleated RBC % 0 Sodium 140 Potassium 3.3 L Chloride 100 Carbon Dioxide 38 H Anion Gap 3 L BUN 22.1 H Creatinine 1.0 Est GFR (CKD-EPI)AfAm 83.18 Est GFR (CKD-EPI)NonAf 71.77 POC Glucometer 125 Random Glucose 126 H Calcium 8.0 L Phosphorus 3.0 Magnesium 2.3 Vit D 1,25-Dihydroxy 12/15/19 11:11 WBC RBC Hgb Hct MCV MCH MCHC RDW Plt Count MPV Absolute Neuts (auto) Neutrophils % Lymphocytes % Monocytes % Eosinophils % Basophils % Nucleated RBC % Sodium Potassium Chloride Carbon Dioxide Anion Gap BUN Creatinine Est GFR (CKD-EPI)AfAm Est GFR (CKD-EPI)NonAf POC Glucometer 165 Random Glucose Calcium Phosphorus Magnesium Vit D 1,25-Dihydroxy HOSPITAL COURSE: Date of Admission:12/12/19 Date of Discharge: 12/15/19 Minutes to complete discharge: 36 Discharge Summary Problems reviewed: Yes Reason For Visit: ACUTE ON CHRONIC CONGESTIVE HEART FAILURE Current Active Problems COPD (chronic obstructive pulmonary disease) (Acute) Congestive heart failure (Acute) Dyspnea (Acute) Dyspnea due to congestive heart failure (Acute) Obesity (BMI 30-39.9) (Acute) Pleural effusion due to CHF (congestive heart failure) (Acute) Anemia (Chronic) Chronic bronchitis (Chronic) Condition: Improved - Instructions Diet, Activity, Other Instructions: You came to the hospital because you were short of breath and your oxygen level dropped. You were treated with IV Lasix to help clear fluids from your lungs and legs, and help you with your breathing. You also were found to have low calcium, which corrected while you were in the hospital. You also had an ultrasound of your heart (echocardiogram) as we did not have records of yours in the past, and we confirmed your diastolic heart failure. You were also found to be anemic, and were seen by the economic research analyst. Medications Please resume all home medications as prescribed. Please ensure you take your Lasix 80mg daily to prevent recurrence of your heart failure. Follow Ups 1. Primary care physician, Dr. Najera, within 1 week for overall health care management. You will need to repeat your blood work so we can check your potassium levels. 2. Indirect Sales Exec, Dr. Sheppard, within 2 weeks for follow up on your lung function. 3. Building Materials Sales Attendant, Dr. Barnett, within 2 weeks for your anemia. 4. Cook Vacuum Kettle, Dr. Marrero, in 2 weeks for your heart failure follow up. If you have any new, worsening, or changing symptoms please return to the ED or call 911.P Referrals: Paulino Sheppard MD [Staff Physician] - 2 Weeks Chris Marrero MD [Staff Physician] - 2 Weeks Skyler Barnett MD [Staff Physician] - 2 Weeks Juan Najera [Non Staff, Medical] - 1 Week Disposition: HOME - Home Medications Comprehensive Discharge Medication List: Ambulatory Orders Cetirizine HCl [Zyrtec] 10 mg PO DAILY 12/12/19 Furosemide [Lasix] 80 mg PO DAILY 12/12/19 Pantoprazole Sodium 40 mg PO DAILY 12/12/19 Amlodipine Besylate 5 mg PO DAILY 12/13/19 Carbidopa-Levodopa 25-100 Tab 25 - 100 mg PO DAILY 12/13/19 Cetirizine HCl [Zyrtec] 10 mg PO DAILY 12/13/19 Clopidogrel Bisulfate [Plavix] 75 mg PO DAILY 12/13/19 Duloxetine HCl 60 mg PO BID 12/13/19 Finasteride 5 mg PO DAILY 12/13/19 Gabapentin 600 mg PO Q8H 12/13/19 Isosorbide Mononitrate ER 60 mg PO DAILY 12/13/19 Losartan Potassium 25 mg PO DAILY 12/13/19 Metoprolol Succinate 50 mg PO DAILY 12/13/19 Mirtazapine 15 mg PO HS 12/13/19 Novolog 6 unit SQ AC 12/13/19 Ranolazine ER 500 mg PO BID 12/13/19 Spiriva 18 mcg IH PRN 12/13/19 Tamsulosin HCl [Flomax] 0.4 mg PO DAILY 12/13/19 Bupropion HCl [Wellbutrin Xl] 300 mg PO DAILY 12/14/19 Ciclesonide [Omnaris] 2 puff DAILY 12/14/19 Insulin Glargine,Hum.rec.anlog [Lantus] 100 unit SQ DAILY 12/14/19 Liraglutide [Victoza -] 1.8 mg SQ DAILY@0700 12/14/19 metFORMIN HCL [Metformin ER Gastric] 500 mg PO BID 12/14/19 - Discharge Referral Referred to [facility] No ATTENDING PHYSICIAN STATEMENT I saw and evaluated the patient. I reviewed the resident's note and discussed the case with the resident. I agree with the resident's findings and plan as documented. SUBJECTIVE: OBJECTIVE: ASSESSMENT AND PLAN:
== END 2019-12-15 16:58 | disposition home or self-care (01) | DRG 291 ==
LOC: JER 13:52 → JERBED 18:08 → J4W 23:30
PROVIDERS: ADMIT Internal Medicine; ATTEND Student in an Organized Health Care Education/Training Program
DX: I11.0 Hypertensive heart disease with heart failure (principal); J96.21 Acute and chronic respiratory failure with hypoxia; J18.9 Pneumonia, unspecified organism; J98.11 Atelectasis; E46 Unspecified protein-calorie malnutrition; J44.1 Chronic obstructive pulmonary disease with (acute) exacerbation; I50.33 Acute on chronic diastolic (congestive) heart failure; E83.51 Hypocalcemia; D50.9 Iron deficiency anemia, unspecified; E11.9 Type 2 diabetes mellitus without complications; G20 Parkinson's disease; N40.0 Benign prostatic hyperplasia without lower urinary tract symptoms; I25.10 Atherosclerotic heart disease of native coronary artery without angina pectoris; E87.6 Hypokalemia; E88.09 Other disorders of plasma-protein metabolism, not elsewhere classified; E66.01 Morbid (severe) obesity due to excess calories; Z68.38 Body mass index [BMI] 38.0-38.9, adult; Z95.5 Presence of coronary angioplasty implant and graft; F41.8 Other specified anxiety disorders; J44.9 Chronic obstructive pulmonary disease, unspecified
CPT/HCPCS: 36415; 71045-TC-FY; 71275-TC; 80048; 80053; 82550; 82652; 82728; 82962; 83540; 83550; 83615; 83735; 83880; 83970; 84100; 84105; 84484; 85025; 85045; 87899; 93005; 93010; 93306-TC; 93970-TC; 97116-GP; 97161-GP; 99285-25; C9803; J1100; Q9967; U0003

== ENCOUNTER 2020-07-03 11:35 | Inpatient (IN) | payer OTHER, BC ==
[2020-07-03 11:59] VITALS: BMI 42.5
[2020-07-03 12:30] LABS: BASO % 0.4 % (0-2.0); EOS % 2.9 % (0-4.5); HEMATOCRIT 40.3 % (35.4-49); HEMOGLOBIN 12.6 GM/dL (11.7-16.9); LYMPH % 11.2 % (8-40); MCHC 31.3 g/dl (32.0-35.9); MEAN CELL VOLUME 73.5 fl (80-96); MEAN PLT VOLUME 8.3 fl (7.5-11.1); MONO % 13.6 % (3.8-10.2); NEUT % 71.9 % (42.8-82.8); PLATELET COUNT 275 K/MM3 (134-434); RBC 5.48 M/mm3 (4.00-5.60); RDW 18.8 % (11.9-15.9); WHITE BLOOD COUNT 8.5 K/mm3 (4.0-10.0)
[2020-07-03 12:38] LABS: INR 1.01 (0.83-1.09); PROTHROMBIN TIME (PATIENT) 12.4 SEC (9.7-13.0)
[2020-07-03 12:40] LABS: ACTIVATED PTT 30.5 SECONDS (25.2-36.5)
[2020-07-03 12:42] LABS: CHLORIDE 103 mmol/L (98-107); SODIUM 141 mmol/L (136-145)
[2020-07-03 12:44] LABS: ALBUMIN 2.7 g/dl (3.4-5.0); CALCIUM 8.1 mg/dL (8.5-10.1)
[2020-07-03 12:45] LABS: ANION GAP 2 MMOL/L (8-16); BLOOD UREA NITROGEN 22.4 mg/dL (7-18); CO2 36 mmol/L (21-32); GLUCOSE,RANDOM 97 mg/dL (74-106)
[2020-07-03 12:47] LABS: SGPT/ALT 9 U/L (13-61)
[2020-07-03 12:48] LABS: CREATININE 1.3 mg/dL (0.55-1.3); SGOT/AST 22 U/L (15-37)
[2020-07-03 12:49] LABS: BILIRUBIN,TOTAL 0.2 mg/dL (0.2-1); TOT PROT 6.5 g/dl (6.4-8.2)
[2020-07-03 12:50] LABS: ALK PHOS 209 U/L (45-117)
[2020-07-03 12:53] LABS: N-TERMINAL BNP 289.8 pg/ml (5-450)
[2020-07-03] MEDS ORDERED: ASPIRIN 81 MG CHEWABLE TABLETS PO ONE (12:53)
[2020-07-03 13:59] LABS: EPI CELLS 1 /uL (0-25.1); HYALINE CASTS 1 /uL (0-3.1); URINE APPEARANCE CLEAR; URINE BACTERIA 607 /uL (0-1359); URINE BILIRUBIN NEGATIVE (NEGATIVE); URINE COLOR YELLOW; URINE GLUCOSE (UA) NEGATIVE (NEGATIVE); URINE KETONE NEGATIVE (NEGATIVE); URINE LEUK ESTERASE 2+ (NEGATIVE); URINE NITRITE NEGATIVE (NEGATIVE); URINE PROTEIN NEGATIVE (NEGATIVE); URINE RBC 3 /uL (0-23.9); URINE UROBILINOGEN 0.2 mg/dL (0.2-1.0); URINE WBC 174 /uL (0-25.8)
[2020-07-03] MEDS ORDERED: CEFTRIAXONE 1 GM/50 ML BAG ONE (15:03)
[2020-07-03] MEDS ORDERED: PATIENT'S OWN MEDICATION (NON-FORMULARY) (Gabapentin [Gabapentin] 600 MG Tablet) PO SCH (23:00)
[2020-07-03] MEDS: INSULIN SLIDING SCALE (NOVOLOG) 1 VIAL SQ SCH (23:06)
[2020-07-03] MEDS ORDERED: GABAPENTIN 100 MG CAPSULE ONE (23:37)
[2020-07-03] MEDS: GABAPENTIN 300 MG CAPSULE PO SCH (23:45)
[2020-07-04] MEDS ORDERED: GABAPENTIN 100 MG CAPSULE ONE ×2 (06:09→14:49)
[2020-07-04] MEDS: GABAPENTIN 300 MG CAPSULE PO SCH ×2 (06:12→14:56)
[2020-07-04 07:15] LABS: BASO % 0.4 % (0-2.0); EOS % 2.6 % (0-4.5); HEMOGLOBIN 11.1 GM/dL (11.7-16.9); LYMPH % 17.3 % (8-40); MCH 22.8 pg (25.7-33.7); MCHC 30.8 g/dl (32.0-35.9); MEAN CELL VOLUME 74.1 fl (80-96); MEAN PLT VOLUME 8.2 fl (7.5-11.1); MONO % 15.6 % (3.8-10.2); NEUT % 64.1 % (42.8-82.8); PLATELET COUNT 209 K/MM3 (134-434); RBC 4.85 M/mm3 (4.00-5.60); RDW 18.5 % (11.9-15.9)
[2020-07-04 07:31] LABS: CHLORIDE 105 mmol/L (98-107); SODIUM 141 mmol/L (136-145)
[2020-07-04 07:39] LABS: CALCIUM 8.3 mg/dL (8.5-10.1)
[2020-07-04 07:40] LABS: ANION GAP 1 MMOL/L (8-16); BLOOD UREA NITROGEN 26.2 mg/dL (7-18); CO2 35 mmol/L (21-32); GLUCOSE,RANDOM 94 mg/dL (74-106); MAGNESIUM 2.2 mg/dL (1.8-2.4)
[2020-07-04 07:43] LABS: CREATININE 1.3 mg/dL (0.55-1.3)
[2020-07-04 07:48] LABS: N-TERMINAL BNP 234.2 pg/ml (5-450)
[2020-07-04] MEDS: INSULIN SLIDING SCALE (NOVOLOG) 1 VIAL SQ SCH ×3 (08:15→16:56)
[2020-07-04] MEDS ORDERED: FUROSEMIDE 40 MG TABLET (FP) ONE (09:03)
[2020-07-04] MEDS ORDERED: PANTOPRAZOLE 40 MG TABLET ONE (09:03)
[2020-07-04] MEDS ORDERED: ISOSORBIDE MONONITRATE 60 MG TAB.SR.24H (FP) PO ONE (09:04)
[2020-07-04] MEDS ORDERED: buPROPion HCL 100 MG TABLET ONE (09:04)
[2020-07-04] MEDS ORDERED: TAMSULOSIN HCL 0.4 MG CAP ONE (09:04)
[2020-07-04] MEDS ORDERED: LORATADINE 10 MG TABLET ONE (09:05)
[2020-07-04] MEDS ORDERED: DULoxetine HCL 30 MG CAPSULE.DR PO ONE (09:05)
[2020-07-04] MEDS: LORATADINE 10 MG TABLET PO SCH (09:06)
[2020-07-04] MEDS: PANTOPRAZOLE 40 MG TABLET PO SCH (09:06)
[2020-07-04] MEDS: FAMOTIDINE 20 MG TABLET PO SCH (09:06)
[2020-07-04] MEDS: DULoxetine HCL 30 MG CAPSULE.DR PO SCH (09:06)
[2020-07-04] MEDS: TAMSULOSIN HCL 0.4 MG CAP PO SCH (09:06)
[2020-07-04] MEDS: ENOXAPARIN NA (PORCINE) 40 MG/0.4 ML DISP.SYRIN SQ SCH (09:06)
[2020-07-04] MEDS ORDERED: ENOXAPARIN NA (PORCINE) 40 MG/0.4 ML DISP.SYRIN SQ ONE (09:06)
[2020-07-04] MEDS: FUROSEMIDE 40 MG TABLET (FP) PO SCH (09:06)
[2020-07-04] MEDS ORDERED: DEXAMETHASONE SOD PHOSPHATE 10 MG/1 ML VIAL ONE (09:24)
[2020-07-04] MEDS: DEXAMETHASONE SOD PHOSPHATE 4 MG/1 ML VIAL IVPUSH SCH (09:34)
[2020-07-04] MEDS: FLUTICASONE PROP 0.05% 16 GM NASAL SPRAY NS SCH (09:39)
[2020-07-04] MEDS ORDERED: ISOSORBIDE MONONITRATE 60 MG TAB.SR.24H (FP) PO SCH (10:00)
[2020-07-04] MEDS ORDERED: PATIENT'S OWN MEDICATION (NON-FORMULARY) (Ipratropium/Albuterol Sulfate 1 PUFF Inhaler) IH SCH (10:00)
[2020-07-04] MEDS ORDERED: CEFTRIAXONE 1 GM/50 ML BAG ONE (13:57)
[2020-07-04] MEDS ORDERED: PT OWN MED DRAWER 7, Y5N ONE (14:48)
[2020-07-04] MEDS ORDERED: CEFTRIAXONE 1 GM in DEXTROSE 5%-WATER - 50 ML IVPB ONE (15:00)
[2020-07-04] MEDS ORDERED: REMDESIVIR 200 MG in SODIUM CHLORIDE 250 ML IVPB ONE (15:00)
[2020-07-05] MEDS ORDERED: ALBUTEROL SO4 HFA INHALER IH ONE (00:04)
[2020-07-05] MEDS ORDERED: ATORVASTATIN CA 80 MG TABLET (FP) ONE (00:05)
[2020-07-05] MEDS: INSULIN SLIDING SCALE (NOVOLOG) 1 VIAL SQ SCH ×5 (00:13→21:17)
[2020-07-05] MEDS: ALBUTEROL SO4 HFA INHALER IH SCH ×5 (00:13→21:16)
[2020-07-05] MEDS: ATORVASTATIN CA 80 MG TABLET (FP) PO SCH ×2 (00:13→21:17)
[2020-07-05] MEDS: ENOXAPARIN NA (PORCINE) 40 MG/0.4 ML DISP.SYRIN SQ SCH ×3 (00:13→21:17)
[2020-07-05] MEDS: GABAPENTIN 300 MG CAPSULE PO SCH ×4 (00:16→21:17)
[2020-07-05 07:39] LABS: HEMATOCRIT 37.2 % (35.4-49); HEMOGLOBIN 11.6 GM/dL (11.7-16.9); MCH 22.8 pg (25.7-33.7); MCHC 31.3 g/dl (32.0-35.9); MEAN CELL VOLUME 72.9 fl (80-96); PLATELET COUNT 251 K/MM3 (134-434); RDW 18.5 % (11.9-15.9)
[2020-07-05 08:12] LABS: CALCIUM 8.3 mg/dL (8.5-10.1)
[2020-07-05 08:13] LABS: ALBUMIN 2.6 g/dl (3.4-5.0)
[2020-07-05 08:16] LABS: CREATININE 1.2 mg/dL (0.55-1.3)
[2020-07-05 08:17] LABS: BILIRUBIN,TOTAL 0.2 mg/dL (0.2-1)
[2020-07-05 08:18] LABS: TOT PROT 6.2 g/dl (6.4-8.2)
[2020-07-05 08:20] LABS: LDH 138 U/L (87-246)
[2020-07-05] MEDS ORDERED: PT OWN MED DRAWER 7, Y5N ONE (09:38)
[2020-07-05] MEDS: FUROSEMIDE 40 MG TABLET (FP) PO SCH (09:55)
[2020-07-05] MEDS: TAMSULOSIN HCL 0.4 MG CAP PO SCH (09:56)
[2020-07-05] MEDS: FAMOTIDINE 20 MG TABLET PO SCH (09:56)
[2020-07-05] MEDS: DULoxetine HCL 30 MG CAPSULE.DR PO SCH (09:56)
[2020-07-05] MEDS: DEXAMETHASONE SOD PHOSPHATE 4 MG/1 ML VIAL IVPUSH SCH (09:57)
[2020-07-05] MEDS: PANTOPRAZOLE 40 MG TABLET PO SCH (09:57)
[2020-07-05] MEDS: LORATADINE 10 MG TABLET PO SCH (09:57)
[2020-07-05] MEDS: FLUTICASONE PROP 0.05% 16 GM NASAL SPRAY NS SCH (13:08)
[2020-07-05] MEDS ORDERED: REMDESIVIR 100 MG in SODIUM CHLORIDE 250 ML IVPB SCH (15:00)
[2020-07-05] MEDS ORDERED: DOCUSATE SODIUM 100 MG CAPSULE (FP) PO SCH (15:30)
[2020-07-05] MEDS: OSELTAMIVIR PHOSPHATE 75 MG CAPSULE PO SCH ×2 (15:42→21:18)
[2020-07-05] MEDS ORDERED: INSULIN (NOVOLOG) ASPART 100 UNITS/ML 10ML VIAL ONE (21:11)
[2020-07-05] MEDS ORDERED: SENNOSIDES 8.6MG TABLET (FP) PO SCH (22:00)
[2020-07-05] MEDS: RANOLAZINE E.R. 500 MG TABLET (FP) PO SCH ×3 (23:13→23:34)
[2020-07-05] MEDS: CARBIDOPA/LEVODOPA 25/100 TABLET (FP) PO SCH ×2 (23:13→23:14)
[2020-07-06] MEDS ORDERED: BENZOCAINE/MENTH/CETYLPYRD CL 1 EACH LOZENGE MM PRN (00:58)
[2020-07-06] MEDS: GABAPENTIN 300 MG CAPSULE PO SCH ×3 (06:48→22:43)
[2020-07-06] MEDS: PANTOPRAZOLE 40 MG TABLET PO SCH (06:49)
[2020-07-06] MEDS: INSULIN SLIDING SCALE (NOVOLOG) 1 VIAL SQ SCH ×4 (06:51→22:43)
[2020-07-06] MEDS ORDERED: PT OWN MED DRAWER 7, Y5N ONE ×5 (07:53→22:31)
[2020-07-06 08:21] LABS: HEMATOCRIT 36.2 % (35.4-49); HEMOGLOBIN 11.4 GM/dL (11.7-16.9); MCHC 31.5 g/dl (32.0-35.9); MEAN CELL VOLUME 73.2 fl (80-96); PLATELET COUNT 234 K/MM3 (134-434); RBC 4.94 M/mm3 (4.00-5.60); RDW 18.6 % (11.9-15.9); WHITE BLOOD COUNT 5.9 K/mm3 (4.0-10.0)
[2020-07-06 09:10] LABS: BLOOD UREA NITROGEN 22.4 mg/dL (7-18)
[2020-07-06 09:11] LABS: ALBUMIN 2.8 g/dl (3.4-5.0); BILIRUBIN,TOTAL 0.2 mg/dL (0.2-1); TOT PROT 6.1 g/dl (6.4-8.2)
[2020-07-06 09:13] LABS: CREATININE 1.2 mg/dL (0.55-1.3)
[2020-07-06 09:14] LABS: CALCIUM 8.2 mg/dL (8.5-10.1); MAGNESIUM 2.3 mg/dL (1.8-2.4)
[2020-07-06] MEDS ORDERED: PATIENT'S OWN MEDICATION (NON-FORMULARY) (Ipratropium/Albuterol Sulfate 1 PUFF) IH SCH (10:00)
[2020-07-06] MEDS: FAMOTIDINE 20 MG TABLET PO SCH (10:02)
[2020-07-06] MEDS: FUROSEMIDE 40 MG TABLET (FP) PO SCH (10:02)
[2020-07-06] MEDS: RANOLAZINE E.R. 500 MG TABLET (FP) PO SCH ×2 (10:02→22:43)
[2020-07-06] MEDS: DOCUSATE SODIUM 100 MG CAPSULE (FP) PO SCH (10:02)
[2020-07-06] MEDS: SENNOSIDES 8.6MG TABLET (FP) PO SCH ×2 (10:02→22:42)
[2020-07-06] MEDS: DEXAMETHASONE SOD PHOSPHATE 4 MG/1 ML VIAL IVPUSH SCH (10:02)
[2020-07-06] MEDS: LORATADINE 10 MG TABLET PO SCH (10:03)
[2020-07-06] MEDS: TAMSULOSIN HCL 0.4 MG CAP PO SCH (10:03)
[2020-07-06] MEDS: DULoxetine HCL 30 MG CAPSULE.DR PO SCH (10:03)
[2020-07-06] MEDS: ALBUTEROL SO4 HFA INHALER IH SCH ×4 (10:03→20:30)
[2020-07-06] MEDS: ENOXAPARIN NA (PORCINE) 40 MG/0.4 ML DISP.SYRIN SQ SCH ×2 (10:04→22:43)
[2020-07-06] MEDS: FLUTICASONE PROP 0.05% 16 GM NASAL SPRAY NS SCH (10:04)
[2020-07-06] MEDS: OSELTAMIVIR PHOSPHATE 75 MG CAPSULE PO SCH ×2 (10:04→22:42)
[2020-07-06 10:07] LABS: SARS-CoV-2 NAA Not Detected (Not Detected)
[2020-07-06] MEDS ORDERED: ALBUTEROL SO4 2.5/IPRATROPIUM 0.5 INH SOL 3 ML VIAL.NEB. NEB SCH (12:00)
[2020-07-06] MEDS: CARBIDOPA/LEVODOPA 25/100 TABLET (FP) PO SCH (15:20)
[2020-07-06] MEDS: BUDESONIDE/FORMETEROL FUMARATE 160/4.5 mcg INHALER IH SCH ×2 (15:20→22:42)
[2020-07-06] MEDS: REMDESIVIR 100 MG in SODIUM CHLORIDE 250 ML IVPB SCH ×2 (15:26→18:47)
[2020-07-06] MEDS: ATORVASTATIN CA 80 MG TABLET (FP) PO SCH (22:43)
[2020-07-07] MEDS ORDERED: PT OWN MED DRAWER 7, Y5N ONE ×4 (01:26→20:55)
[2020-07-07] MEDS: GABAPENTIN 300 MG CAPSULE PO SCH ×3 (05:57→21:19)
[2020-07-07] MEDS: PANTOPRAZOLE 40 MG TABLET PO SCH (06:00)
[2020-07-07] MEDS: INSULIN SLIDING SCALE (NOVOLOG) 1 VIAL SQ SCH ×4 (06:24→21:20)
[2020-07-07] MEDS ORDERED: LOSARTAN POTASSIUM 25 MG TABLET PO ONE (07:15)
[2020-07-07] MEDS: ALBUTEROL SO4 HFA INHALER IH SCH ×4 (08:15→21:14)
[2020-07-07 08:24] LABS: HEMATOCRIT 36.1 % (35.4-49); HEMOGLOBIN 11.4 GM/dL (11.7-16.9); MCH 23.2 pg (25.7-33.7); MCHC 31.7 g/dl (32.0-35.9); MEAN CELL VOLUME 73.1 fl (80-96); MEAN PLT VOLUME 8.1 fl (7.5-11.1); PLATELET COUNT 229 K/MM3 (134-434); RBC 4.94 M/mm3 (4.00-5.60); RDW 18.4 % (11.9-15.9); WHITE BLOOD COUNT 6.7 K/mm3 (4.0-10.0)
[2020-07-07 08:46] LABS: ALBUMIN 2.7 g/dl (3.4-5.0); BLOOD UREA NITROGEN 22.4 mg/dL (7-18)
[2020-07-07 08:47] LABS: MAGNESIUM 2.2 mg/dL (1.8-2.4)
[2020-07-07 08:48] LABS: CALCIUM 8.7 mg/dL (8.5-10.1)
[2020-07-07 08:50] LABS: CREATININE 1.3 mg/dL (0.55-1.3)
[2020-07-07 08:52] LABS: BILIRUBIN,TOTAL 0.2 mg/dL (0.2-1)
[2020-07-07] MEDS: DULoxetine HCL 30 MG CAPSULE.DR PO SCH (09:55)
[2020-07-07] MEDS: ENOXAPARIN NA (PORCINE) 40 MG/0.4 ML DISP.SYRIN SQ SCH ×2 (09:55→21:17)
[2020-07-07] MEDS: DEXAMETHASONE SOD PHOSPHATE 4 MG/1 ML VIAL IVPUSH SCH (09:55)
[2020-07-07] MEDS: LORATADINE 10 MG TABLET PO SCH (09:56)
[2020-07-07] MEDS: FAMOTIDINE 20 MG TABLET PO SCH (09:56)
[2020-07-07] MEDS: TAMSULOSIN HCL 0.4 MG CAP PO SCH (09:56)
[2020-07-07] MEDS: DOCUSATE SODIUM 100 MG CAPSULE (FP) PO SCH (09:56)
[2020-07-07] MEDS: CARBIDOPA/LEVODOPA 25/100 TABLET (FP) PO SCH (09:57)
[2020-07-07] MEDS: FUROSEMIDE 40 MG TABLET (FP) PO SCH (09:57)
[2020-07-07] MEDS: OSELTAMIVIR PHOSPHATE 75 MG CAPSULE PO SCH ×2 (09:57→21:01)
[2020-07-07] MEDS: RANOLAZINE E.R. 500 MG TABLET (FP) PO SCH ×2 (09:57→21:19)
[2020-07-07] MEDS: SENNOSIDES 8.6MG TABLET (FP) PO SCH ×2 (09:57→21:18)
[2020-07-07] MEDS: FLUTICASONE PROP 0.05% 16 GM NASAL SPRAY NS SCH (09:58)
[2020-07-07] MEDS: BUDESONIDE/FORMETEROL FUMARATE 160/4.5 mcg INHALER IH SCH ×2 (09:59→21:14)
[2020-07-07] MEDS ORDERED: INSULIN (NOVOLOG) ASPART 100 UNITS/ML 10ML VIAL ONE ×2 (12:12→21:07)
[2020-07-07] MEDS: REMDESIVIR 100 MG in SODIUM CHLORIDE 250 ML IVPB SCH (14:24)
[2020-07-07] MEDS: ATORVASTATIN CA 80 MG TABLET (FP) PO SCH (21:19)
[2020-07-08] MEDS: PANTOPRAZOLE 40 MG TABLET PO SCH (06:25)
[2020-07-08] MEDS: INSULIN SLIDING SCALE (NOVOLOG) 1 VIAL SQ SCH ×4 (06:25→22:07)
[2020-07-08] MEDS: GABAPENTIN 300 MG CAPSULE PO SCH ×3 (06:25→22:05)
[2020-07-08] MEDS ORDERED: PT OWN MED DRAWER 7, Y5N ONE ×4 (06:52→21:54)
[2020-07-08 07:42] LABS: HEMATOCRIT 36.2 % (35.4-49); HEMOGLOBIN 11.6 GM/dL (11.7-16.9); MCH 23.1 pg (25.7-33.7); MEAN CELL VOLUME 72.2 fl (80-96); MEAN PLT VOLUME 8.1 fl (7.5-11.1); PLATELET COUNT 234 K/MM3 (134-434); RBC 5.01 M/mm3 (4.00-5.60); RDW 18.2 % (11.9-15.9); WHITE BLOOD COUNT 7.6 K/mm3 (4.0-10.0)
[2020-07-08 07:53] LABS: CALCIUM 8.2 mg/dL (8.5-10.1)
[2020-07-08 07:54] LABS: ALBUMIN 2.7 g/dl (3.4-5.0)
[2020-07-08 07:58] LABS: BILIRUBIN,TOTAL 0.3 mg/dL (0.2-1); CREATININE 1.2 mg/dL (0.55-1.3)
[2020-07-08] MEDS: DEXAMETHASONE SOD PHOSPHATE 4 MG/1 ML VIAL IVPUSH SCH (09:41)
[2020-07-08] MEDS: ENOXAPARIN NA (PORCINE) 40 MG/0.4 ML DISP.SYRIN SQ SCH ×2 (09:41→22:06)
[2020-07-08] MEDS: CARBIDOPA/LEVODOPA 25/100 TABLET (FP) PO SCH (09:42)
[2020-07-08] MEDS: SENNOSIDES 8.6MG TABLET (FP) PO SCH ×2 (09:42→22:07)
[2020-07-08] MEDS: RANOLAZINE E.R. 500 MG TABLET (FP) PO SCH ×2 (09:42→22:07)
[2020-07-08] MEDS: LORATADINE 10 MG TABLET PO SCH (09:42)
[2020-07-08] MEDS: TAMSULOSIN HCL 0.4 MG CAP PO SCH (09:43)
[2020-07-08] MEDS: FUROSEMIDE 40 MG TABLET (FP) PO SCH (09:43)
[2020-07-08] MEDS: DOCUSATE SODIUM 100 MG CAPSULE (FP) PO SCH (09:43)
[2020-07-08] MEDS: DULoxetine HCL 30 MG CAPSULE.DR PO SCH (09:43)
[2020-07-08] MEDS: FAMOTIDINE 20 MG TABLET PO SCH (09:44)
[2020-07-08] MEDS: OSELTAMIVIR PHOSPHATE 75 MG CAPSULE PO SCH ×2 (09:52→22:06)
[2020-07-08] MEDS: ALBUTEROL SO4 HFA INHALER IH SCH ×4 (10:02→21:00)
[2020-07-08] MEDS: FLUTICASONE PROP 0.05% 16 GM NASAL SPRAY NS SCH (10:02)
[2020-07-08] MEDS: BUDESONIDE/FORMETEROL FUMARATE 160/4.5 mcg INHALER IH SCH ×2 (10:11→22:08)
[2020-07-08] MEDS ORDERED: INSULIN (NOVOLOG) ASPART 100 UNITS/ML 10ML VIAL ONE (11:11)
[2020-07-08] MEDS: REMDESIVIR 100 MG in SODIUM CHLORIDE 250 ML IVPB SCH (15:46)
[2020-07-08] MEDS: ATORVASTATIN CA 80 MG TABLET (FP) PO SCH (22:06)
[2020-07-09] MEDS: GABAPENTIN 300 MG CAPSULE PO SCH ×2 (06:30→13:19)
[2020-07-09] MEDS: PANTOPRAZOLE 40 MG TABLET PO SCH (06:31)
[2020-07-09] MEDS: INSULIN SLIDING SCALE (NOVOLOG) 1 VIAL SQ SCH ×3 (06:31→17:17)
[2020-07-09] MEDS: TAMSULOSIN HCL 0.4 MG CAP PO SCH (08:45)
[2020-07-09] MEDS: ALBUTEROL SO4 HFA INHALER IH SCH ×3 (09:06→17:18)
[2020-07-09] MEDS: DULoxetine HCL 30 MG CAPSULE.DR PO SCH (10:37)
[2020-07-09] MEDS: LORATADINE 10 MG TABLET PO SCH (10:37)
[2020-07-09] MEDS: FAMOTIDINE 20 MG TABLET PO SCH (10:37)
[2020-07-09] MEDS: SENNOSIDES 8.6MG TABLET (FP) PO SCH (10:37)
[2020-07-09] MEDS: CARBIDOPA/LEVODOPA 25/100 TABLET (FP) PO SCH (10:37)
[2020-07-09] MEDS: RANOLAZINE E.R. 500 MG TABLET (FP) PO SCH (10:37)
[2020-07-09] MEDS: DOCUSATE SODIUM 100 MG CAPSULE (FP) PO SCH (10:37)
[2020-07-09] MEDS: ENOXAPARIN NA (PORCINE) 40 MG/0.4 ML DISP.SYRIN SQ SCH (10:38)
[2020-07-09] MEDS: FUROSEMIDE 40 MG TABLET (FP) PO SCH (10:38)
[2020-07-09] MEDS: DEXAMETHASONE SOD PHOSPHATE 4 MG/1 ML VIAL IVPUSH SCH (10:38)
[2020-07-09] MEDS: FLUTICASONE PROP 0.05% 16 GM NASAL SPRAY NS SCH (10:38)
[2020-07-09] MEDS: BUDESONIDE/FORMETEROL FUMARATE 160/4.5 mcg INHALER IH SCH (10:38)
[2020-07-09] MEDS: OSELTAMIVIR PHOSPHATE 75 MG CAPSULE PO SCH (10:40)
[2020-07-09] MEDS ORDERED: PT OWN MED DRAWER 7, Y5N ONE (10:40)
[2020-07-09 14:37] VITALS: BP 134/63; PULSE 68; TEMP 98.1
[2020-07-09] MEDS ORDERED: OSELTAMIVIR PHOSPHATE 75 MG CAPSULE PO ONE (18:00)
== END 2020-07-09 18:06 | DRG 177 ==
LOC: JER 11:35 → JERBED 13:38 → OBSVTOIN 22:47 → J4S 07-05 01:45 → J6S 07-05 20:27
PROVIDERS: ADMIT Internal Medicine; ATTEND Internal Medicine
PROC: XW033E5 Introduction of Remdesivir Anti-infective into Peripheral Vein, Percutaneous Approach, New Technology Group 5 (ICD-10-PCS; principal; 2020-07-04)
DX: U07.1 COVID-19 (principal); J12.82 Pneumonia due to coronavirus disease 2019; I50.32 Chronic diastolic (congestive) heart failure; J44.1 Chronic obstructive pulmonary disease with (acute) exacerbation; I25.10 Atherosclerotic heart disease of native coronary artery without angina pectoris; N40.0 Benign prostatic hyperplasia without lower urinary tract symptoms; I11.0 Hypertensive heart disease with heart failure; Z99.81 Dependence on supplemental oxygen; G20 Parkinson's disease; E11.9 Type 2 diabetes mellitus without complications; Z79.4 Long term (current) use of insulin; I44.0 Atrioventricular block, first degree; D50.9 Iron deficiency anemia, unspecified; E83.39 Other disorders of phosphorus metabolism; F32.9 Major depressive disorder, single episode, unspecified; F41.9 Anxiety disorder, unspecified; Z68.36 Body mass index [BMI] 36.0-36.9, adult; E66.01 Morbid (severe) obesity due to excess calories; K59.00 Constipation, unspecified; J10.1 Influenza due to other identified influenza virus with other respiratory manifestations
CPT/HCPCS: 36415; 36430; 71045-TC-FY; 80048; 80053; 81003; 82550; 82728; 82962; 83615; 83735; 83880; 84484; 85025; 85027; 85379; 85384; 85610; 85730; 86140; 86769; 86850; 86900; 86901; 87804; 93005; 93010; 94761; 97116-GP; 97162-GP; 99285-25; C9399; C9803; G0378; P9017; U0003; U0005

== ENCOUNTER 2020-10-24 12:21 | Emergency (ER) | payer OTHER, BC ==
[2020-10-24] MEDS ORDERED: ACETAMINOPHEN 1000 MG/100 ML VIAL (NON FORMULARY) IVPB ONE (13:22)
[2020-10-24 13:55] VITALS: PULSE 56; TEMP 97.8; BMI 39.5
[2020-10-24] MEDS ORDERED: ACETAMINOPHEN INJECTION 100 ML IVPB ONE (14:30)
[2020-10-24 14:35] LABS: HEMATOCRIT 33.4 % (35.4-49); HEMOGLOBIN 10.6 GM/dL (11.7-16.9); LYMPH % 11.6 % (8-40); MCH 22.5 pg (25.7-33.7); MCHC 31.8 g/dl (32.0-35.9); MEAN CELL VOLUME 70.8 fl (80-96); MEAN PLT VOLUME 7.9 fl (7.5-11.1); MONO % 11.8 % (3.8-10.2); NEUT % 73.6 % (42.8-82.8); PLATELET COUNT 206 10^3/uL (134-434); RBC 4.71 M/mm3 (4.00-5.60); RDW 17.3 % (11.9-15.9); WHITE BLOOD COUNT 6.2 K/mm3 (4.0-10.0)
[2020-10-24 15:00] LABS: CHLORIDE 103 mmol/L (98-107); SODIUM 139 mmol/L (136-145)
[2020-10-24 15:02] LABS: CALCIUM 8.2 mg/dL (8.5-10.1)
[2020-10-24 15:03] LABS: ALBUMIN 2.9 g/dl (3.4-5.0); BLOOD UREA NITROGEN 19.9 mg/dL (7-18); GLUCOSE,RANDOM 110 mg/dL (74-106)
[2020-10-24 15:06] LABS: SGOT/AST 13 U/L (15-37); SGPT/ALT 7 U/L (13-61)
[2020-10-24 15:08] LABS: TOT PROT 6.2 g/dl (6.4-8.2)
[2020-10-24 15:09] LABS: ALK PHOS 124 U/L (45-117)
[2020-10-24 15:13] LABS: ANION GAP 5 MMOL/L (8-16); BILIRUBIN,TOTAL 0.4 mg/dL (0.2-1); CO2 32 mmol/L (21-32)
[2020-10-24] MEDS ORDERED: LIDOCAINE 5% TOPICAL PATCH TP ONE (15:23)
[2020-10-24] MEDS ORDERED: LIDOCAINE 5% TOPICAL PATCH ONE (15:41)
[2020-10-24 16:19] VITALS: BP 102/40
[2020-10-24] MEDS ORDERED: LIDOCAINE PATCH REMOVAL MC ONE (22:00)
== END 2020-10-25 11:14 | disposition home or self-care (01) ==
LOC: JER 12:21
PROC: 3E033GC Introduction of Other Therapeutic Substance into Peripheral Vein, Percutaneous Approach (ICD-10-PCS; principal; 2020-10-24)
DX: R55 Syncope and collapse (principal); W19.XXXA Unspecified fall, initial encounter
CPT/HCPCS: 36415; 70450-TC; 71045-TC-FY; 71250-TC; 72125-TC; 72128-TC; 73030-TC-RT-FY; 73060-TC-RT-FY; 73560-TC-RT-FY; 80053; 82550; 84484; 85025; 93005; 93010; 99285-25; J0131